=== PATIENT | female | born 1960 | race Caucasian/White ===

== ENCOUNTER 2018-02-18 23:31 | Emergency (ER) | payer MEDICAID, SELFPAY ==
--- NOTE | 2018-02-18 22:52 | RAD_ITS ---
STUDY: X-RAY - RIGHT FOOT CLINICAL: Female, 57 years old. Foot pain after injury. TECHNIQUE: 3 view(s) of the foot. COMPARISON: None. FINDINGS: Dorsal enthesophyte and plantar spur of the calcaneus. Possible avulsion injury from the anterior calcaneus, lateral surface versus an unusual os peroneum. Normal talus. Normal tarsal bones. Normal visualized subtalar, talonavicular, calcaneocuboid, tarsal and tarsometatarsal articulations. Chronic cyst formation in the head of the fifth metatarsal. There is degenerative arthrosis of the metatarsophalangeal joint of the hallux . Normal tibial and fibular sesamoid bones. Normal interphalangeal joint of the great toe. Normal phalanges of the great toe. Normal second through fifth metatarsophalangeal joints. Normal interphalangeal joints and phalanges of the lesser toes. The soft tissue structures are unremarkable. RAD/Foot min 3 Views IMPRESSION: Possible avulsion injury (calcaneocuboid ligament) from the lateral surface of the anterior calcaneus versus an unusual os peroneum. Otherwise, negative for fracture or dislocation. Degenerative changes at the first metatarsophalangeal joint. Degenerative cysts of the head of the fifth metatarsal. Electronically Signed: Rocío Thornton MD at 23:31 EDT , Service support ,
--- NOTE | 2018-02-18 22:52 | RAD_ITS ---
STUDY: X-RAY - RIGHT ANKLE REASON FOR EXAM: Female, 57 years old. Right ankle pain after injury. TECHNIQUE: 3 view(s) of the ankle. COMPARISON: None. FINDINGS: Normal visualized distal tibia and fibula. Mild chronic hypertrophic changes without acute fracture of the medial malleolus or lateral malleolus. Normal tibiotalar articulation and ankle mortise. Plantar spur and dorsal enthesophyte of the calcaneus. The visualized subtalar, talonavicular, calcaneocuboid and tarsal articulations are normal. Soft tissue swelling. RAD/Ankle min 3 Views IMPRESSION: Soft tissue swelling without underlying fracture deformity. Electronically Signed: Rocío Thornton MD at 23:32 EDT , Service support ,
--- NOTE | 2018-02-19 01:16 | ED.VISSUMM ---
- ER Visit Summary Date of Service: 02/19/18 Chief Complaint: Right ankle and foot injury History of Present Illness: The patient is a 57 F inversion injury left ankle and foot at 1630 today. Missed the last step. No falls or head injuries. No paresthesias. No history of fractures. No medicines taken prior to arrival. States does have a history of gastric ulcers in the past. No paresthesias. Pain with ambulation. Physical Examination: General: Alert and oriented ?3, no acute distress HEENT: Normocephalic, atraumatic. Moist mucosa membranes Neck: supple, nontender. Cardiovascular: Regular rate and rhythm, no murmurs Respiratory: Normal breath sounds, symmetric, no distress Abdomen: Soft, nontender, nondistended Extremities: right lower extremity: No knee pain. There is mild lateral malleolus tenderness with swelling. Tender to the midfoot and proximal fifth base. Skin intact. Neuro: no focal neurological deficits. Test Results: X-ray right ankle and foot: No fracture dislocation Emergency Department Course and Treatment: Ice was placed, Tylenol given. X-rays negative. Aircast and crutches. Continue Tylenol. Patient will follow-up as an outpatient. All questions were answered. Treatment Plan: [] Disposition: Discharge Impression: Right foot and ankle sprain This note was generated with [employer] dictation software. It may contain incorrect words, spelling, and punctuation that were not noted in review of the chart prior to signing ED Disposition - Plan for ED Patient: Disposition: Home or Assisted Living Diagnosis: Strain of right ankle and foot Referrals: Sarah Fraser MD [Primary Care Provider] -
--- NOTE | 2018-02-19 01:20 | ED.DCSUM_ITS ---
- ER Visit Summary Date of Service: 02/19/18 Chief Complaint: Right ankle and foot injury History of Present Illness: The patient is a 57 F inversion injury left ankle and foot at 1630 today. Missed the last step. No falls or head injuries. No paresthesias. No history of fractures. No medicines taken prior to arrival. States does have a history of gastric ulcers in the past. No paresthesias. Pain with ambulation. Physical Examination: General: Alert and oriented ?3, no acute distress HEENT: Normocephalic, atraumatic. Moist mucosa membranes Neck: supple, nontender. Cardiovascular: Regular rate and rhythm, no murmurs Respiratory: Normal breath sounds, symmetric, no distress Abdomen: Soft, nontender, nondistended Extremities: right lower extremity: No knee pain. There is mild lateral malleolus tenderness with swelling. Tender to the midfoot and proximal fifth base. Skin intact. Neuro: no focal neurological deficits. Test Results: X-ray right ankle and foot: No fracture dislocation Emergency Department Course and Treatment: Ice was placed, Tylenol given. X- rays negative. Aircast and crutches. Continue Tylenol. Patient will follow- up as an outpatient. All questions were answered. Treatment Plan: [] Disposition: Discharge Impression: Right foot and ankle sprain This note was generated with [employer] dictation software. It may contain incorrect words, spelling, and punctuation that were not noted in review of the chart prior to signing ED Disposition - Plan for ED Patient: Disposition: Home or Assisted Living Diagnosis: Strain of right ankle and foot Referrals: Sarah Fraser MD [Primary Care Provider] -
== END 2018-02-18 23:45 | disposition home or self-care (01) ==
PROVIDERS: Emergency Provider Emergency Medicine; Family Provider Internal Medicine; PCP Internal Medicine
DX: S93.401A Sprain of unspecified ligament of right ankle, initial encounter (principal); X50.1XXA Overexertion from prolonged static or awkward postures, initial encounter; S93.601A Unspecified sprain of right foot, initial encounter; Z87.19 Personal history of other diseases of the digestive system; Z79.899 Other long term (current) drug therapy; I10 Essential (primary) hypertension; E78.00 Pure hypercholesterolemia, unspecified
CPT/HCPCS: 73610; 73630; 99283

== ENCOUNTER 2019-03-04 21:38 | Emergency (ER) | payer MEDICAID, SELFPAY ==
[2019-03-04 21:38] VITALS: BP 140/97; PULSE 91; RESP 15; TEMP 36.4; BMI 33.3
--- NOTE | 2019-03-04 22:27 | ED.RN ---
pt was asked to provide a urine sample. pt was unable to going. pt was encouraged to drink. water bottle in patient hand. irasema medina rn [id number]
--- NOTE | 2019-03-04 22:29 | ED.DCSUM_ITS ---
- ER Visit Summary Date of Service: 03/04/19 Chief Complaint: Urinary frequency History of Present Illness: The patient is a 58 F presenting with urinary frequency. She states the symptoms started 1 day ago. She has had similar symptoms in the past with UTIs. She has bilateral flank pain left greater than right. She denies hematuria. She denies dysuria. Denies fever. Denies nausea or vomiting. Denies abdominal pain. Denies other complaints. Physical Examination: Vitals are stable. Patient is afebrile. Alert no acute distress. HEENT exam is unremarkable. Neck is supple. Lungs are clear and equal bilaterally. Heart is regular rate and rhythm. Abdomen is soft nontender nondistended. No guarding or rebound Back: Left mild left CVA tenderness Extremities are unremarkable. Skin is warm and dry. Remainder of exam is unremarkable. Emergency Department Course and Treatment: Urinalysis shows 10-25 white blood cells, 0 red cells, 0 epithelial cells. Patient was given Cipro and a prescription for Cipro. She is advised to follow up with her primary care physician. Advised to return to ED if worsening complaints. Disposition: Discharge home Impression: UTI This note was generated with [employer] dictation software. It may contain incorrect words, spelling, and punctuation that were not noted in review of the chart prior to signing ED Disposition - Plan for ED Patient: Instructions: ED UTI Cystitis Female Prescriptions: Ciprofloxacin [Cipro] 500 mg PO BID #14 tablet Referrals: Sarah Fraser MD [Primary Care Provider] -
[2019-03-04 23:10] LABS: Bacteria 0 SEEN /hpf (None Seen); Mucous, Urine 0 SEEN /hpf (<or=2+); Red Blood Cells-Urine 0 SEEN /hpf (0-5); Squamous Epithelial Cells - UA 0 SEEN /hpf (5-10)
[2019-03-04 23:12] LABS: Color, Urine Yellow (Yellow); Glucose, Dipstick Normal (Normal); Ketone-Dipstick Negative (Negative); Leukocyte Esterase-Dipstick 500 /ul (Negative); Nitrite-Dipstick Negative (Negative); Occult Blood-Urine 50 /ul (Negative); Protein-Dipstick 30 mg/dl (Negative); Urine Bilirubin Dipstick Negative (Negative); Urine Clarity Sl. Cloudy (Clear); Urine Urobilinogen Normal (Normal)
[2019-03-04 23:19] LABS: White Blood Cells 10-25 SEEN /hpf (0-5)
--- NOTE | 2019-03-04 23:27 | ED.DEP ---
ED Disposition - Plan for ED Patient: Instructions: ED UTI Cystitis Female Prescriptions: Ciprofloxacin [Cipro] 500 mg PO BID #14 tablet Referrals: Sarah Fraser MD [Primary Care Provider] -
[2019-03-04] MEDS: Ciprofloxacin 500 MG Tablet PO (23:34)
== END 2019-03-04 23:34 | disposition home or self-care (01) ==
LOC: ED 22:21
PROVIDERS: Emergency Provider Emergency Medicine; Family Provider Internal Medicine; PCP Internal Medicine
DX: N39.0 Urinary tract infection, site not specified (principal); Z87.440 Personal history of urinary (tract) infections; I10 Essential (primary) hypertension; G40.909 Epilepsy, unspecified, not intractable, without status epilepticus; Z79.899 Other long term (current) drug therapy
CPT/HCPCS: 81001; 99282

== ENCOUNTER 2019-05-14 03:22 | Emergency (ER) | payer MEDICAID, SELFPAY ==
[2019-05-14 03:23] VITALS: BP 139/87; PULSE 78; RESP 16; TEMP 36.6; O2SAT 92; BMI 35.2
[2019-05-14 05:13] LABS: Color, Urine Yellow (Yellow); Glucose, Dipstick Normal (Normal); Ketone-Dipstick Negative (Negative); Leukocyte Esterase-Dipstick 500 /ul (Negative); Nitrite-Dipstick Negative (Negative); Occult Blood-Urine 10 /ul (Negative); Protein-Dipstick 30 mg/dl (Negative); Specific Gravity, Urine 1.025 (1.002-1.030); Urine Bilirubin Dipstick Negative (Negative); Urine Clarity Sl. Cloudy (Clear); Urine Urobilinogen 1 mg/dl (Normal)
--- NOTE | 2019-05-14 05:16 | ED.DCSUM_ITS ---
- ER Visit Summary Date of Service: 05/14/19 Chief Complaint: Possible bladder infection History of Present Illness: The patient is a 58 F who presents with a possible bladder infection that began today. Patient states she has been having some urinary frequency today. Patient denies any dysuria or hematuria. Patient does admit to some low back pain. Patient admits to some nausea but denies any vomiting. Patient denies any fevers or chills. Patient denies any chest pain or shortness of breath. Physical Examination: Vital signs are stable. Patient is afebrile. Patient is in no acute distress. Oral mucosa is pink and moist. Neck is supple. Trachea is midline. There is no JVD noted. Heart was regular rate and rhythm. Lungs are clear and equal bilaterally. Abdomen is soft. Bowel sounds are normal. There is some mild tenderness in the lower abdomen. There is no rebound or guarding noted. Cranial nerves II through XII are intact. There are no focal motor or sensory deficits noted. Test Results: Urinalysis was obtained. Leukocyte esterase was 500 with 25-50 white blood cells and 1+ bacteria. Emergency Department Course and Treatment: Patient was given a prescription for Cipro since she is allergic to Bactrim and penicillins. Patient was given her first dose here. Patient was instructed to follow-up with her primary care physician in 3 to 5 days for further evaluation. Patient understood and was agreeable with the plan. All questions were answered. Disposition: Discharge home Impression: 1. Urinary tract infection This note was generated with [employer] dictation software. It may contain incorrect words, spelling, and punctuation that were not noted in review of the chart prior to signing ED Disposition - Plan for ED Patient: Disposition: Home or Assisted Living Diagnosis: Urinary tract infection Instructions: Bladder Infection, Female (Adult) Prescriptions: Ciprofloxacin [Cipro] 500 mg PO BID #6 tab Prescription Printed Referrals: Sarah Fraser MD [Primary Care Provider] - 3-5 Days
[2019-05-14 05:24] LABS: Bacteria 1+ /hpf (None Seen); Mucous, Urine RARE /hpf (<or=2+); Red Blood Cells-Urine 0-5 SEEN /hpf (0-5); Squamous Epithelial Cells - UA 0-5 SEEN /hpf (5-10); White Blood Cells 25-50 SEEN /hpf (0-5)
[2019-05-14] MEDS: Ciprofloxacin 250 MG Tablet 500 MG PO (06:13)
[2019-05-14 06:15] VITALS: RESP 16
== END 2019-05-14 06:16 | disposition home or self-care (01) ==
PROVIDERS: Emergency Provider Emergency Medicine; Family Provider Internal Medicine; PCP Internal Medicine
DX: N39.0 Urinary tract infection, site not specified (principal); I10 Essential (primary) hypertension; E78.00 Pure hypercholesterolemia, unspecified; G40.909 Epilepsy, unspecified, not intractable, without status epilepticus; Z79.899 Other long term (current) drug therapy
CPT/HCPCS: 81001; 99283

== ENCOUNTER 2019-10-15 16:22 | Emergency (ER) | payer MEDICAID, SELFPAY ==
[2019-10-15 16:23] VITALS: BP 147/87; PULSE 73; RESP 15; TEMP 36.4; O2SAT 100; BMI 26.4
--- NOTE | 2019-10-15 16:32 | RAD_ITS ---
HISTORY: HISTORY: FALL TODAY, PAIN 5TH [facility] XR Hand Min 3 Views COMPARISON: None FINDINGS: # of images incl. paperwork: 3 3 views of the right hand. On the volar surface of the proximal and of the third distal phalanx there is a 1 x 1 mm calcification which could represent an avulsion fracture from the insertion of the flexor tendon. Interphalangeal joint arthritis is mild. First carpometacarpal joint arthritis is mild with lateral subluxation of the first metacarpal on the trapezium. No foreign bodies are perceived. RAD/Hand Min 3 Views IMPRESSION: No evidence of acute fracture or dislocation. No evidence of injury to the fifth digit. On the plantar surface of the proximal end of the third distal phalanx there is a 1 x 1 mm ossicle which could represent an avulsion fracture. at 2227 Reported and signed by: Chris Levine MD Electronically Signed: Chris Levine MD at 22:26 EST Tel , Service support ,
--- NOTE | 2019-10-15 16:33 | ED.DCSUM_ITS ---
History of Present Illness Chief Complaint: Upper Extremity Injury Detail of Chief Complaint: Left hand and right hip injury Informant: Patient Onset: Today Current Severity: Moderate Maximum Severity: Moderate Narrative: Patient presents after fall on icy sidewalk earlier this morning. She states she injured her left hand and her right hip. She has been able to ambulate think she just bruised her hip. She is left-hand dominant. She has not taken anything for pain. She denies striking her head or any neck or back pain. - Past Medical History (1) Hypertension Status: Chronic (2) High cholesterol Status: Chronic (3) GERD (gastroesophageal reflux disease) Status: Chronic (4) Seizure Status: Chronic Past Medical History - Allergies and Home Meds Allergies/Adverse Reactions: Allergies ibuprofen Allergy (Verified 05/14/19 03:28) Swelling Penicillins Allergy (Verified 05/14/19 03:28) Angioedema sulfamethoxazole [From ] Allergy (Verified 05/14/19 03:28) Hives trimethoprim [From ] Allergy (Verified 05/14/19 03:28) Hives Primary Care Physician: Sarah Fraser MD [Primary Care Provider] - Prior records reviewed: Yes Smoking Status: Never smoker Review of Systems General: Denies: Chills, Fever Eyes: Denies: Visual changes - bilaterally ENT: Denies: Bilateral ear pain Cardiovascular: Denies: Chest pain Respiratory: Denies: Dyspnea, Cough Gastrointestinal: Denies: Abdominal pain, Nausea, Vomiting Genitourinary: Denies: Hematuria Musculoskeletal: Reports: Extremity Pain. Denies: Neck pain, Back pain Skin: Denies: Rash, Wounds Neurological: Denies: Weakness, Parasthesia Hematologic: Denies: Easy bruising Allergy: Denies: Uticaria Physical Exam Vital Signs/Narrative: Vital Signs Temp Pulse Resp BP Pulse Ox 10/15/19 16:23 97.5 F L 73 15 147/87 H 100 Inital Vital Signs reviewed: Yes General: Well nourished, Well developed Head: Normocephalic ENT: Moist mucous membranes Neck: Supple Cardiovascular: Regular rate, Regular rhythm Respiratory: No distress, CTA bilaterally Abdomen: Soft, Nontender Extremities: - - Patient has mild tenderness in the left hand along the base of the fifth finger and over the fifth metacarpal. No deformity noted. She has good cap refill distally with good sensation. She can wiggle all fingers. Patient has tenderness of the greater trochanter of the right hip. She has no pain with logroll and normal range of motion at the hip. Skin: Normal color Neurological: Alert, Oriented x3 Psychological: Normal affect Diagnostic/Tx/Re-eval Left hand x-rays per my review reveal no evidence of fracture. - Medical Decision Making Patient is given Tylenol for pain as she does have an allergy to anti- inflammatories. Left hand is placed in an [place] wrap. Should be referred to orthopedics if not improving. ED Disposition - Plan for ED Patient: Disposition: Home or Assisted Living Diagnosis: Hand contusion, Contusion, hip, Fall Instructions: CONTUSION, Upper Extremity Referrals: Sarah Fraser MD [Primary Care Provider] - Lynn Pedraza DO [STAFF PHYSICIAN] - 1 Week if not improving
[2019-10-15] MEDS: Acetaminophen 500 MG Tablet 1000 MG PO (16:38)
== END 2019-10-15 17:25 | disposition home or self-care (01) ==
PROVIDERS: Emergency Provider Emergency Medicine; Family Provider Internal Medicine; PCP Internal Medicine
DX: S60.222A Contusion of left hand, initial encounter (principal); S70.01XA Contusion of right hip, initial encounter; W00.0XXA Fall on same level due to ice and snow, initial encounter; Y93.9 Activity, unspecified; Y92.480 Sidewalk as the place of occurrence of the external cause; Y99.9 Unspecified external cause status; I10 Essential (primary) hypertension; E78.00 Pure hypercholesterolemia, unspecified; K21.9 Gastro-esophageal reflux disease without esophagitis; Z79.899 Other long term (current) drug therapy; Z88.0 Allergy status to penicillin; Z88.1 Allergy status to other antibiotic agents; Z88.2 Allergy status to sulfonamides
CPT/HCPCS: 73130; 99283

== ENCOUNTER → 2020-10-21 17:29 | Outpatient (CLI) | payer MEDICAID, SELFPAY | PROVIDERS: PCP Internal Medicine; Referring Provider Nurse Practitioner; Visit Provider Nurse Practitioner | DX: Z20.828 Contact with and (suspected) exposure to other viral communicable diseases (principal) | CPT/HCPCS: 87635; C9803; U0003 ==

== ENCOUNTER 2021-05-09 05:41 | Emergency (ER) | payer MEDICAID, SELFPAY ==
[2021-05-09 05:42] VITALS: BP 122/79; PULSE 75; RESP 16; TEMP 36.8; O2SAT 96; BMI 26.4
--- NOTE | 2021-05-09 05:44 | ED.VIS.FEGU ---
HPI HPI - Female History of Present Illness Chief Complaint: Complaint Informant: patient Pain Pain: Positive for Pelvic Pain Onset: Days (3) Context: Gradual Onset Timing: Continuous Quality: Positive for Aching Location: Suprapubic Current Severity: Mild Maximum Severity: Mild Worsened by: - (urinating) Relieved by: - (nothing) Associated Symptoms Associated Symptoms: Positive for Frequency and Urgency; Negative for Dysuria and Hematuria Narrative Narrative: Patient presents by EMS saying that she is concerned she has a bladder infection. She states she has had these before and this feels similar except the pain is a little worse. She denies any nausea, vomiting, fevers, back pain although she has chronic low back pain that has not changed. No hematuria or urinary retention. No vaginal complaints. [facility] Medical History (Updated 05/09/21 @ 06:[address] Vidal Holland MD) GERD (gastroesophageal reflux disease) High cholesterol Hypertension Seizure Home Medications Omeprazole [Prilosec] 40 mg PO DAILY 03/26/14 [History Last Taken 03/04/19] hydrochlorothiazide 25 mg PO DAILY 03/26/14 [History Last Taken 03/04/19] phenobarbital 97.2 mg PO BID 03/26/14 [History Last Taken 03/04/19] phenytoin sodium extended 200 mg PO BID 03/26/14 [History Last Taken 03/04/19] amlodipine 5 mg PO DAILY 07/22/16 [History Last Taken 03/04/19] Allergy/AdvReac Type Severity Reaction Status Date / Time ibuprofen Allergy Swelling Verified 05/14/19 03:28 Penicillins Allergy Angioedema Verified 05/14/19 03:28 sulfamethoxazole Allergy Hives Verified 05/14/19 03:28 [From ] trimethoprim [From ] Allergy Hives Verified 05/14/19 03:28 Social History Smoking Status: Never smoker ROS ROS ED Constitutional Constitutional ED: Denies chills or fever(s) Eyes Eyes: Denies change in vision or diplopia ENT ENT ED: Denies rhinorrhea or sore throat Cardiovascular Cardiovascular: Denies chest pain or palpitations Respiratory/Chest Respiratory/Chest: Denies cough or dyspnea Gastrointestinal Gastrointestinal: Reports abdominal pain; Denies diarrhea, nausea or vomiting Genitourinary Genitourinary ED: Reports as per HPI, urinary frequency and urinary urgency; Denies dysuria or hematuria Musculoskeletal Musculoskeletal: Reports back pain; Denies neck pain Integumentary Denies abscess or rash Neurologic Neurologic: Denies headache(s), paresthesias or weakness Psychiatric Psychiatric: Denies anxiety or suicidal thoughts EXAM Physical Exam Const Vital Signs: 05/09/21 05:42 Temperature 98.3 F Temperature Source Oral Pulse Rate 75 Respiratory Rate 16 Blood Pressure 122/79 H Blood Pressure Mean 93 Pulse Ox 96 Oxygen Delivery Method Room Air Positive well nourished and well developed General Appearance ED: well developed and NAD HEENT Reports moist mucous membranes normocephalic and atraumatic Eyes PERRL and EOMs intact bilaterally Neck full ROM and supple GI non-distended Auscultation: normoactive bowel sounds Palpation: soft and tender suprapubic; Negative for guarding or rebound tenderness present Back/Spine no CVA tenderness General Back: other FROM Extremity normal to inspection General Extremety ED: Negative for edema or tenderness General Extremity: Negative for edema Neuro oriented x3, CN's II-XII intact bilaterally and no sensory deficits noted Sensorium / Orientation: awake and alert Motor Exam: strength 5/5 throughout Skin no rashes or lesions noted and no wounds MDM MDM MDM Narrative Medical decision making narrative: Urinalysis consistent with infection/cystitis. Given patient's reaction to antibiotics including hives from Bactrim and angioedema to penicillins, I think at this time the most appropriate first-line treatment is a dose of fosfomycin which is ordered for prior to discharge. Lab Data Attestation: I reviewed the patient's lab results. Labs: Laboratory Results - last 24 hr 05/09/21 06:05 Urine Color Yellow Urine Clarity Clear Urine pH 7.0 Ur Specific [place] 1.010 Urine Protein 30 H Urine Glucose (UA) Normal Urine Ketones 5 H Urine Occult Blood 25 H Urine Nitrite Negative Urine Bilirubin Negative Urine Urobilinogen 1 H Ur Leukocyte Esterase 500 H Urine RBC 0-5 SEEN Urine WBC >100 SEEN Ur Squamous Epith Cells 0-5 SEEN Urine Bacteria 2+ Urine Mucus 0 SEEN Discharge Plan Triage Chief Complaint: Complaint ED Provider: Vidal Holland Dx/Rx/DC Orders Clinical Impression: Acute cystitis Instructions: Understanding Urinary Tract ... Prescriptions: No Action phenobarbital 97.2 MG tablet 97.2 mg PO BID RF: 0 phenytoin sodium extended 100 MG capsule 200 mg PO BID RF: 0 hydrochlorothiazide 25 MG tablet 25 mg PO DAILY RF: 0 Omeprazole [Prilosec] 40 MG capsule 40 mg PO DAILY RF: 0 amlodipine 5 MG tablet 5 mg PO DAILY RF: 0 Primary Care Provider: Sarah Fraser Referrals: Sarah Fraser MD [Primary Care Provider] - 3-5 Days if not improving Disposition Disposition: Home, Self Care
[2021-05-09 06:09] LABS: Mucous, Urine 0 SEEN /hpf (<or=2+)
[2021-05-09 06:10] LABS: Color, Urine Yellow (Yellow); Glucose, Dipstick Normal (Normal); Ketone-Dipstick 5 mg/dl (Negative); Leukocyte Esterase-Dipstick 500 /ul (Negative); Nitrite-Dipstick Negative (Negative); Occult Blood-Urine 25 /ul (Negative); Protein-Dipstick 30 mg/dl (Negative); Urine Bilirubin Dipstick Negative (Negative); Urine Clarity Clear (Clear); Urine Urobilinogen 1 mg/dl (Normal)
[2021-05-09 06:18] LABS: Bacteria 2+ /hpf (None Seen); Red Blood Cells-Urine 0-5 SEEN /hpf (0-5); Squamous Epithelial Cells - UA 0-5 SEEN /hpf (5-10); White Blood Cells >100 SEEN /hpf (0-5)
[2021-05-09] MEDS: FOSFOMYCIN TROMETHAMINE 3 GM PACKET PO (07:26)
[2021-05-09 07:29] VITALS: BP 119/85; PULSE 65; RESP 15; O2SAT 96
== END 2021-05-09 07:30 | disposition home or self-care (01) ==
PROVIDERS: Emergency Provider Emergency Medicine; PCP Internal Medicine
DX: N30.00 Acute cystitis without hematuria (principal); I10 Essential (primary) hypertension; K21.9 Gastro-esophageal reflux disease without esophagitis; Z79.899 Other long term (current) drug therapy
CPT/HCPCS: 81001; 99284

== ENCOUNTER → 2021-09-29 22:53 | Outpatient (CLI) | payer BC, MEDICAID, SELFPAY | PROVIDERS: PCP Internal Medicine; Visit Provider Physician Assistant | DX: Z11.52 Encounter for screening for COVID-19 (principal) | CPT/HCPCS: 87635; U0005; U0003 ==

== ENCOUNTER 2021-10-12 20:46 | Emergency (ER) | payer BC, MEDICAID, SELFPAY ==
[2021-10-12 20:47] VITALS: BP 137/77; PULSE 73; RESP 18; TEMP 35.7; O2SAT 100; BMI 33.2
--- NOTE | 2021-10-12 21:10 | RAD_ITS ---
EXAM: XR LEFT SHOULDER COMPLETE, 2 OR MORE VIEWS CLINICAL INDICATION: Injury/Pain TECHNIQUE: Two or more views of the left shoulder. This report was created using [employer] report generation technology. COMPARISON: None. FINDINGS: BONES/JOINTS: Mild degenerative changes of the acromiohumeral joint. Type II acromion with curved undersurface. No subacromial enthesophyte. No acute or healing fracture or malalignment. No sclerotic or destructive changes observed. SOFT TISSUES: No focal soft tissue abnormalities. No soft tissue swelling or gas. No radiopaque foreign body. RAD/Shoulder min 2 Views IMPRESSION: No acute or healing fracture or malalignment. Electronically Signed: Kb Singh MD at 22:02 EST Tel , Service support ,
--- NOTE | 2021-10-12 21:47 | EX.ED.DYSGE1 ---
HPI History of Present Illness Chief Complaint: Complaint Informant: patient Onset/Context/Timing Onset: Yesterday (Urinary symptoms started yesterday with frequency) and Month(s) (Atraumatic left shoulder pain for 1 to 2 months) Timing: Continuous (Shoulder pain is continuous), Intermittent and Waxes and wanes Quality: and musculoskeletal, pain Location: Left shoulder Current Severity: Mild Maximum Severity: Moderate Worsened by: Use Relieved by: Rest Associated Symptoms Associated Symptoms: No other symptoms Narrative Narrative: Patient is an elderly woman who presents with atraumatic left shoulder pain. She states she took ibuprofen with no improvement. She denies paresthesia, anesthesia medics. She denies prior fracture, dislocation or subluxation. She does report frequency without dysuria or hematuria. She states she has not had urinary tract infection in some time. She denies any fever, chills or night sweats. She denies nausea, vomiting or diarrhea. She denies flank pain. Prior similar symptoms: Yes Recent Illness/Hospitalization: No PFSH PFSH Medical History Encounter for screening for COVID-19 GERD (gastroesophageal reflux disease) High cholesterol Hypertension Seizure Home Medications Omeprazole [Prilosec] 40 mg PO DAILY 03/26/14 [History Last Taken 03/04/19] hydrochlorothiazide 25 mg PO DAILY 03/26/14 [History Last Taken 03/04/19] phenobarbital 97.2 mg PO BID 03/26/14 [History Last Taken 03/04/19] phenytoin sodium extended 200 mg PO BID 03/26/14 [History Last Taken 03/04/19] amlodipine 5 mg PO DAILY 07/22/16 [History Last Taken 03/04/19] ciprofloxacin HCl 500 mg PO BID #6 tablet 10/12/21 [Rx Last Taken Unknown] hydrocodone-acetaminophen 1 tab PO Q6H PRN PRN 3 Days #10 tablet 10/12/21 [Rx Last Taken Unknown] Allergy/AdvReac Type Severity Reaction Status Date / Time ibuprofen Allergy Swelling Verified 05/14/19 03:28 Penicillins Allergy Angioedema Verified 05/14/19 03:28 sulfamethoxazole Allergy Hives Verified 05/14/19 03:28 [From ] trimethoprim [From ] Allergy Hives Verified 07/14/19 03:28 Social History (Updated 10/12/21 @ 21:[address] Madi Clifford MD) household members: none Smoking Status: Never smoker substance use type: does not use ROS ROS ED Constitutional Constitutional ED: Denies chills, fever(s), subjective, sweats or weight loss Eyes Eyes: Denies blurry vision, change in vision or diplopia ENT ENT ED: Denies ear pain, rhinorrhea or sore throat Cardiovascular Cardiovascular: Denies chest pain, palpitations or racing heartbeat Respiratory/Chest Respiratory/Chest: Denies cough, dyspnea, dyspnea on exertion or sputum Gastrointestinal Gastrointestinal: Denies abdominal pain, diarrhea, nausea or vomiting Genitourinary Genitourinary ED: Reports urinary frequency; Denies dysuria or hematuria Musculoskeletal Musculoskeletal: Reports other Details: Left shoulder pain ; Denies arthralgias, back pain, myalgias or neck pain Integumentary Denies rash Neurologic Neurologic: Denies headache(s), paresthesias or weakness EXAM Physical Exam Const Vital Signs: 10/12/21 20:47 10/12/21 22:47 Temperature 96.2 F L Temperature Source Temporal Pulse Rate 73 74 Respiratory Rate 18 16 Blood Pressure 137/77 H 130/81 H Blood Pressure Mean 97 97 Pulse Ox 100 99 Oxygen Delivery Method Room Air Room Air Positive well nourished and well developed General Appearance ED: well developed and NAD; Negative for cyanotic, diaphoretic or pallor HEENT Reports TM's clear and moist mucous membranes Negative for trauma or tenderness Tympanic Membrane ED: Yes TM's clear Eyes PERRL and EOMs intact bilaterally General Eye ED: Negative for pale conjunctiva or scleral icterus Neck no lymphadenopathy, supple and no JVD Resp normal respiratory effort and clear to auscultation bilaterally Cardio regular rate, regular rhythm, S1 normal heart sound, S2 normal heart sound and no murmurs GI normal to inspection, nondistended, normoactive bowel sounds, non-tender and non-distended Auscultation: normoactive bowel sounds Palpation: soft Back/Spine no CVA tenderness Thoracic Spine / Upper Back: Negative for thoracic spinal tenderness or paraspinal muscle tenderness Extremity normal to inspection Extremity Narrative: Axillary, median, radial and ulnar function intact. Patient has pain with abduction past 90 degrees. Negative drop test. Neuro oriented x3, CN's II-XII intact bilaterally and no sensory deficits noted Sensorium / Orientation: alert Motor Exam: strength 5/5 throughout Psych mental status grossly normal Skin no rashes or lesions noted and no wounds General Skin Exam: Negative for jaundice or pallor MDM MDM MDM Narrative Medical decision making narrative: With her complaining of frequency will obtain UA to rule out urinary tract infection. Suspect she has impingement syndrome. Will obtain x-ray to see if there is any evidence of calcification of the supraspinatus tendon versus degenerative changes versus occult fracture. Lab Data Attestation: I reviewed the patient's lab results. Labs: Laboratory Results - last 24 hr 10/12/21 22:33 Urine Color Yellow Urine Clarity Sl. Cloudy Urine pH 6.5 Ur Specific [place] 1.015 Urine Protein 30 H Urine Glucose (UA) Normal Urine Ketones Negative Urine Occult Blood 10 H Urine Nitrite Positive H Urine Bilirubin Negative Urine Urobilinogen Normal Ur Leukocyte Esterase 500 H Urine RBC 0 SEEN Urine WBC 25-50 SEEN Ur Squamous Epith Cells 0-5 SEEN Urine Bacteria 3+ Urine Mucus 0 SEEN Radiography Chest X-Ray - ED: Read by ED Physician (4 view x-ray of the shoulder was obtained and interpreted by me as negative is no fracture, subluxation, dislocation. There is no evidence of calcification of the supraspinatus tendon. There is no evidence of prior fracture. The x-ray was interpreted by me at 2152.) Diagnostic Testing: Clinical Impression(s) from Imaging Studies Shoulder X-Ray 10/12/21 21:10 IMPRESSION: No acute or healing fracture or malalignment. Electronically Signed: Kb Singh MD at 22:02 EST Tel , Service support , Discharge Plan Triage Chief Complaint: Complaint ED Provider: Madi Clifford Dx/Rx/DC Orders Clinical Impression: Acute cystitis, Impingement syndrome of left shoulder Prescriptions: New hydrocodone-acetaminophen [hydrocodone-acetaminophen] 1 TABLET tablet 1 tab PO Q6H PRN PRN (Reason: Pain) 3 Days Qty: 10 RF: 0 ciprofloxacin HCl [ciprofloxacin HCl] 500 MG tablet 500 mg PO BID Qty: 6 RF: 0 No Action phenobarbital 97.2 MG tablet 97.2 mg PO BID RF: 0 phenytoin sodium extended 100 MG capsule 200 mg PO BID RF: 0 hydrochlorothiazide 25 MG tablet 25 mg PO DAILY RF: 0 Omeprazole [Prilosec] 40 MG capsule 40 mg PO DAILY RF: 0 amlodipine 5 MG tablet 5 mg PO DAILY RF: 0 Primary Care Provider: Sarah Fraser Referrals: Sarah Fraser MD [Primary Care Provider] - Disposition Disposition: Home, Self Care
[2021-10-12 22:40] LABS: Mucous, Urine 0 SEEN /hpf (<or=2+); Red Blood Cells-Urine 0 SEEN /hpf (0-5)
[2021-10-12 22:47] VITALS: BP 130/81; PULSE 74; RESP 16; O2SAT 99
[2021-10-12 23:05] LABS: Color, Urine Yellow (Yellow); Glucose, Dipstick Normal (Normal); Ketone-Dipstick Negative (Negative); Leukocyte Esterase-Dipstick 500 /ul (Negative); Nitrite-Dipstick Positive (Negative); Occult Blood-Urine 10 /ul (Negative); Protein-Dipstick 30 mg/dl (Negative); Specific Gravity, Urine 1.015 (1.002-1.030); Urine Bilirubin Dipstick Negative (Negative); Urine Clarity Sl. Cloudy (Clear); Urine Urobilinogen Normal (Normal); Urine pH 6.5 (5.0 - 8.0)
[2021-10-12 23:11] LABS: Squamous Epithelial Cells - UA 0-5 SEEN /hpf (5-10); White Blood Cells 25-50 SEEN /hpf (0-5)
[2021-10-12 23:12] LABS: Bacteria 3+ /hpf (None Seen)
[2021-10-12] MEDS: Ciprofloxacin 500 MG Tablet PO (23:25)
== END 2021-10-12 23:27 | disposition home or self-care (01) ==
PROVIDERS: Emergency Provider Emergency Medicine; PCP Internal Medicine
DX: N30.00 Acute cystitis without hematuria (principal); M75.42 Impingement syndrome of left shoulder; I10 Essential (primary) hypertension; K21.9 Gastro-esophageal reflux disease without esophagitis; R56.9 Unspecified convulsions; Z79.899 Other long term (current) drug therapy
CPT/HCPCS: 73030; 81001; 99283

== ENCOUNTER 2021-10-27 06:55 | Emergency (ER) | payer BC, MEDICAID, SELFPAY ==
[2021-10-27 06:56] VITALS: BP 175/96; PULSE 76; RESP 16; TEMP 35.9; O2SAT 92; BMI 30.4
--- NOTE | 2021-10-27 07:03 | RAD_ITS ---
STUDY: X-RAY - RIGHT ANKLE REASON FOR EXAM: Female, 61 years old. Lateral foot and ankle swelling/pain following injury TECHNIQUE: 3 view(s) of the ankle. COMPARISON: 02/18/2018 FINDINGS: Normal visualized distal tibia and fibula. Normal medial and lateral malleoli. Normal tibiotalar articulation and ankle mortise. There are small osseous densities lateral to the calcaneus with associated soft tissue swelling. The visualized subtalar, talonavicular, calcaneocuboid and tarsal articulations are normal. The soft tissue structures are otherwise unremarkable. RAD/Ankle min 3 Views IMPRESSION: 1. Lateral ankle avulsion fractures adjacent to calcaneus. Electronically Signed: Luis Fernando Baker MD ([place]) at 8:20 EST , Service support ,
--- NOTE | 2021-10-27 07:03 | RAD_ITS ---
STUDY: X-RAY - RIGHT FOOT CLINICAL: Female, 61 years old. Lateral foot and ankle pain after injury TECHNIQUE: 3 view(s) of the foot. COMPARISON: None. FINDINGS: There is a plantar calcaneal spur. Osseous densities adjacent to the calcaneus seen only on the frontal view but there is associated soft tissue swelling. Localized soft tissue swelling adjacent to the fifth MTP joint with subtle cortical irregularity involving the fifth metatarsal head and neck although a discrete fracture line is not seen. There is degenerative arthrosis of the metatarsophalangeal joint of the hallux . Normal tibial and fibular sesamoid bones. Normal interphalangeal joint of the great toe. Normal phalanges of the great toe. Normal second through fifth metatarsophalangeal joints. Normal interphalangeal joints and phalanges of the lesser toes. The soft tissue structures are otherwise unremarkable. RAD/Foot min 3 Views IMPRESSION: 1. Possible nondisplaced fracture of the fifth metatarsal head/neck. 2. Avulsion fragments lateral to the calcaneus with associated soft tissue swelling. Electronically Signed: Luis Fernando Baker MD ([place]) at 8:20 EST , Service support ,
--- NOTE | 2021-10-27 07:03 | ED.VIS.LOWEX ---
HPI History of Present Illness Chief Complaint: Lower Extremity Injury Informant: patient Narrative Narrative: 61-year-old female presented to the emergency department with right ankle injury. Patient states that yesterday she missed a step and sustained a inversion injury. She notes swelling and ecchymosis. She states she has not been able to bear weight on it. Located notes that she hit her shoulder but the shoulder seems fine. She denies any head injury. [facility] Medical History Encounter for screening for COVID-19 GERD (gastroesophageal reflux disease) High cholesterol Hypertension Seizure Home Medications Omeprazole [Prilosec] 40 mg PO DAILY 03/26/14 [History Last Taken 03/04/19] hydrochlorothiazide 25 mg PO DAILY 03/26/14 [History Last Taken 03/04/19] phenobarbital 97.2 mg PO BID 03/26/14 [History Last Taken 03/04/19] phenytoin sodium extended 200 mg PO BID 03/26/14 [History Last Taken 03/04/19] amlodipine 5 mg PO DAILY 07/22/16 [History Last Taken 03/04/19] ciprofloxacin HCl 500 mg PO BID #6 tablet 10/12/21 [Rx Last Taken Unknown] hydrocodone-acetaminophen 1 tab PO Q6H PRN PRN 3 Days #10 tablet 10/12/21 [Rx Last Taken Unknown] hydrocodone-acetaminophen 1 tab PO Q6H PRN PRN 3 Days #10 tablet 10/27/21 [Rx Last Taken Unknown] Allergy/AdvReac Type Severity Reaction Status Date / Time ibuprofen Allergy Swelling Verified 10/27/21 06:58 Penicillins Allergy Angioedema Verified 10/27/21 06:58 sulfamethoxazole Allergy Hives Verified 10/27/21 06:58 [From ] trimethoprim [From ] Allergy Hives Verified 10/27/21 06:58 Social History household members: none Smoking Status: Never smoker substance use type: does not use ROS ROS ED Constitutional Constitutional ED: Denies chills or weight loss Eyes Eyes: Denies change in vision or diplopia ENT ENT ED: Denies ear pain, rhinorrhea or sore throat Cardiovascular Cardiovascular: Denies chest pain, orthopnea, palpitations or racing heartbeat Respiratory/Chest Respiratory/Chest: Denies cough, dyspnea or orthopnea Gastrointestinal Gastrointestinal: Denies abdominal pain, diarrhea, nausea or vomiting Genitourinary Genitourinary ED: Denies dysuria, hematuria or urinary frequency Musculoskeletal Musculoskeletal: Reports other Details: See history of present illness ; Denies arthralgias or myalgias Integumentary Denies abscess or rash Neurologic Neurologic: Denies headache(s) or weakness Psychiatric Psychiatric: Denies anxiety, depression, suicidal ideation or suicidal thoughts Endocrine Endocrinology: Denies polydipsia, polyphagia or polyuria Allergic/Immunologic Allergic/Immunologic ED: Denies mouth swelling, tongue swelling or urticaria EXAM Physical Exam Const Vital Signs: 10/27/21 06:56 Temperature 96.6 F L Temperature Source Temporal Pulse Rate 76 Respiratory Rate 16 Blood Pressure 175/96 H Blood Pressure Mean 122 Pulse Ox 92 Oxygen Delivery Method Room Air Positive well nourished and well developed General Appearance ED: well developed HEENT Reports normocephalic, head/scalp atraumatic and moist mucous membranes normocephalic and atraumatic Eyes PERRL and EOMs intact bilaterally Neck no lymphadenopathy, supple and no JVD Resp normal respiratory effort and clear to auscultation bilaterally Cardio regular rate, regular rhythm and no murmurs GI normal to inspection, nondistended, normoactive bowel sounds and non-tender Palpation: soft Back/Spine no CVA tenderness and normal ROM Extremity Extremity Narrative: There is swelling and ecchymosis inferior to the lateral malleolus. She has tenderness of the fifth metatarsal head. No fibular head tenderness. Neurovascular intact. General Extremety ED: Negative for edema General Extremity: Negative for edema Neuro oriented x3 and CN's II-XII intact bilaterally Sensorium / Orientation: alert Motor Exam: strength 5/5 throughout Psych mental status grossly normal Mood & Affect: Negative for depressed or tearful Skin no rashes or lesions noted and no wounds MDM MDM MDM Narrative Medical decision making narrative: My interpretation of the plain films of the left ankle and foot are avulsion fragments adjacent to the calcaneus. Radiology concurs and also notes a possible nondisplaced fracture of the fifth metatarsal head/neck. Patient will receive pain medication boot orthosis and crutches. She is to follow-up with orthopedics. She has seen Dr. Martin in the past Radiography Diagnostic Testing: Clinical Impression(s) from Imaging Studies Ankle X-Ray 10/27/21 07:03 IMPRESSION: 1. Lateral ankle avulsion fractures adjacent to calcaneus. Electronically Signed: Luis Fernando Baker MD ([place]) at 8:20 EST , Service support , Foot X-Ray 10/27/21 07:03 IMPRESSION: 1. Possible nondisplaced fracture of the fifth metatarsal head/neck. 2. Avulsion fragments lateral to the calcaneus with associated soft tissue swelling. Electronically Signed: Luis Fernando Baker MD ([place]) at 8:20 EST , Service support , Discharge Plan Triage Chief Complaint: Lower Extremity Injury ED Provider: Jeffery Shelby Dx/Rx/DC Orders Clinical Impression: Calcaneus fracture, right Instructions: ED Fracture, Foot Prescriptions: New hydrocodone-acetaminophen [hydrocodone-acetaminophen] 1 TABLET tablet 1 tab PO Q6H PRN PRN (Reason: Pain) 3 Days Qty: 10 RF: 0 No Action phenobarbital 97.2 MG tablet 97.2 mg PO BID RF: 0 phenytoin sodium extended 100 MG capsule 200 mg PO BID RF: 0 hydrochlorothiazide 25 MG tablet 25 mg PO DAILY RF: 0 Omeprazole [Prilosec] 40 MG capsule 40 mg PO DAILY RF: 0 amlodipine 5 MG tablet 5 mg PO DAILY RF: 0 hydrocodone-acetaminophen [hydrocodone-acetaminophen] 1 TABLET tablet 1 tab PO Q6H PRN PRN (Reason: Pain) 3 Days Qty: 10 RF: 0 ciprofloxacin HCl [ciprofloxacin HCl] 500 MG tablet 500 mg PO BID Qty: 6 RF: 0 Primary Care Provider: Sarah Fraser Referrals: Vidal Martin MD [NON-STAFF] - As soon as possible Sarah Fraser MD [Primary Care Provider] - Disposition Disposition: Home, Self Care
[2021-10-27 09:04] VITALS: RESP 16
== END 2021-10-27 09:05 | disposition home or self-care (01) ==
PROVIDERS: Emergency Provider Emergency Medicine; PCP Internal Medicine
DX: S92.001A Unspecified fracture of right calcaneus, initial encounter for closed fracture (principal); X58.XXXA Exposure to other specified factors, initial encounter
CPT/HCPCS: 73610; 73630; 99283

== ENCOUNTER 2022-01-12 00:58 | Emergency (ER) | payer BC, MEDICAID, SELFPAY ==
[2022-01-12 00:59] VITALS: BP 138/85; PULSE 84; RESP 16; TEMP 36.6; O2SAT 99; BMI 30.6
[2022-01-12 01:08] LABS: Squamous Epithelial Cells - UA 0 SEEN /hpf (5-10)
[2022-01-12 01:47] LABS: Color, Urine Yellow (Yellow); Glucose, Dipstick Normal (Normal); Ketone-Dipstick 5 mg/dl (Negative); Leukocyte Esterase-Dipstick 100 /ul (Negative); Nitrite-Dipstick Negative (Negative); Occult Blood-Urine 10 /ul (Negative); Protein-Dipstick 30 mg/dl (Negative); Specific Gravity, Urine 1.025 (1.002-1.030); Urine Bilirubin Dipstick Negative (Negative); Urine Clarity Clear (Clear); Urine Urobilinogen 1 mg/dl (Normal)
[2022-01-12 01:57] LABS: Bacteria 1+ /hpf (None Seen); Mucous, Urine RARE /hpf (<or=2+); Red Blood Cells-Urine 0-5 SEEN /hpf (0-5); White Blood Cells 25-50 SEEN /hpf (0-5)
--- NOTE | 2022-01-12 02:20 | EX.ED.DYSGE1 ---
HPI History of Present Illness Chief Complaint: Complaint Narrative Narrative: Patient is a 61-year-old female who states for the past 3 days she has had increasing urinary urgency and frequency with mild dysuria. She states that this evening she could not lay on go to sleep because she was up every 5 to 10 minutes feeling like she had to use the restroom. Patient states she has had UTIs in the past and this feels similar nature and secondary to this presents for evaluation [facility] Medical History Encounter for screening for COVID-19 GERD (gastroesophageal reflux disease) High cholesterol Hypertension Seizure Home Medications Omeprazole [Prilosec] 40 mg PO DAILY 03/26/14 [History Last Taken 03/04/19] hydrochlorothiazide 25 mg PO DAILY 03/26/14 [History Last Taken 03/04/19] phenobarbital 97.2 mg PO BID 03/26/14 [History Last Taken 03/04/19] phenytoin sodium extended 200 mg PO BID 03/26/14 [History Last Taken 03/04/19] amlodipine 5 mg PO DAILY 07/22/16 [History Last Taken 03/04/19] ciprofloxacin HCl [Cipro] 500 mg PO BID 7 Days #14 tab 01/12/22 [Rx Last Taken Unknown] phenazopyridine [Pyridium] 200 mg PO TID 2 Days #6 tab 01/12/22 [Rx Last Taken Unknown] Allergy/AdvReac Type Severity Reaction Status Date / Time ibuprofen Allergy Swelling Verified 10/27/21 06:58 Penicillins Allergy Angioedema Verified 10/27/21 06:58 sulfamethoxazole Allergy Hives Verified 10/27/21 06:58 [From ] trimethoprim [From ] Allergy Hives Verified 10/27/21 06:58 Social History household members: none Smoking Status: Never smoker substance use type: does not use ROS ROS ED Constitutional Constitutional ED: Denies chills or fever(s) ENT ENT ED: Denies sore throat Cardiovascular Cardiovascular: Denies chest pain Respiratory/Chest Respiratory/Chest: Denies cough or dyspnea Gastrointestinal Gastrointestinal: Denies abdominal pain, diarrhea, nausea or vomiting Genitourinary Genitourinary ED: Reports dysuria and urinary frequency; Denies hematuria Musculoskeletal Musculoskeletal: Denies back pain or myalgias Integumentary Denies rash Neurologic Neurologic: Denies headache(s) Hematologic/Lymphatic Hematologic/Lymphatic: Denies easy bleeding or easy bruising EXAM Physical Exam Const Vital Signs: 01/12/22 00:59 01/12/22 02:41 Temperature 97.8 F Temperature Source Oral Pulse Rate 84 Respiratory Rate 16 16 Blood Pressure 138/85 H Blood Pressure Mean 102 Pulse Ox 99 Oxygen Delivery Method Room Air Positive well nourished and well developed General Appearance ED: well developed Eyes PERRL and EOMs intact bilaterally Neck supple Resp normal respiratory effort and clear to auscultation bilaterally Cardio regular rate and regular rhythm GI non-distended GI Narrative: There is mild pain with palpation in the suprapubic region without organomegaly voluntary guarding or rigidity noted Auscultation: normoactive bowel sounds Palpation: soft Back/Spine no CVA tenderness Extremity normal to inspection Neuro oriented x3 and CN's II-XII intact bilaterally Sensorium / Orientation: alert Motor Exam: strength 5/5 throughout Psych mental status grossly normal Skin no rashes or lesions noted MDM MDM MDM Narrative Medical decision making narrative: Patient presented to the ER slightly hypertensive but otherwise with stable vitals. Her history is consistent with a UTI and she does not have any flank pain or a surgical abdomen and therefore I do not feel need for testing other than the UA. The UA showed changes consistent with infection which fits her exam and history. Therefore the urine will be sent for culture to be placed on antibiotics but is otherwise safe for home as she does not have changes to suggest systemic infection Lab Data Attestation: I reviewed the patient's lab results. Labs: Laboratory Results - last 24 hr 01/12/22 01:04 Urine Color Yellow Urine Clarity Clear Urine pH 5.0 Ur Specific [place] 1.025 Urine Protein 30 H Urine Glucose (UA) Normal Urine Ketones 5 H Urine Occult Blood 10 H Urine Nitrite Negative Urine Bilirubin Negative Urine Urobilinogen 1 H Ur Leukocyte Esterase 100 H Urine RBC 0-5 SEEN Urine WBC 25-50 SEEN Ur Squamous Epith Cells 0 SEEN Urine Bacteria 1+ Urine Mucus RARE Discharge Plan Triage Chief Complaint: Complaint ED Provider: Kb Fine Dx/Rx/DC Orders Clinical Impression: Acute cystitis Instructions: UITs Women Prescriptions: New ciprofloxacin HCl [Cipro] 500 mg tablet 500 mg PO BID 7 Days Qty: 14 RF: 0 phenazopyridine [Pyridium] 200 mg tablet 200 mg PO TID 2 Days Qty: 6 RF: 0 No Action phenobarbital 97.2 MG tablet 97.2 mg PO BID RF: 0 phenytoin sodium extended 100 MG capsule 200 mg PO BID RF: 0 hydrochlorothiazide 25 MG tablet 25 mg PO DAILY RF: 0 Omeprazole [Prilosec] 40 MG capsule 40 mg PO DAILY RF: 0 amlodipine 5 MG tablet 5 mg PO DAILY RF: 0 Primary Care Provider: Sarah Fraser Referrals: Sarah Fraser MD [Primary Care Provider] - Disposition Disposition: Home, Self Care Discharge Date/Time: 01/12/22 02:42
[2022-01-12] MEDS: Ciprofloxacin 500 MG Tablet PO (02:40)
[2022-01-12] MEDS: Phenazopyridine 95 MG Tablet 190 MG PO (02:40)
[2022-01-12 02:41] VITALS: RESP 16
== END 2022-01-12 02:42 | disposition home or self-care (01) ==
PROVIDERS: Emergency Provider Emergency Medicine; PCP Internal Medicine; Visit Provider Emergency Medicine
DX: N30.00 Acute cystitis without hematuria (principal); I10 Essential (primary) hypertension; K21.9 Gastro-esophageal reflux disease without esophagitis; Z79.899 Other long term (current) drug therapy
CPT/HCPCS: 81001; 87086; 87088; 99283

== ENCOUNTER 2022-05-20 06:13 | Emergency (ER) | payer BC, MEDICAID, SELFPAY ==
[2022-05-20 06:14] VITALS: BP 145/87; PULSE 85; RESP 16; TEMP 36.1; O2SAT 95; BMI 30.5
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
--- NOTE | 2022-05-20 06:27 | EDS_ITS ---
HPI <Dr. Sonny Russo MD - Last Filed: 05/21/22 01:03> History of Present Illness Chief Complaint: Seizure Informant: patient Narrative Narrative: Patient states that she did not take a dose of her Dilantin and phenobarb last night and was about to take it this morning. She normally does not miss her dosages. She had a seizure this morning. She hit her head. She has slight soreness in the back of her head but nothing else hurts. She is alert and oriented x3 now. She does have a long history of seizure disorder and normally takes her medicines. She has been feeling well recently. No recent illness. No change in medications or dosages. [facility] <Dr. Sonny Russo MD - Last Filed: 05/21/22 01:03> [facility] Medical History Encounter for screening for COVID-19 GERD (gastroesophageal reflux disease) High cholesterol Hypertension Seizure Home Medications Omeprazole [Prilosec] 40 mg PO DAILY 03/26/14 [History Last Taken 03/04/19] hydrochlorothiazide 25 mg tablet 25 mg PO DAILY 03/26/14 [History Last Taken 03/04/19] phenobarbital 97.2 mg tablet 97.2 mg PO BID 03/26/14 [History Last Taken 03/04/19] phenytoin sodium extended 100 mg capsule 200 mg PO BID 03/26/14 [History Last Taken 03/04/19] amlodipine 5 mg tablet 5 mg PO DAILY 07/22/16 [History Last Taken 03/04/19] ciprofloxacin HCl 500 mg tablet (Cipro) 500 mg PO BID 7 days #14 tabs 01/12/22 [Rx Last Taken Unknown] phenazopyridine 200 mg tablet (Pyridium) 200 mg PO TID 2 days #6 tabs 01/12/22 [Rx Last Taken Unknown] Allergy/AdvReac Type Severity Reaction Status Date / Time ibuprofen Allergy Swelling Verified 05/20/22 06:15 Penicillins Allergy Angioedema Verified 05/20/22 06:15 sulfamethoxazole Allergy Hives Verified 05/20/22 06:15 [From ] trimethoprim [From ] Allergy Hives Verified 05/20/22 06:15 Social History household members: none Smoking Status: Never smoker substance use type: does not use ROS <Dr. Sonny Russo MD - Last Filed: 05/21/22 01:03> ROS ED Constitutional Constitutional ED: Denies chills or fever(s) Eyes Eyes: Denies change in vision or diplopia ENT ENT ED: Denies rhinorrhea Cardiovascular Cardiovascular: Denies chest pain or palpitations Respiratory/Chest Respiratory/Chest: Denies cough, dyspnea or dyspnea on exertion Gastrointestinal Gastrointestinal: Denies diarrhea, nausea or vomiting Genitourinary Genitourinary ED: Denies dysuria or hematuria Musculoskeletal Musculoskeletal: Denies neck pain Integumentary Reports other Details: Laceration or abrasion to posterior scalp. Pending final cleaning Neurologic Neurologic: Reports headache(s) Endocrine Endocrinology: Denies polydipsia or polyuria Hematologic/Lymphatic Hematologic/Lymphatic: Reports other Details: No anticoagulation per patient ; Denies easy bleeding or easy bruising Allergic/Immunologic Allergic/Immunologic ED: Denies urticaria EXAM <Dr. Sonny Russo MD - Last Filed: 05/21/22 01:03> Physical Exam Const Vital Signs: 05/20/22 06:14 05/20/22 07:09 05/20/22 07:19 Temperature 97 F L Temperature Source Temporal Pulse Rate 85 98 Respiratory Rate 16 18 74 H Blood Pressure 145/87 H 136/88 H Blood Pressure Mean 106 104 Pulse Ox 95 98 Oxygen Delivery Method Room Air Room Air 05/20/22 08:44 05/20/22 08:46 05/20/22 09:27 Temperature Temperature Source Pulse Rate 84 62 Respiratory Rate 22 H 15 Blood Pressure 147/85 H 124/77 H Blood Pressure Mean 105 Pulse Ox 99 98 Oxygen Delivery Method Room Air Positive well nourished and well developed General Appearance ED: well developed HEENT HEENT Narrative: Patient has dried blood on the posterior occipital scalp area. We need to clean this off to see if there is an area of laceration or just abraded tissue. There is no active bleeding at this time. Eyes EOMs intact bilaterally Chest Wall inspection of chest normal Resp normal respiratory effort and clear to auscultation bilaterally Cardio regular rate, regular rhythm and no murmurs Rate: Negative for bradycardia or tachycardic GI normal to inspection, nondistended, normoactive bowel sounds, non-tender and non-distended Back/Spine Cervical Spine: Negative for cervical spine tenderness Thoracic Spine / Upper Back: Negative for thoracic spinal tenderness Lumbar Spine / Lower Back: Negative for lumbar spinal tenderness Neuro oriented x3 Neuro Narrative: Patient is alert to person place time and year. She did not know the president [place] but states that she does not really pay attention to that. Sensorium / Orientation: alert Psych mental status grossly normal Skin Skin Narrative: Posterior scalp wound as above. <Dr. Angélica Parra DO - Last Filed: 05/20/22 09:08> Physical Exam Const Vital Signs: 05/20/22 06:14 05/20/22 07:09 05/20/22 07:19 Temperature 97 F L Temperature Source Temporal Pulse Rate 85 98 Respiratory Rate 16 18 74 H Blood Pressure 145/87 H 136/88 H Blood Pressure Mean 106 104 Pulse Ox 95 98 Oxygen Delivery Method Room Air Room Air 05/20/22 08:44 05/20/22 08:46 05/20/22 09:27 Temperature Temperature Source Pulse Rate 84 62 Respiratory Rate 22 H 15 Blood Pressure 147/85 H 124/77 H Blood Pressure Mean 105 Pulse Ox 99 98 Oxygen Delivery Method Room Air MDM <Dr. Sonny Russo MD - Last Filed: 05/21/22 01:03> [facility] Narrative Medical decision making narrative: Procedure: Closure of laceration: I cleansed and scrubbed her scalp. There was a stellate type laceration. This was scrubbed and irrigated. I anesthetized it with 6 cc of 1% lidocaine with epinephrine locally with good anesthesia. I then copiously irrigated and scrubbed the whole area. There was some fatty tissue that was already out of the wound. No modification of the wound had to be done. No step-off is felt. No active bleeding. Total length of 6-1/2 cm. This laceration had 3 branches. The center had to be closed with a single 3-0 Ethilon stitch. 1 portion of the laceration was closed with 1 staple, one portion with 2 seb, one portion with 4 seb. Patient tolerated this well. We are pending results of labs and CT at this time. Patient is back to normal. I will get her dose of phenobarb and Dilantin as she has missed. Lab Data Attestation: I reviewed the patient's lab results. Labs: Laboratory Results - last 24 hr 05/20/22 05/20/22 05/20/22 07:05 07:05 07:05 WBC 6.4 RBC 4.27 Hgb 13.3 Hct 40.1 MCV 93.9 MCH 31.1 MCHC 33.2 RDW Std Deviation 45.2 H RDW Coeff of Ketan 13.1 Plt Count 215 MPV 10.0 Immature Gran % (Auto) 0.300 Neut % (Auto) 63.2 Lymph % (Auto) 24.4 Stanly % (Auto) 10.2 H Eos % (Auto) 1.9 Baso % (Auto) 0.0 Absolute Neuts (auto) 4.1 Absolute Lymphs (auto) 1.57 Nucleated RBC % 0 Sodium 140 Potassium 4.0 Chloride 102 Carbon Dioxide 32.0 Anion Gap 6 BUN 18 Creatinine 0.65 Estim Creat Clear Calc 99.53 Est GFR (MDRD) Af Amer 119 Est GFR (MDRD) Non-Af 99 BUN/Creatinine Ratio 27.7 H Glucose 188 H Calcium 9.1 Phenytoin 6.1 L Phenobarbital 29.9 Radiography Diagnostic Testing: Clinical Impression(s) from Imaging Studies Brain CT 05/20/22 06:26 IMPRESSION: Scalp hematoma overlying the left posterior parietal occipital bone with evidence of metallic sutures. Mild cerebral atrophy. Electronically Signed: Markie Okeefe MD at 8:36 EDT , Cervical Spine CT 05/20/22 08:03 IMPRESSION: Mild degenerative changes, as described above. Electronically Signed: Markie Okeefe MD at 8:37 EDT , <Dr. Angélica Parra, DO - Last Filed: 05/20/22 09:08> [facility] Narrative Medical decision making narrative: Procedure: Closure of laceration: I cleansed and scrubbed her scalp. There was a stellate type laceration. This was scrubbed and irrigated. I anesthetized it with 6 cc of 1% lidocaine with epinephrine locally with good anesthesia. I then copiously irrigated and scrubbed the whole area. There was some fatty tissue that was already out of the wound. No modification of the wound had to be done. No step-off is felt. No active bleeding. Total length of 6-1/2 cm. This laceration had 3 branches. The center had to be closed with a single 3-0 Ethilon stitch. 1 portion of the laceration was closed with 1 staple, one portion with 2 seb, one portion with 4 seb. Patient tolerated this well. We are pending results of labs and CT at this time. Patient is back to normal. I will get her dose of phenobarb and Dilantin as she has missed. Patient signed out to me pending CT results. CT of the head and C-spine do not show any acute intracranial process or fracture. Patient will take an extra dose of her medication when she goes home. She is discharged home. She is agreeable with this plan of care. Lab Data Labs: Laboratory Results - last 24 hr 05/20/22 05/20/22 05/20/22 07:05 07:05 07:05 WBC 6.4 RBC 4.27 Hgb 13.3 Hct 40.1 MCV 93.9 MCH 31.1 MCHC 33.2 RDW Std Deviation 45.2 H RDW Coeff of Ketan 13.1 Plt Count 215 MPV 10.0 Immature Gran % (Auto) 0.300 Neut % (Auto) 63.2 Lymph % (Auto) 24.4 Stanly % (Auto) 10.2 H Eos % (Auto) 1.9 Baso % (Auto) 0.0 Absolute Neuts (auto) 4.1 Absolute Lymphs (auto) 1.57 Nucleated RBC % 0 Sodium 140 Potassium 4.0 Chloride 102 Carbon Dioxide 32.0 Anion Gap 6 BUN 18 Creatinine 0.65 Estim Creat Clear Calc 99.53 Est GFR (MDRD) Af Amer 119 Est GFR (MDRD) Non-Af 99 BUN/Creatinine Ratio 27.7 H Glucose 188 H Calcium 9.1 Phenytoin 6.1 L Phenobarbital 29.9 Radiography Diagnostic Testing: Clinical Impression(s) from Imaging Studies Brain CT 05/20/22 06:26 IMPRESSION: Scalp hematoma overlying the left posterior parietal occipital bone with evidence of metallic sutures. Mild cerebral atrophy. Electronically Signed: Markie Okeefe MD at 8:36 EDT , Cervical Spine CT 05/20/22 08:03 IMPRESSION: Mild degenerative changes, as described above. Electronically Signed: Markie Okeefe MD at 8:37 EDT , Discharge Plan Triage Chief Complaint: Seizure ED Provider: Sonny Russo Dx/Rx/DC Orders Clinical Impression: Seizure, Scalp laceration, Noncompliance with medication regimen Instructions: ED Laceration: All Closures, ED Seizure, Recurrent (Adult) Prescriptions: No Action phenobarbital 97.2 MG tablet 97.2 mg PO BID phenytoin sodium extended 100 MG capsule 200 mg PO BID hydrochlorothiazide 25 MG tablet 25 mg PO DAILY Omeprazole [Prilosec] 40 MG capsule 40 mg PO DAILY amlodipine 5 MG tablet 5 mg PO DAILY ciprofloxacin HCl [Cipro] 500 mg tablet 500 mg PO BID 7 Days Qty: 14 0RF phenazopyridine [Pyridium] 200 mg tablet 200 mg PO TID 2 Days Qty: 6 0RF Primary Care Provider: Sarah Fraser Referrals: Sarah Fraser MD [Primary Care Provider] - 3-5 Days Activity Restrictions/Additional Instructions: Take your normal morning seizure medications when you get home and then go back to your normal seizure medication regiment. Seb should be removed in 10 days. Disposition Disposition: Home, Self Care Discharge Date/Time: 05/20/22 09:28
[2022-05-20 07:09] VITALS: BP 136/88; PULSE 98; RESP 18; O2SAT 98
[2022-05-20 07:16] LABS: Absolute Lymphocyte Count 1.57 X10^3/uL (0.83-4.51); Absolute Neutrophil Count 4.1 X10^3/uL (2.0-7.7); Eosinophil# 0.12 X10^3/uL; Eosinophils% 1.9 % (0-5); Hematocrit 40.1 % (37-47); Hemoglobin 13.3 g/dL (12.0-15.0); Lymphocyte # 1.57 X10^3/ul (0.83-4.51); Lymphocyte % 24.4 % (19-41); Mean Corp Hgb Conc 33.2 g/dL (32-36); Mean Corpuscular Hgb 31.1 pg (27.0-32.0); Mean Corpuscular Volume 93.9 fL (81-99); Monocyte# 0.66 X10^3/uL; Monocyte% 10.2 % (0-10); NRBC Flagged by Analyzer 0 % (0-5); Neutrophil # 4.07 X10^3/uL (2.7-7.7); Neutrophil % 63.2 % (47-70); Platelet Count 215 K/mm3 (150-450); RBC Distribution Width CV 13.1 % (11.6-14.6); RBC Distribution Width SD 45.2 fl (35.1-43.9); Red Blood Count 4.27 M/mm3 (4.2-5.4); White Blood Count 6.4 K/mm3 (4.4-11.0)
[2022-05-20 07:19] VITALS: RESP 74
[2022-05-20 07:32] LABS: Anion Gap 6 (5-15); BUN 18 mg/dL (7-18); BUN/Creat Ratio 27.7 RATIO (10-20); Calcium,Total 9.1 mg/dL (8.5-10.1); Chloride 102 mmol/L (98-107); Creatinine, Serum 0.65 mg/dL (0.55-1.02); EST Glomerular Filtration Rate 99 mL/min (>60); Est Glom Filt Rate - Afr Amer 119 mL/min (>60); Estimated Creatinine Clearance 99.53 ml/min; Glucose 188 mg/dL (74-106); Sodium Level 140 mmol/L (136-145)
[2022-05-20] MEDS: Lidocaine 1% /Epi 1:100 (20ml) 20 ML Vial 10 ML INFILT (07:40)
[2022-05-20 07:56] LABS: Phenytoin (Dilantin) Level 6.1 mL (10.0-20.0)
--- NOTE | 2022-05-20 08:03 | CT_ITS ---
STUDY: CT CERVICAL SPINE WITHOUT CONTRAST REASON FOR EXAM: Female, 61 years old. Trauma-SEIZURE HIT HEAD RADIATION DOSAGE (If Supplied By Facility): CTDIvol = ( 19.87 ) mGy, DLP = ( 432.99 ) mGycm TECHNIQUE: High resolution transaxial imaging was performed without contrast material. Sagittal and coronal images were reconstructed. Individualized dose optimization techniques were used for this CT. COMPARISON: None FINDINGS: Normal craniovertebral junction. Normal anterior atlantoaxial articulation. Normal odontoid process. There is straightening of the normal cervical lordosis. Normal vertebral bodies and posterior osseous elements. C2-3: Normal endplates. Normal disc height and morphology. Normal central canal and intervertebral neuroforamina. C3-4: Normal endplates. Normal disc height and morphology. Normal central canal and intervertebral neuroforamina. C4-5: Normal endplates. Normal disc height and morphology. Normal central canal and intervertebral neuroforamina. C5-6: Moderate degree of disc space narrowing. Spondylosis. No significant stenosis seen. C6-7: Normal endplates. Normal disc height and morphology. Normal central canal and intervertebral neuroforamina. C7-T1: Normal endplates. Normal disc height and morphology. Normal central canal and intervertebral neuroforamina. Normal visualized soft tissue structures. CT/Spine Cervical without Contras IMPRESSION: Mild degenerative changes, as described above. Electronically Signed: Markie Okeefe MD at 8:37 EDT ,
[2022-05-20] MEDS: Phenytoin Na 100 MG Capsule 200 MG PO (08:42)
[2022-05-20] MEDS: Phenobarbital 32.4 MG Tablet 97.2 MG PO (08:43)
[2022-05-20 08:44] VITALS: PULSE 84; RESP 22; O2SAT 99
[2022-05-20 08:46] VITALS: BP 147/85
[2022-05-20 09:27] VITALS: BP 124/77; PULSE 62; RESP 15; O2SAT 98
== END 2022-05-20 09:28 | disposition home or self-care (01) ==
PROVIDERS: Emergency Provider Emergency Medicine; PCP Internal Medicine; Visit Provider Emergency Medicine
DX: R56.9 Unspecified convulsions (principal); S01.01XA Laceration without foreign body of scalp, initial encounter; Z91.14 Patient's other noncompliance with medication regimen; X58.XXXA Exposure to other specified factors, initial encounter
CPT/HCPCS: 70450; 72125; 80048; 80184; 80185; 85025; 96360; 99285; A4216

== ENCOUNTER 2023-01-24 22:23 | Emergency (ER) | payer OTHER, SELFPAY ==
[2023-01-24 22:23] VITALS: BP 123/89; PULSE 73; RESP 15; TEMP 36.9; O2SAT 100; BMI 31.7
--- NOTE | 2023-01-24 22:35 | RAD_ITS ---
EXAM: XR RIGHT WRIST COMPLETE, 3 OR MORE VIEWS CLINICAL INDICATION: INJURY TECHNIQUE: Frontal, lateral and oblique views of the right wrist. This report was created using [employer] report generation technology. COMPARISON: None. FINDINGS: BONES/JOINTS: Unremarkable. No acute fracture. No subluxation. Normal alignment. Preservation of the joint space. No sclerotic or destructive changes observed. SOFT TISSUES: Unremarkable. No soft tissue swelling or gas. No radiopaque foreign body. RAD/Wrist min 3 Views IMPRESSION: Negative right wrist x-rays. Electronically Signed: Billie Grewal MD at 23:19 EDT ,
--- NOTE | 2023-01-25 01:19 | EDS_ITS ---
HPI History of Present Illness Chief Complaint: Upper Extremity Injury Narrative Narrative: Patient is a [id number] 62-year-old female. She states she was at work this evening when she tripped and fell landing on her right arm. She denies striking her head or any loss of consciousness. She states she developed swelling to the right wrist following injury and has had difficulty moving it and therefore has concern for fracture and was sent in for evaluation. [facility] Medical History Encounter for screening for COVID-19 GERD (gastroesophageal reflux disease) High cholesterol Hypertension Seizure Home Medications hydrochlorothiazide 25 mg tablet 25 mg PO DAILY 03/26/14 [History Last Taken 03/04/19] phenobarbital 97.2 mg tablet 97.2 mg PO BID 03/26/14 [History Last Taken 03/04/19] phenytoin sodium extended 100 mg capsule 200 mg PO BID 03/26/14 [History Last Taken 03/04/19] amlodipine 5 mg tablet 5 mg PO DAILY 07/22/16 [History Last Taken 03/04/19] Allergy/AdvReac Type Severity Reaction Status Date / Time ibuprofen Allergy Swelling Verified 01/24/23 22:27 Penicillins Allergy Angioedema Verified 01/24/23 22:27 sulfamethoxazole Allergy Hives Verified 01/24/23 22:27 [From Septra] trimethoprim [From Julra] Allergy Hives Verified 01/24/23 22:27 Social History household members: none Smoking Status: Never smoker substance use type: does not use ROS ROS ED Constitutional Constitutional ED: Denies chills or fever(s) Eyes Eyes: Denies change in vision ENT ENT ED: Denies sore throat Cardiovascular Cardiovascular: Denies chest pain Respiratory/Chest Respiratory/Chest: Denies cough or dyspnea Gastrointestinal Gastrointestinal: Denies abdominal pain, diarrhea, nausea or vomiting Genitourinary Genitourinary ED: Denies dysuria Musculoskeletal Musculoskeletal: Reports other Details: Positive right wrist pain ; Denies back pain or neck pain Integumentary Denies Abrasions or rash Neurologic Neurologic: Denies headache(s) or paresthesias Hematologic/Lymphatic Hematologic/Lymphatic: Denies easy bleeding or easy bruising EXAM Physical Exam Const Vital Signs: 01/24/23 22:23 Temperature 98.5 F Temperature Source Temporal Pulse Rate 73 Respiratory Rate 15 Blood Pressure 123/89 H Blood Pressure Mean 100 Pulse Ox 100 Oxygen Delivery Method Room Air Positive well nourished and well developed General Appearance ED: well developed HEENT HEENT Narrative: Normocephalic atraumatic Eyes PERRL and EOMs intact bilaterally Neck full ROM and supple Resp normal respiratory effort and clear to auscultation bilaterally Cardio regular rate and regular rhythm Extremity Extremity Narrative: Right upper extremity is neurovascular intact; AIN/PIN are intact and normal. Active range of motion is decreased secondary to pain. There is mild soft tissue swelling along the dorsal aspect of the distal right radial. No obvious bony deformity or joint effusion. There is mild pain with palpation in the anatomical snuffbox. No ligamentous or tendon laxity noted. Remainder the exam is normal Neuro oriented x3, CN's II-XII intact bilaterally and no sensory deficits noted Sensorium / Orientation: alert Psych mental status grossly normal Skin no rashes or lesions noted MDM MDM MDM Narrative Medical decision making narrative: Patient presented to the ER with report of right wrist pain that happened after mechanical fall. Therefore there is no need for cardiac or syncope work-up and she denied any history of bleeding disorder or blood thinner use so there is no need for head CT. Differential includes fracture versus is ligamentous injury or tendon injury and secondary to this an x-ray was obtained. X-ray revealed no acute fracture or dislocation and by exam there is no signs of ligamentous or tendon laxity/injury. With pain in the anatomical snuffbox there is concern for scaphoid injury and therefore to be placed in a thumb spica splint for stabilization. However at this time she is closed and neurovascularly intact and does not have any obvious fracture on x-ray so after stabilization she is otherwise safe for discharge with outpatient follow-up. History & Record Review Discussion w/independent historian: Patient Radiography Diagnostic Testing: Clinical Impression(s) from Imaging Studies Wrist X-Ray 01/24/23 22:35 IMPRESSION: Negative right wrist x-rays. Electronically Signed: Billie Grewal MD at 23:19 EDT , X-ray of the right wrist as interpreted by the emergency medicine physician reveals no acute fracture dislocation or foreign body Discharge Plan Triage Chief Complaint: Upper Extremity Injury ED Provider: Kb Fine Dx/Rx/DC Orders Clinical Impression: Contusion of right wrist, initial encounter, Right wrist sprain Instructions: Bone Contusion, ED Wrist Sprain Prescriptions: No Action phenobarbital 97.2 MG tablet 97.2 mg PO BID phenytoin sodium extended 100 MG capsule 200 mg PO BID hydrochlorothiazide 25 MG tablet 25 mg PO DAILY amlodipine 5 MG tablet 5 mg PO DAILY Primary Care Provider: Sarah Fraser Referrals: Sarah Fraser MD [Primary Care Provider] - Activity Restrictions/Additional Instructions: Your x-ray did not show any fracture or dislocation indicating you have a bone bruise and wrist sprain. Wear the brace to help stabilize the area and reduce pain. Continue to ice the area as well to help reduce pain and speed healing. If you are not having improvement to your symptoms after 5 to 7 days return to the ER follow-up with Workmen's Comp. to discuss need for repeat imaging studies Disposition Disposition: Home, Self Care Discharge Date/Time: 01/25/23 02:15
== END 2023-01-25 02:15 | disposition home or self-care (01) ==
PROVIDERS: Emergency Provider Emergency Medicine; PCP Internal Medicine; Visit Provider Emergency Medicine
DX: S63.591A Other specified sprain of right wrist, initial encounter (principal); S60.211A Contusion of right wrist, initial encounter; W01.0XXA Fall on same level from slipping, tripping and stumbling without subsequent striking against object, initial encounter; Y99.0 Civilian activity done for income or pay; I10 Essential (primary) hypertension; Z79.899 Other long term (current) drug therapy
CPT/HCPCS: 73110; 99283; A4216

== ENCOUNTER 2023-04-29 13:15 | Emergency (ER) | payer SELFPAY ==
[2023-04-29 13:16] VITALS: BP 130/98; PULSE 77; RESP 15; TEMP 35.9; O2SAT 96; BMI 31.9
--- NOTE | 2023-04-29 13:32 | EX.ED.DYSGE1 ---
HPI History of Present Illness Chief Complaint: Seizure Informant: patient and EMS Narrative Narrative: Brought in by EMS from home daughter called for seizure. History of grand mal seizures for years. Patient states did not feel it, however she is laying in bed. States she was confused. She is feeling back to her normal self. No cough or urinary symptoms. Blood glucose 198 she reports history of diabetes. Denies urinary symptoms denies alcohol or illicit drug use. She is on phenobarbital and Dilantin, however she states she ran out of her Dilantin 2 weeks ago. Cannot recall her last breakthrough seizure. Denies any sore tongue any incontinence of urine or stools. Prior similar symptoms: Yes [facility] Medical History Encounter for screening for COVID-19 GERD (gastroesophageal reflux disease) High cholesterol Hypertension Seizure Home Medications hydrochlorothiazide 25 mg tablet 25 mg PO DAILY 03/26/14 [History Last Taken 03/04/19] phenobarbital 97.2 mg tablet 97.2 mg PO BID 03/26/14 [History Last Taken 03/04/19] phenytoin sodium extended 100 mg capsule 200 mg PO BID 03/26/14 [History Last Taken 03/04/19] amlodipine 5 mg tablet 5 mg PO DAILY 07/22/16 [History Last Taken 03/04/19] phenytoin sodium extended 200 mg capsule 200 mg PO BID #60 caps 04/29/23 [Rx Last Taken Unknown] Allergy/AdvReac Type Severity Reaction Status Date / Time ibuprofen Allergy Swelling Verified 04/29/23 13:15 Penicillins Allergy Angioedema Verified 04/29/23 13:15 sulfamethoxazole Allergy Hives Verified 04/29/23 13:15 [From ] trimethoprim [From ] Allergy Hives Verified 04/29/23 13:15 Social History household members: none Smoking Status: Never smoker substance use type: does not use ROS ROS ED Constitutional Constitutional ED: Denies chills, fever(s) or sweats Eyes Eyes: Denies change in vision ENT ENT ED: Denies dysphagia or sore throat Cardiovascular Cardiovascular: Denies chest pain, leg edema, palpitations or racing heartbeat Respiratory/Chest Respiratory/Chest: Denies cough, dyspnea or dyspnea on exertion Gastrointestinal Gastrointestinal: Denies abdominal pain, diarrhea, nausea or vomiting Genitourinary Genitourinary ED: Denies dysuria, hematuria or urinary frequency Musculoskeletal Musculoskeletal: Denies back pain, extremity pain or neck pain Integumentary Denies rash or wounds Neurologic Neurologic: Reports other Details: Seizure ; Denies headache(s), paresthesias or weakness EXAM Physical Exam Const Vital Signs: 04/29/23 13:16 04/29/23 14:47 Temperature 96.6 F L Temperature Source Temporal Pulse Rate 77 69 Respiratory Rate 15 16 Blood Pressure 130/98 H 146/70 H Blood Pressure Mean 108 95 Pulse Ox 96 97 Oxygen Delivery Method Room Air Room Air Positive well nourished and well developed General Appearance ED: well developed and NAD HEENT Reports moist mucous membranes HEENT Narrative: No tongue abrasion or lacerations normocephalic and atraumatic Eyes PERRL, EOMs intact bilaterally and conjunctivae normal General Eye ED: Yes normal appearance of both eyes Neck no lymphadenopathy and supple General: Negative for tenderness Chest Wall Chest: Negative for tenderness Resp normal respiratory effort and normal air movement Effort and Inspection: symmetric chest movement; Negative for respiratory distress Cardio regular rate, regular rhythm and no murmurs Peripheral Pulses: pulses 2+ throughout GI normal to inspection, nondistended, normoactive bowel sounds and non-tender Palpation: Negative for guarding or rebound tenderness present Back/Spine no CVA tenderness and no thoracic nor lumbar tenderness Extremity normal to inspection General Extremety ED: Negative for edema or tenderness General Extremity: Negative for edema Neuro oriented x3, CN's II-XII intact bilaterally and no sensory deficits noted Sensorium / Orientation: awake and alert Skin no rashes or lesions noted and no wounds MDM MDM MDM Narrative Medical decision making narrative: Interventions / MDM: Differential diagnosis: Breakthrough seizure, medication noncompliance Diagnosis considered but do not suspect: N/A My EKG interpretation: N/A Imaging independently reviewed and interpreted by myself: N/A External documents reviewed: N/A Test considered but not ordered:N/A ED course: Patient back to baseline I did check labs stable electrolytes, phenytoin was subtherapeutic consistent with her history of running on her medications. Patient was loaded with Dilantin in the ED. Prescription for 1 month supply sent to her pharmacy she states she has phenobarbital at home. Her PCP writes her medications. She will follow-up for continued refills. All questions were answered. Re-evaluation: stable Disposition discussed with patient/family/significant other: Patient Case discussed with consulting clinician: N/A This note was generated with [employer] dictation software. It may contain incorrect words, spelling, and punctuation that were not noted in checking the note before signing. Lab Data Attestation: I reviewed the patient's lab results. Labs: Laboratory Results - last 24 hr 04/29/23 13:20 WBC 4.8 RBC 4.42 Hgb 13.6 Hct 40.4 MCV 91.4 MCH 30.8 MCHC 33.7 RDW Std Deviation 42.5 RDW Coeff of Ketan 12.9 Plt Count 203 MPV 10.4 Immature Gran % (Auto) 0.200 Neut % (Auto) 55.0 Lymph % (Auto) 31.9 [place] % (Auto) 10.6 H Eos % (Auto) 2.3 Baso % (Auto) 0.0 Absolute Neuts (auto) 2.6 Absolute Lymphs (auto) 1.53 Nucleated RBC % 0 Sodium 139 Potassium 3.4 L Chloride 106 Carbon Dioxide 27.0 Anion Gap 6 BUN 20 H Creatinine 0.70 Estim Creat Clear Calc 88.20 Est GFR (MDRD) Af Amer 108 Est GFR (MDRD) Non-Af 90 BUN/Creatinine Ratio 28.4 H Glucose 185 H Calcium 8.8 Phenytoin 0.8 L Phenobarbital 33.7 Discharge Plan Triage Chief Complaint: Seizure ED Provider: Clement Alvarez Dx/Rx/DC Orders Clinical Impression: Breakthrough seizure, Has run out of medications, History of epilepsy Instructions: ED Seizure, Recurrent (Adult) Prescriptions: New phenytoin sodium extended 200 mg capsule 200 mg PO BID Qty: 60 0RF No Action phenobarbital 97.2 MG tablet 97.2 mg PO BID phenytoin sodium extended 100 MG capsule 200 mg PO BID hydrochlorothiazide 25 MG tablet 25 mg PO DAILY amlodipine 5 MG tablet 5 mg PO DAILY Primary Care Provider: Sarah Fraser Referrals: Sarah Farser MD [Primary Care Provider] - 1 Week Activity Restrictions/Additional Instructions: Month supply of your Dilantin was sent to your pharmacy. Continue phenobarbital. Follow-up with your doctor for continued refills. Disposition Disposition: Home, Self Care
[2023-04-29 13:50] LABS: Absolute Lymphocyte Count 1.53 X10^3/uL (0.83-4.51); Absolute Neutrophil Count 2.6 X10^3/uL (2.0-7.7); Eosinophil# 0.11 X10^3/uL; Eosinophils% 2.3 % (0-5); Hematocrit 40.4 % (37-47); Hemoglobin 13.6 g/dL (12.0-15.0); Lymphocyte # 1.53 X10^3/ul (0.83-4.51); Lymphocyte % 31.9 % (19-41); Mean Corp Hgb Conc 33.7 g/dL (32-36); Mean Corpuscular Hgb 30.8 pg (27.0-32.0); Mean Corpuscular Volume 91.4 fL (81-99); Mean Platelet Vol. 10.4 fl (6.2-12.0); Monocyte# 0.51 X10^3/uL; Monocyte% 10.6 % (0-10); NRBC Flagged by Analyzer 0 % (0-5); Neutrophil # 2.63 X10^3/uL (2.7-7.7); Platelet Count 203 K/mm3 (150-450); RBC Distribution Width CV 12.9 % (11.6-14.6); RBC Distribution Width SD 42.5 fl (35.1-43.9); Red Blood Count 4.42 M/mm3 (4.2-5.4); White Blood Count 4.8 K/mm3 (4.4-11.0)
[2023-04-29 14:07] LABS: Anion Gap 6 (5-15); BUN 20 mg/dL (7-18); BUN/Creat Ratio 28.4 RATIO (10-20); Calcium,Total 8.8 mg/dL (8.5-10.1); Chloride 106 mmol/L (98-107); EST Glomerular Filtration Rate 90 mL/min (>60); Est Glom Filt Rate - Afr Amer 108 mL/min (>60); Glucose 185 mg/dL (74-106); Potassium 3.4 mmol/L (3.5-5.1); Sodium Level 139 mmol/L (136-145)
[2023-04-29 14:12] LABS: Phenytoin (Dilantin) Level 0.8 mL (10.0-20.0)
[2023-04-29 14:47] VITALS: BP 146/70; PULSE 69; RESP 16; O2SAT 97
--- NOTE | 2023-04-29 15:58 | ED.RN ---
THIS RN WENT TO DISCONTINUE IV MEDS. PT IS TEARFUL AND STATES SHE DOESN'T FEEL RIGHT. VITALS OBTAINED. WNL. THIS RN TO NOTIFY
[2023-04-29 16:00] VITALS: BP 139/90; PULSE 72; RESP 18; O2SAT 96
[2023-04-29] MEDS: Acetaminophen 500 MG Tablet 1000 MG PO (16:45)
[2023-04-29] MEDS: 0.9% Normal Saline 1,000 ML 999 ML IV (16:45)
[2023-04-29 18:02] VITALS: BP 135/87; PULSE 76; RESP 16; O2SAT 99
== END 2023-04-29 18:14 | disposition home or self-care (01) ==
PROVIDERS: Emergency Provider Emergency Medicine; PCP Internal Medicine; Visit Provider Emergency Medicine
DX: R56.9 Unspecified convulsions (principal)
CPT/HCPCS: 80048; 80184; 80185; 85025; 96365; 99285; J7030; A4216

== ENCOUNTER 2023-12-05 12:52 | Inpatient (IN) | payer MEDICAID, SELFPAY ==
[2023-12-05 12:53] VITALS: BP 131/87; PULSE 88; RESP 16; TEMP 36.6; O2SAT 98; BMI 30.2
--- NOTE | 2023-12-05 13:06 | EDS_ITS ---
HPI History of Present Illness Chief Complaint: General Illness Detail of Chief Complaint: Not feeling well Informant: patient Narrative Narrative: Patient presents emergency department complaint not feeling well for last 2 days. Patient states that she has foul taste in her mouth and is wondering if her blood sugar is elevated. Patient also developed a rash on her vagina and has been using an antifungal to the area. No history of herpes or other sexually transmitted diseases. She does get yeast infections occasionally. Patient has not had any adjustments in her medications recently. She has been compliant with her phenytoin and phenobarbital. She denies cough or shortness of breath. She denies chest pain or abdominal pain. [facility] Medical History Encounter for screening for COVID-19 GERD (gastroesophageal reflux disease) High cholesterol Hypertension Seizure Home Medications hydrochlorothiazide 25 mg tablet 25 mg PO DAILY 03/26/14 [History Last Taken 03/04/19] phenobarbital 97.2 mg tablet 97.2 mg PO BID 03/26/14 [History Last Taken 02/17] phenytoin sodium extended 100 mg capsule 200 mg PO BID 03/26/14 [History Last Taken 03/04/19] amlodipine 5 mg tablet 5 mg PO DAILY 07/22/16 [History Last Taken 03/04/19] phenytoin sodium extended 200 mg capsule 200 mg PO BID #60 caps 04/29/23 [Rx Last Taken Unknown] Allergy/AdvReac Type Severity Reaction Status Date / Time ibuprofen Allergy Swelling Verified 12/05/23 12:55 Penicillins Allergy Angioedema Verified 12/05/23 12:55 sulfamethoxazole Allergy Hives Verified 12/05/23 12:55 [From ] trimethoprim [From ] Allergy Hives Verified 12/05/23 12:55 Social History household members: none Smoking Status: Never smoker substance use type: does not use ROS ROS ED Review of Systems ROS Unobtainable: other Constitutional Constitutional ED: Reports lethargy; Denies chills, fever(s), sweats or weight loss Eyes Eyes: Denies blurry vision, change in vision or diplopia ENT ENT ED: Denies rhinorrhea or sore throat Cardiovascular Cardiovascular: Denies chest pain, orthopnea or racing heartbeat Respiratory/Chest Respiratory/Chest: Denies cough, dyspnea, dyspnea on exertion, orthopnea or sputum Gastrointestinal Gastrointestinal: Denies abdominal pain, diarrhea, nausea or vomiting Genitourinary Genitourinary ED: Reports other Details: Vaginal rash ; Denies dysuria, hematuria or urinary frequency Musculoskeletal Musculoskeletal: Denies arthralgias, back pain, myalgias or neck pain Integumentary Denies abscess, Abrasions or rash Neurologic Neurologic: Denies headache(s) or weakness Psychiatric Psychiatric: Denies anxiety, depression or suicidal thoughts Endocrine Endocrinology: Denies polydipsia, polyphagia or polyuria Hematologic/Lymphatic Hematologic/Lymphatic: Denies easy bleeding, easy bruising or lymphadenopathy Allergic/Immunologic Allergic/Immunologic ED: Denies mouth swelling, tongue swelling or urticaria EXAM Physical Exam Const Vital Signs: 12/05/23 12:53 Temperature 98 F Temperature Source Temporal Pulse Rate 88 Respiratory Rate 16 Blood Pressure 131/87 H Blood Pressure Mean 101 Pulse Ox 98 Oxygen Delivery Method Room Air Positive well nourished and well developed General Appearance ED: well developed and NAD HEENT Reports TM's clear and dry mucous membranes HEENT Narrative: No lesions noted to the oral or buccal mucosa. normocephalic and atraumatic; Negative for trauma or tenderness Tympanic Membrane ED: Yes TM's clear Mouth ED: Yes dry mucous membranes Mouth: dry mucous membranes Eyes PERRL and EOMs intact bilaterally General Eye ED: Negative for pale conjunctiva or scleral icterus Neck no lymphadenopathy, supple and no JVD General: Negative for tenderness Chest Wall inspection of chest normal and palpation of chest normal Chest: Negative for tenderness Resp normal respiratory effort and clear to auscultation bilaterally Effort and Inspection: Negative for respiratory distress or pain with movement Auscultation: Negative for rhonchi, wheezes or diminished lung sounds Cardio regular rate, regular rhythm, S1 normal heart sound, S2 normal heart sound and no murmurs Peripheral Pulses: pulses 2+ throughout GI normal to inspection, nondistended, normoactive bowel sounds, soft to palpation, non-tender, non-distended and no masses Back/Spine no CVA tenderness and no thoracic nor lumbar tenderness Extremity normal to inspection General Extremety ED: Negative for edema General Extremity: Negative for edema Neuro oriented x3, CN's II-XII intact bilaterally, no sensory deficits noted and gait normal Sensorium / Orientation: awake, alert, oriented to person, oriented to place and oriented to time Motor Exam: strength 5/5 throughout and strength abnormal Psych mental status grossly normal Skin Skin Narrative: Ulcerated rash involving the labia majora and labia minora. No significant vaginal discharge noted. Discharge Plan Triage Chief Complaint: General Illness ED Provider: Wing John Dx/Rx/DC Orders Prescriptions: No Action phenobarbital 97.2 MG tablet 97.2 mg PO BID phenytoin sodium extended 100 MG capsule 200 mg PO BID hydrochlorothiazide 25 MG tablet 25 mg PO DAILY amlodipine 5 MG tablet 5 mg PO DAILY phenytoin sodium extended 200 mg capsule 200 mg PO BID Qty: 60 0RF Primary Care Provider: Sarah Fraser Referrals: Sarah Fraser MD [Primary Care Provider] -
[2023-12-05] MEDS: 0.9% Normal Saline (1000mL) 1,000 ML 150 ML IV ×2 (13:30→21:25)
[2023-12-05 13:31] LABS: Absolute Lymphocyte Count 1.42 X10^3/uL (0.83-4.51); Basophil# 0.01 X10^3/uL; Basophil% 0.1 % (0-1); Eosinophil# 0.08 X10^3/uL; Hematocrit 41.9 % (37-47); Hemoglobin 14.5 g/dL (12.0-15.0); Lymphocyte # 1.42 X10^3/ul (0.83-4.51); Lymphocyte % 17.3 % (19-41); Mean Corp Hgb Conc 34.6 g/dL (32-36); Mean Corpuscular Hgb 30.3 pg (27.0-32.0); Mean Corpuscular Volume 87.7 fL (81-99); Mean Platelet Vol. 10.5 fl (6.2-12.0); Monocyte# 0.67 X10^3/uL; Monocyte% 8.2 % (0-10); NRBC Flagged by Analyzer 0 % (0-5); Neutrophil # 6.01 X10^3/uL (2.7-7.7); Platelet Count 257 K/mm3 (150-450); RBC Distribution Width CV 12.5 % (11.6-14.6); RBC Distribution Width SD 39.8 fl (35.1-43.9); Red Blood Count 4.78 M/mm3 (4.2-5.4); White Blood Count 8.2 K/mm3 (4.4-11.0)
--- OUTSIDE RECORDS SUMMARY | 2023-12-05 13:33 | XMS RPT_ITS | CCD ---
Author Name Unknown Address [address] [place] [address] Organization [facility] Care Team Providers Care Diving Judge Name Role Phone PROVIDER, UNKNOWN Unavailable Unavailable PROVIDER, UNKNOWN Unavailable Unavailable NASIM BREWER Unavailable Unavailable Sarah Rogers MD Primary Care Provider Sarah Rogers MD Primary Care Provider Sarah Rogers MD Primary Care Provider Tila Sandoval DO Primary Care Provider KHARI MARTIN Attending Unavailable SARAH ROGERS Primary Care Unavailable Allergies Allergy Classification Reported Allergen(s) Allergy Type Date of Onset Reaction(s) Facility (20 sources) Ibuprofen Drug Allergy 07-17-20 13 Swelling, Hives [facility] Work Phone: [phone] (4 sources) Penicillins Drug Allergy 04-16-20 14 Swelling [facility] Work Phone: [phone] (20 sources) Sulfamethoxazole / Trimethoprim Drug Allergy 07-17-20 13 Rash, Hives [facility] Work Phone: [phone] (14 sources) Penicillins Drug Allergy 04-16-20 14 Swelling [facility] Work Phone: [phone] (2 sources) Penicillins Drug Allergy 07-17-20 13 Hives, Swelling [facility] (2 sources) Sulfamethoxazole Allergy to substance 05-14-20 19 [employer] [facility] (2 sources) Trimethoprim Drug Allergy 05-14-20 19 [facility] Medications Current Medications Medication Drug Class(es) Dates Sig (Normalized) Sig (Original) amLODIPine 5 mg oral tablet (20 sources) Dihydropyridine Calcium Channel Rui Start: 09-21-2023 End: 11-04-2023 take 1 tablet by mouth once daily amLODIPine (Norvasc) 5 MG tablet Indications: Primary hypertension Take 1 tablet (5 mg) by mouth daily. 90 tablet 1 11/04/2023 Active Completed/Discontinued Medications Medication Drug Class(es) Dates Sig (Normalized) Sig (Original) azelastine hydrochloride 0.5 mg/ml ophthalmic solution (18 sources) Histamine-1 Receptor Antagonist Start: 07-08-2017 take 1 drop(s) into the eye(s) twice daily Azelastine HCl (OPTIVAR) 0.05 % ophthalmic solution Use 1 Drop in both eyes twice daily. 6 mL 2 07/08/2017 Active Problems Active Problems Problem Classification Problem Date Documented Da te Episodic/Chronic Diabetes mellitus without complication (8 sources) Hyperglycemia; Translations: [Hyperglycemia, unspecified] Onset: 11-04-2023 Episodic Disorders of lipid metabolism (20 sources) Hyperlipidemia, unspecified; Translations: [Hyperlipidemia] Onset: 11-09-2013 10-27-2021 Chronic Epilepsy; convulsions (9 sources) Epilepsy, unspecified, not intractable, without status epilepticus; Translations: [Epilepsy] Onset: 11-09-2013 08-15-2022 Chronic Esophageal disorders (4 sources) Gastro-esophageal reflux disease without esophagitis; Translations: [Gastro-esophageal reflux disease with esophagitis] Onset: 10-21-2017 Chronic Essential hypertension (20 sources) Essential (primary) hypertension; Translations: [Hypertensive disorder] Onset: 11-09-2013 10-27-2021 Chronic Gastrointestinal hemorrhage (18 sources) Hemorrhage of digestive system; Translations: [Chronic or unspecified gastrojejunal ulcer with hemorrhage] Onset: 04-16-2014 10-27-2021 Chronic Other aftercare (1 source) Removal of sutures done; Translations: [Encounter for removal of sutures] Episodic Other aftercare (1 source) Wound finding; Translations: [Encounter for other specified aftercare] Episodic Other aftercare (3 sources) Patient encounter status; Translations: [Other intermediate designer (current) drug therapy] Episodic Other screening for suspected conditions (not mental disorders or infectious disease) (2 sources) Encounter for screening for diseases of the blood and blood-forming organs and certain disorders involving the immune mechanism; Translations: [Encounter for screening for diseases of the blood and blood-forming organs and certain disorders involving the immune mechanism] Onset: 11-04-2023 Episodic Past or Other Problems Problem Classification Problem Date Documented Da te Episodic/Chronic Allergic reactions (6 sources) Allergy status to penicillin; Translations: [Allergy status to other drugs, medicaments and biological substances status] Onset: 10-21-2017 Episodic Disorders of teeth and jaw (3 sources) 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; Translations: [Periodontal disease, unspecified] Onset: 07-17-2013 08-15-2022 Episodic Epilepsy; convulsions (20 sources) Seizure; Translations: [Unspecified convulsions] Onset: 04-16-2014 11-11-2021 Episodic Other non-traumatic joint disorders (18 sources) Pain in left knee; Translations: [Pain in joint, lower leg] Onset: 04-23-2014 02-21-2015 Episodic Other non-traumatic joint disorders (18 sources) Shoulder pain; Translations: [Pain in unspecified shoulder] Onset: 02-19-2016 02-19-2016 Episodic Unclassified (10 sources) Family history of malignant neoplasm of digestive organs; Translations: [Family history of stroke] Onset: 10-21-2017 Episodic Urinary tract infections (4 sources) Acute cystitis with hematuria; Translations: [Urinary tract infection, site not specified] Onset: 10-21-2017 Episodic Results Test Name Value Interpretation Reference Range Facil ity Vital Signs Date Time Vital Sign Value Performing Clinician Zbigniew lity 11-04-2023 09:03-0500 Body height 175.3 cm Khari Martin PA-C Work Phone: [facility] 11-04-2023 09:03-0500 Body mass index (BMI) [Ratio] 32.49 kg/m2 Khari Martin PA-C Work Phone: [facility] 11-04-2023 09:03-0500 Body temperature 97 [degF] Khari Martin PA-C Work Phone: [facility] 11-04-2023 09:03-0500 Body weight 99.79 kg Khari Martin PA-C Work Phone: [facility] 11-04-2023 09:03-0500 Diastolic blood pressure 85 mm[Hg] Khari Martin PA-C Work Phone: [facility] 11-04-2023 09:03-0500 Heart rate 77 /min Khari Martin PA-C Work Phone: [facility] 11-04-2023 09:03-0500 SaO2% (BldA) [Mass fraction] 97 % Khari Martin PA-C Work Phone: [facility] 11-04-2023 09:03-0500 Systolic blood pressure 120 mm[Hg] Khari Martin PA-C Work Phone: [facility] 09-25-2022 15:17-0500 Body height 172.7 cm Sarah Rogers MD Work Phone: [facility] 09-25-2022 15:17-0500 Body temperature 98.4 [degF] Sarah Rogers MD Work Phone: [facility] 09-25-2022 15:17-0500 Body weight 95.71 kg Sarah Rogers MD Work Phone: [facility] 09-25-2022 15:17-0500 Diastolic blood pressure 60 mm[Hg] Sarah Rogers MD Work Phone: [facility] 09-25-2022 15:17-0500 Heart rate 83 /min Sarah Rogers MD Work Phone: [facility] 09-25-2022 15:17-0500 Respiratory rate 12 /min Sarah Rogers MD Work Phone: [facility] 09-25-2022 15:17-0500 SaO2% (BldA) [Mass fraction] 99 % Sarah Rogers MD Work Phone: [facility] 09-25-2022 15:17-0500 Systolic blood pressure 118 mm[Hg] Sarah Rogers MD Work Phone: [facility] 05-29-2022 15:27-0400 Body temperature 97.39 [degF] Truyd Yeboah ESCALATOR MECHANIC.CRYPTOGRAPHIC MACHINE OPERATOR Work Phone: [facility] 05-29-2022 15:27-0400 Body weight 95.8 kg Trudy Yeboah ESCALATOR MECHANIC.CRYPTOGRAPHIC MACHINE OPERATOR Work Phone: [facility] 05-29-2022 15:27-0400 Diastolic blood pressure 74 mm[Hg] Trudy Yeboah ESCALATOR MECHANIC.CRYPTOGRAPHIC MACHINE OPERATOR Work Phone: [facility] 05-29-2022 15:27-0400 Heart rate 78 /min Trudy Yeboah ESCALATOR MECHANIC.CRYPTOGRAPHIC MACHINE OPERATOR Work Phone: [facility] 05-29-2022 15:27-0400 Respiratory rate 18 /min Trudy Yeboah ESCALATOR MECHANIC.CRYPTOGRAPHIC MACHINE OPERATOR Work Phone: [facility] 05-29-2022 15:27-0400 SaO2% (BldA) [Mass fraction] 97 % Trudy Yeboah ESCALATOR MECHANIC.CRYPTOGRAPHIC MACHINE OPERATOR Work Phone: [facility] 05-29-2022 15:27-0400 Systolic blood pressure 122 mm[Hg] Trudy Yeboah ESCALATOR MECHANIC.CRYPTOGRAPHIC MACHINE OPERATOR Work Phone: [facility] 04-28-2022 15:52-0400 Body height 172.7 cm Sarah Rogers MD Work Phone: [facility] 04-28-2022 15:52-0400 Body temperature 98.29 [degF] Sarah Rogers MD Work Phone: [facility] 04-28-2022 15:52-0400 Body weight 96.16 kg Sarah Rogers MD Work Phone: [facility] 04-28-2022 15:52-0400 Diastolic blood pressure 72 mm[Hg] Sarah Rogers MD Work Phone: [facility] 04-28-2022 15:52-0400 Heart rate 72 /min Sarah Rogers MD Work Phone: [facility] 04-28-2022 15:52-0400 Respiratory rate 12 /min Sarah Rogers MD Work Phone: [facility] 04-28-2022 15:52-0400 SaO2% (BldA) [Mass fraction] 97 % Sarah Rogers MD Work Phone: [facility] 04-28-2022 15:52-0400 Systolic blood pressure 130 mm[Hg] Sarah Rogers MD Work Phone: [facility] Encounters Encounter Date Encounter Type Care Provider Facility Start: 11-25-2023 Refill Khari Latif Work Phone: [facility] Procedures Date Procedure Procedure Detail Performing Clinician Start: 11-04-2023 Adult depression scr eening assessment Khari Martin PA-C Work Phone: Start: 08-07-2021 Lipid 1996 panel - S thuy or Plasma Prema Aguilar PA-C Work Phone: Start: 02-03-2021 Adult depression scr eening assessment Sarah Rogers MD Work Phone: Start: 07-13-2019 Mammography Sarah bee MD Work Phone: Start: 12-12-2012 Colonoscopy Sarah bee MD Work Phone: Plan of Treatment Date Care Activity Detail Author Start: 08-07-2026 Lipid 1996 panel - Serum or Plasma Lipid Screening [facility] Start: 08-07-2026 Lipid panel Lipid Screening [facility] Start: 08-07-2026 LIPID SCREEN LIPID SCREEN [facility] Start: 09-25-2025 DIABETES SCREEN DIABETES SCREEN [facility] Start: 09-25-2025 Diabetes Screening Diabetes Screening [facility] Start: 04-28-2025 DIABETES SCREEN DIABETES SCREEN [facility] Start: 11-04-2024 Depression Screening Depression Screening [facility] Start: 11-04-2024 Diabetes mellitus screening Diabetes Screening [facility] Start: 08-07-2024 DIABETES SCREEN DIABETES SCREEN [facility] Start: 04-16-2024 DTaP/Tdap/Td Vaccines (2 - Td or Tdap) DTaP/Tdap/Td Vaccines (2 - Td or Tdap) [facility] Start: 04-16-2024 Urine microalbumin profile [facility] Start: 01-26-2024 End: 01-26-2024 Patient encounter procedure 01/26/2024 10:20 AM EDT Office Visit [facility] [address] [place] [address] Tila Sandoval DO [address] [place] [address] [facility] Start: 11-04-2023 End: 11-02-2024 CBC W Auto Differential panel - Blood CBC auto differential Lab Routine Screening for deficiency anemia Expected: 11/04/2023 (Approximate), Expires: 11/02/2024 [facility] Immunizations Immunization Date Immunization Notes Care Provider Fa cility 12-29-2018 influenza virus vaccine, unspecified formulation Prema Aguilar PA-C Work Phone: [facility] 04-16-2014 tetanus toxoid, redu maria r diphtheria toxoid, and acellular pertussis vaccine, adsorbed Sarah Rogers MD Work Phone: [facility] Work Phone: Payers Date Payer Category Payer Unknown 2021 Unknown [id number] 2003 Medicaid [place] [employer] [place] [employer] [id number] 2003-Present [phone] [place] [id number] Medicaid [id number] 2003 Medicaid [id number] Social History Date Type Detail Facility Start: 01-27-2018 End: 09-25-2022 Tobacco smoking status NMIS Never smoked tobacco [facility] Work Phone: Start: 10-28-2021 End: 11-04-2023 Alcohol intake Current non-drinker of alcohol (finding) [facility] Start: 1960 Sex Assigned At Not on file [facility] Start: 01-03-2022 End: 09-25-2022 Exposure to SARS-CoV-2 (event) Not sure [facility] Work Phone: Start: 01-27-2018 End: 09-25-2022 Tobacco use and exposure Smokeless tobacco non-user [facility] Work Phone: Start: 09-25-2022 End: 11-04-2023 History of Social function [facility] Start: 09-25-2022 End: 11-04-2023 Tobacco use panel [facility] Adult Depression Screening Assessment 0 [facility] Has the [employer], Infectious, [employer], or water company threatened to shut off services in your home in past 12Mo No [facility] Do you belong to any clubs or organizations such as yazidi groups, unions, fraternal or athletic groups, or school groups? Yes [facility] Are you now , , , , never or living with a partner? [facility] How often to you hav e a drink containing alcohol? Monthly or less [facility] How many standard dr inks containing alcohol do you have on a typical day? 1 or 2 [facility] How often do you hav e 6 or more drinks on 1 occasion? Never [facility] Do you feel stress - tense, restless, nervous, or anxious, or unable to sleep at night because your mind is troubled all the time - these days [OSQ] Only a little [facility] (I/We) worried wheth er (my/our) food would run out before (I/we) got money to buy more. Never true [facility] Start: 11-04-2023 Alcohol Comment social rare [facility] Start: 1960 Sex Assigned At Female [facility] Start: 11-04-2023 Gender identity Identifies as female gender (finding) [facility] Start: 11-04-2023 Sexual orientation Heterosexual (finding) [facility] Clinical Notes 01-24-2022 to 11-25-2023 Telephone Encounter - Tila Sandoval DO - 11/25/2023 1:10 PM ESTTelephone Encounter - Tila Sandoval DO - 11/25/2023 1:10 PM ESTTelephone Encounter - Mary Collado - 11/25/2023 11:29 AM EST Note Date & Type Note Facility 11-25-2023 Telephone encounter Note I have never seen this patient before. [facility] Work Phone: 11-25-2023 Miscellaneous Notes I have never seen this patient before. Medication name: PHENobarbital (Luminal) 97.2 MG tablet Medication dosage: 97.2 mg (Miligrams Monthly quantity needed:60 How many day supply requestin days Medication route: oral (PO) Medication administration time(s): 2 times a day (BID) If taking medication PRN, reason for taking medication: N/A If this is a controlled substance do you receive this or any other controlled medication from any other doctor or facility: No Ordering provider: Khari Martin Date of last office visit: 11/04/2023 Date of next office visit: 01/26/2024 Date of last refill: (see medication tab): 10/26/2023 Updated/Validated preferred pharmacy: Yes Patient instructed to contact the pharmacy prior to picking up the medication: No documented in this encounter [facility] 11-25-2023 Telephone encounter Note Medication name: PHENobarbital (Luminal) 97.2 MG tablet Medication dosage: 97.2 mg (Miligrams Monthly quantity needed:60 How many day supply requestin days Medication route: oral (PO) Medication administration time(s): 2 times a day (BID) If taking medication PRN, reason for taking medication: N/A If this is a controlled substance do you receive this or any other controlled medication from any other doctor or facility: No Ordering provider: Khari Martin Date of last office visit: 11/04/2023 Date of next office visit: 01/26/2024 Date of last refill: (see medication tab): 10/26/2023 Updated/Validated preferred pharmacy: Yes Patient instructed to contact the pharmacy prior to picking up the medication: No [facility] 11-04-2023 Evaluation + Plan note Associated Problem(s): Epilepsy (HCC) - Chronic stable has been previously seen by neurology and full previous workup and continues on phenobarb and Dilantin. There is been no changes to her dosing regimen or medications we will recheck those levels today and authorize medication refills of Dilantin and phenobarbital [facility] 11-04-2023 Miscellaneous Notes Associated Problem(s): Epilepsy (HCC) - Chronic stable has been previously seen by neurology and full previous workup and continues on phenobarb and Dilantin. There is been no changes to her dosing regimen or medications we will recheck those levels today and authorize medication refills of Dilantin and phenobarbital Associated Problem(s): HTN (hypertension) - Chronic and stable patient is to continue on hydrochlorothiazide 12.5 mg daily although reportedly ran out of that and has been off it can consider discontinuing hydrochlorothiazide. - Patient is to continue amlodipine 5 mg daily. Associated Problem(s): Hyperlipidemia - Chronic and previously unstable with an LDL checked 2 years ago was 111 for now we will continue on Zocor 40 mg daily and reassess LDL level. Associated Problem(s): Hyperglycemia - Chronic and stable previous elevated sugar with family history of diabetes and patient has a personal history of elevated blood sugar and prediabetes. documented in this encounter [facility] 11-04-2023 Evaluation + Plan note Associated Problem(s): HTN (hypertension) - Chronic and stable patient is to continue on hydrochlorothiazide 12.5 mg daily although reportedly ran out of that and has been off it can consider discontinuing hydrochlorothiazide. - Patient is to continue amlodipine 5 mg daily. [facility] 11-04-2023 Evaluation + Plan note Associated Problem(s): Hyperlipidemia - Chronic and previously unstable with an LDL checked 2 years ago was 111 for now we will continue on Zocor 40 mg daily and reassess LDL level. [facility] 11-04-2023 Evaluation + Plan note Associated Problem(s): Hyperglycemia - Chronic and stable previous elevated sugar with family history of diabetes and patient has a personal history of elevated blood sugar and prediabetes. [facility] 11-04-2023 History of Present illness Narrative Images from the original note were not included. [facility] [address] [place] [address] [address] [facility] [address] Dept: [phone] Dept Loc: [phone] Visit type: New Patient Reason for Visit: New Patient (Hx seizures /High bp ) Assessment and Plan 1. Hyperglycemia Assessment & Plan: - Chronic and stable previous elevated sugar with family history of diabetes and patient has a personal history of elevated blood sugar and prediabetes. Orders: - Comprehensive metabolic panel - Hemoglobin A1c 2. Intractable epilepsy without status epilepticus, unspecified epilepsy type (HCC) Assessment & Plan: - Chronic stable has been previously seen by neurology and full previous workup and continues on phenobarb and Dilantin. There is been no changes to her dosing regimen or medications we will recheck those levels today and authorize medication refills of Dilantin and phenobarbital Orders: - Phenytoin level, total - Phenobarbital level 3. Screening for deficiency anemia - CBC auto differential 4. Primary hypertension Assessment & Plan: - Chronic and stable patient is to continue on hydrochlorothiazide 12.5 mg daily although reportedly ran out of that and has been off it can consider discontinuing hydrochlorothiazide. - Patient is to continue amlodipine 5 mg daily. Orders: - Comprehensive metabolic panel - amLODIPine (Norvasc) 5 MG tablet; Take 1 tablet (5 mg) by mouth daily., Starting [facility] 11/04/2023, Normal - hydroCHLOROthiazide (Microzide) 12.5 MG capsule; Take 1 capsule (12.5 mg) by mouth daily., Starting [facility] 11/04/2023, Normal 5. Mixed hyperlipidemia Assessment & Plan: - Chronic and previously unstable with an LDL checked 2 years ago was 111 for now we will continue on Zocor 40 mg daily and reassess LDL level. Orders: - simvastatin (Zocor) 40 MG tablet; Take 1 tablet (40 mg) by mouth Nightly., Starting [facility] 11/04/2023, Normal Follow up if symptoms worsen or fail to improve, for Next scheduled follow-up. Subjective HPI this is a 63-year-old female with underlying history of hypertension, epilepsy, 40 years, and hyperlipidemia who contacted the [facility] on 10/23 for concerns of regarding seizures and needing her medications for seizures. Patient reported that she does not have a primary care physician and needs her medications. Patient was ultimately instructed by the [facility] to seek evaluation in the emergency room. As the patient was reporting having breakthrough seizures at least 2 times that day. Review of the records does show that the patient was followed up with [facility] and she had Dilantin and phenobarb prescriptions called in on 10/25. 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 Mild arthitic complaints in shouldder s and knees but other illness issues. Otherwise patient presents the office states that she changed insurances and needs refills of her medications and continued medical care she has no acute concerns other than the arthritic pain but it is nothing new or different no breakthrough seizures no history of fever chills rigors nausea vomiting no recent illnesses cough cold or flulike symptoms. Review of Systems Constitutional: Negative for chills and fever. HENT: Negative for congestion and sore throat. Respiratory: Negative for cough and shortness of breath. Cardiovascular: Negative for chest pain. Gastrointestinal: Negative for abdominal pain, diarrhea, nausea and vomiting. Genitourinary: Negative for difficulty urinating, dysuria, frequency and urgency. Musculoskeletal: Negative for back pain. Neurological: Negative for dizziness and light-headedness. All other systems reviewed and are negative. Allergies Allergen Reactions Ibuprofen Hives and Swelling swelling Penicillins Hives and Swelling Other reaction(s): Angioedema Sulfamethoxazole Other reaction(s): Hives Trimethoprim Other reaction(s): Hives Sulfamethoxazole-Trimethoprim Hives and Rash Outpatient Medications Prior to Visit Medication Sig Dispense Refill PHENobarbital (Luminal) 97.2 MG tablet Take 1 tablet by mouth two times a day for 30 days. phenytoin ER (Dilantin) 100 MG capsule Take 2 capsules by mouth two times a day. amLODIPine (Norvasc) 5 MG tablet Take 5 mg by mouth daily. hydroCHLOROthiazide (Microzide) 12.5 MG capsule Take 12.5 mg by mouth daily. simvastatin (Zocor) 40 MG tablet Take 40 mg by mouth Nightly. omeprazole (PriLOSEC) [address] capsule Take 40 mg by mouth daily. No facility-administered medications prior to visit. Past Medical History: Diagnosis Date Epilepsy (HCC) GERD (gastroesophageal reflux disease) Hyperlipidemia Hypertension UTI (urinary tract infection) Social History Tobacco Use Smoking status: Never Smokeless tobacco: Never Substance Use Topics Alcohol use: No Comment: social rare Past Surgical History: Procedure Laterality Date DUPUYTRENS CONTRACTURE SURGERY (HISTORICAL) 09/2013 : Right KNEE ARTHROSCOPY OSTEOCHONDRAL GRAFTING (HISTORICAL) PLANTAR FASCIA SURGERY 10/2013 : Bilateral TUBAL LIGATION Family History Problem Relation Name Age of Onset Seizures Granddaughter Breast cancer Sister Stroke Father's Brother Seizures Grandson Colon cancer Father Stroke Brother Diabetes Sister Diabetes Father Migraines Daughter Thyroid disease Brother also niece (sister's daughter) Seizures Sister Outgrew seizures as child Coronary artery disease Father Also paternal uncle Arrhythmia Mother Stroke Maternal Grandmother Objective BP 120/85 (BP Location: Right arm, Patient Position: Sitting, BP Cuff Size: Large adult) Pulse 77 Temp 36.1 C (97 F) (Temporal) Ht 5' 9 (1.753 m) Wt 220 lb (99.8 kg) SpO2 97% BMI 32.49 kg/m Physical Exam Vitals reviewed. Constitutional: General: She is not in acute distress. Appearance: Normal appearance. She is not ill-appearing or toxic-appearing. HENT: Right Ear: Tympanic membrane and ear canal normal. Left Ear: Tympanic membrane and ear canal normal. Mouth/Throat: Mouth: Mucous membranes are moist. Pharynx: No oropharyngeal exudate or posterior oropharyngeal erythema. Eyes: General: No scleral icterus. Conjunctiva/sclera: Conjunctivae normal. Pupils: Pupils are equal, round, and reactive to light. Neck: Vascular: No carotid bruit. Cardiovascular: Rate and Rhythm: Normal rate and regular rhythm. Heart sounds: Normal heart sounds. No murmur heard. Pulmonary: Effort: Pulmonary effort is normal. No respiratory distress. Breath sounds: Normal breath sounds. No wheezing. Abdominal: General: Bowel sounds are normal. There is no distension. Palpations: Abdomen is soft. Tenderness: There is no abdominal tenderness. There is no guarding. Musculoskeletal: Cervical back: Normal range of motion and neck supple. No rigidity or tenderness. Right lower leg: No edema. Left lower leg: No edema. Comments: Deputren contracture left hand Lymphadenopathy: Cervical: No cervical adenopathy. Skin: General: Skin is warm and dry. Neurological: Mental Status: She is alert. Psychiatric: Mood and Affect: Mood normal. Data Reviewed and Summarized Labs: Imaging/Testing: Khari Martin PA-C 11/04/2023 Please note that portions of this note may have been completed with voice recognition software. Documentation reviewed prior to signing but minor errors in front desk associate may have occurred. documented in this encounter [facility] 10-25-[address] Fitzgerald called and stated he will send Dilantin 100 mg ER capsule and Phenobarbital 9.72 mg scripts for patient's seizures to patient's preferred pharmacy. Patient called and notified. Patient called stating she need refill of phenobarbital medication for her seizures. Patient stated she took the last dose this morning. Dr. Fitzgerald paged. documented in this encounter [facility] 10-23-2023 Telephone encounter Note S: Patient spoke with [facility] nurse regarding seizures B: Onset of symptoms/concern ongoing since 2021 A: Patient is a new patient at [facility] and has been experiencing seizures. She hasn't had a primary care doctor in while due to insurance issue. She is needing medication for her seizures. Confirmed appt 11/04/23 at 9:20am with CR Cardenas. Pt reports having breakthrough seizures time two today. R: Recommended pt go to ED for stabilization. Patient understands care advice. No further needs at this time. Patient instructed to call back with new or worsening symptoms. Reason for Disposition Second seizure occurs on the same day Protocols used: [id number] [facility] 10-23-2023 Miscellaneous Notes S: Patient spoke with [facility] nurse regarding seizures B: Onset of symptoms/concern ongoing since 2021 A: Patient is a new patient at [facility] and has been experiencing seizures. She hasn't had a primary care doctor in while due to insurance issue. She is needing medication for her seizures. Confirmed appt 11/04/23 at 9:20am with CR Cardenas. Pt reports having breakthrough seizures time two today. R: Recommended pt go to ED for stabilization. Patient understands care advice. No further needs at this time. Patient instructed to call back with new or worsening symptoms. Reason for Disposition Second seizure occurs on the same day Protocols used: [id number] documented in this encounter [facility] 09-26-2023 Miscellaneous Notes Note out of network and short term refills sent Pt's previous two referrals for financial clearance have been denied. Pt's insurance is out of network and pt will need to either find another provider who takes [facility] or change to another insurance that [facility] accepts. Pt has been told this before. Needs to be reinforced as pt is not going to be able to get medications from us because we are not able to see her in the office. It does not appear that pt has called and spoke with financial advisors even when she knows she needs to. (see previous MyChart msgs from [facility]) LM for pt to return call on her cell phone and LM on daughter's cell phone to have her mom return a call to us. OON referral was placed however last referral in Jun 2023 was denied as insurance is not in network with [facility] Called and LM for pt to return the call. Pt has 2 MyChart msgs-one from June and one from Jul where the [facility] have been trying to get ahold of her. Pt read the first msg in June but did not read the second one in July. The information is in there for pt to call them back to get FA so she can get approved and come in for an appt. Please let pt know that Prema only gave her a 30 day supply of her meds only since she needs to come in and be seen. Waiting on referral # [id number] to be authorized to schedule appt. Pt needs appt scheduled. Prema Aguilar PA-C documented in this encounter [facility] 06-18-2023 Miscellaneous Notes Spoke with the patient and her current ins is out of network and is working with [facility] to get cleared. OK, needs appt scheduled. Patient has been identified by name and date of : Yes Requested Prescriptions Pending Prescriptions Disp Refills simvastatin (ZOCOR) 40 mg tablet 90 tablet 1 Sig: Take 1 tablet by mouth daily at bedtime. amLODIPine (NORVASC) 5 mg tablet 90 tablet 1 Sig: Take 1 tablet by mouth once daily. hydroCHLOROthiazide 12.5 mg capsule 90 capsule 1 Sig: Take 1 capsule by mouth once daily. PHENobarbital 97.2 mg tablet 180 tablet 0 Sig: Take 1 tablet by mouth twice daily for 180 days. RX INSTRUCTIONS: Please send today, patient is crying on the phone. Patient aware RX will be sent to pharmacy. No need to notify patient. Althea Lynn documented in this encounter [facility] 04-25-2023 Miscellaneous Notes Patient over due for follow up. Thank you Roseanna Connor APRN.CRYPTOGRAPHIC MACHINE OPERATOR Patient has been identified by name and date of : No Patient phones for refill(s): Requested Prescriptions Pending Prescriptions Disp Refills phenytoin ER (DILANTIN) 100 mg ER capsule 360 capsule 0 Sig: Take 2 capsules by mouth twice daily. Date of last office visit in primary care: 09/25/22 Last 2 Encounter Wt Readings: Date: Wt: 09/25/2022 95.7 kg (211 lb) 05/29/2022 95.8 kg (211 lb 3.2 oz) Previous labs/tests for medication: Not applicable Please advise. Thank you. Carie Toribio LPN Patient has been identified by name and date of : Yes Last office visit in this department: 09/25/2022 RX INSTRUCTIONS: Patient aware RX will be sent to pharmacy. No need to notify patient. Patient phones requesting refills as follows: Requested Prescriptions Pending Prescriptions Disp Refills phenytoin ER (DILANTIN) 100 mg ER capsule 360 capsule 0 Sig: Take 2 capsules by mouth twice daily. Please review and advise. Jodee Lynn documented in this encounter [facility] 04-14-2023 Note Patient Outreach (IN TMMN) REENA TORRES ([id number]) 1960 F Date Time Provider Department 04/14/23 SARAH ROGERS During your visit today, we recorded the following information about you: Allergies As of Date: 04/14/2023 Noted Allergy Reaction IBUPROFEN 04/16/2014 7 - Swelling PENICILLINS 04/16/2014 7 - Swelling SEPTRA (SULFAMETHOXAZOLE-TRIMETHO* 014 2 - Rash Date Reviewed: 09/25/2022 Reviewed by: Carie Toribio LPN - Fully Assessed Visit Diagnosis:Encounter for screening mammogram for breast cancer [Z12.31] Order(s):[facility] SCREEN[facility] [[id number]] Order #: [id number] FUTURE Prescriptions as of 04/19/2023 - PHENobarbital 97.2 mg tablet Take 1 tablet by mouth twice daily for 180 days. - amLODIPine (NORVASC) 5 mg tablet Take 1 tablet by mouth once daily. - hydroCHLOROthiazide 12.5 mg capsule Take 1 capsule by mouth once daily. - omeprazole (PRILOSEC) 20 mg capsule Take 2 capsules by mouth once daily. - phenytoin ER (DILANTIN) 100 mg ER capsule Take 2 capsules by mouth twice daily. - simvastatin (ZOCOR) 40 mg tablet Take 1 tablet by mouth daily at bedtime. - naproxen (NAPROSYN) 500 mg tablet Take 1 tablet by mouth twice daily as needed (for pain/inflammation). Take with food. - Azelastine HCl (OPTIVAR) 0.05 % ophthalmic solution Use 1 Drop in both eyes twice daily. - CRANBERRY EXTRACT (CRANBERRY CONCENTRATE ORAL) Take by mouth once daily. Problem List As Of Date 04/14/2023 Noted Resolved Bleeding ulcer [K28.4] 04/16/2014 Hypertension [I10] 04/16/2014 Hyperlipidemia with target low density lipoprot*04/16/2014 Seizures (HCC) [R56.9] 04/16/2014 Knee pain, left [M25.562] 04/23/2014 Acute shoulder pain due to trauma [M25.519, G89*02/19/2016 Encounter Status:Closed by EPIC, PRODUSER on 04/19/23 [facility] 04-14-2023 Miscellaneous Notes Letter mailed to pt with information listed below. Saida Luna LPN My chart message to pt. Left a message for pt to call the office and ask to speak to a nurse. Saida Luna LPN TC to patient with no answer. Left VM to return call to office to receive update. LEEANNE Murray Patient needs to reschedule missed appointment and get fasting blood work drawn as ordered for further refills. Thank you Roseanna Connor APRN.MALLORY Patient has been identified by name and date of : No Patient phones for refill(s): Requested Prescriptions Pending Prescriptions Disp Refills amLODIPine (NORVASC) 5 mg tablet 90 tablet 3 Sig: Take 1 tablet by mouth once daily. hydroCHLOROthiazide 12.5 mg capsule 90 capsule 3 Sig: Take 1 capsule by mouth once daily. omeprazole (PRILOSEC) 20 mg capsule 90 capsule 3 Sig: Take 2 capsules by mouth once daily. phenytoin ER (DILANTIN) 100 mg ER capsule 360 capsule 3 Sig: Take 2 capsules by mouth twice daily. simvastatin (ZOCOR) 40 mg tablet 90 tablet 3 Sig: Take 1 tablet by mouth daily at bedtime. Date of last office visit in primary care: 09/25/22 Last 2 Encounter Wt Readings: Date: Wt: 09/25/2022 95.7 kg (211 lb) 05/29/2022 95.8 kg (211 lb 3.2 oz) Previous labs/tests for medication: Blood Pressure: BUN (mg/dL) Date Value 08/07/2021 13 Sodium (mmol/L) Date Value 08/07/2021 142 Last 1 Encounter BP Readings: Date: BP: 09/25/2022 118/60 Please advise. Thank you. Carie Toribio LPN Patient requesting also PHENobarbital 97.2 mg tablet 180 tablet 3 Patient has been identified by name and date of : Yes Requested Prescriptions Pending Prescriptions Disp Refills amLODIPine (NORVASC) 5 mg tablet 90 tablet 3 Sig: Take 1 tablet by mouth once daily. hydroCHLOROthiazide 12.5 mg capsule 90 capsule 3 Sig: Take 1 capsule by mouth once daily. omeprazole (PRILOSEC) 20 mg capsule 90 capsule 3 Sig: Take 2 capsules by mouth once daily. phenytoin ER (DILANTIN) 100 mg ER capsule 360 capsule 3 Sig: Take 2 capsules by mouth twice daily. simvastatin (ZOCOR) 40 mg tablet 90 tablet 3 Sig: Take 1 tablet by mouth daily at bedtime. RX INSTRUCTIONS: Patient aware RX will be sent to pharmacy. No need to notify patient. Patient aware RX will be sent to pharmacy. No need to nofity patient. Controlled medication - must be call in. Prema Kelly Pss documented in this encounter [facility] 03-31-2023 Miscellaneous Notes Pt notified. Saida Luna LPN Patient calls upset and crying she is out of phenobarbital medication. Follow up appointment scheduled for April 02 with Roseanna. Patient will have fasting labs done prior to appointment. Patient asking if medication could please be sent in today. Edna Hernandez RN Patient has been identified by name and date of : Patient phones for refill(s): Requested Prescriptions Pending Prescriptions Disp Refills PHENobarbital 97.2 mg tablet 180 tablet 0 Sig: Take 1 tablet by mouth twice daily for 180 days. Date of last office visit in primary care: 09/25/2023, no future appt scheduled Last 2 Encounter Wt Readings: Date: Wt: 09/25/2022 95.7 kg (211 lb) 05/29/2022 95.8 kg (211 lb 3.2 oz) Previous labs/tests for medication: Not applicable Please advise. Thank you. Halima Gay LPN Patient said she will run out of medication tonight, aware needs to schedule appt and get fasting lab work done. documented in this encounter [facility] 12-15-2022 Note Patient Outreach (IN TMMN) REENA TORRES ([id number]) 1960 F Date Time Provider Department 12/15/22 SARAH ROGERS During your visit today, we recorded the following information about you: Allergies As of Date: 12/15/2022 Noted Allergy Reaction IBUPROFEN 04/16/2014 7 - Swelling PENICILLINS 04/16/2014 7 - Swelling SEPTRA (SULFAMETHOXAZOLE-TRIMETHO* 014 2 - Rash Date Reviewed: 09/25/2022 Reviewed by: Carie Toribio LPN - Fully Assessed Visit Diagnoses:Hypertension [I10] Hyperlipidemia with target low density lipoprotein (LDL) cholesterol less than 130 mg/dL [E78.5] Order(s):SCHEDULE LAB TESTING [[id number]] Order #: [id number] FUTURE BASIC METABOLIC PNL [SQBMP] Order #: [id number] FUTURE LIPID PANEL BASIC [SQLIPB] Order #: [id number] FUTURE Prescriptions as of 12/18/2022 - PHENobarbital 97.2 mg tablet Take 1 tablet by mouth twice daily for 180 days. - phenytoin ER (DILANTIN) 100 mg ER capsule Take 2 capsules by mouth twice daily. - omeprazole (PRILOSEC) 20 mg capsule Take 2 capsules by mouth once daily. - amLODIPine (NORVASC) 5 mg tablet Take 1 tablet by mouth once daily. - simvastatin (ZOCOR) 40 mg tablet Take 1 tablet by mouth daily at bedtime. - hydroCHLOROthiazide (HYDRODIURIL, ESIDRIX) 12.5 mg capsule Take 1 capsule by mouth once daily. - naproxen (NAPROSYN) 500 mg tablet Take 1 tablet by mouth twice daily as needed (for pain/inflammation). Take with food. - Azelastine HCl (OPTIVAR) 0.05 % ophthalmic solution Use 1 Drop in both eyes twice daily. - CRANBERRY EXTRACT (CRANBERRY CONCENTRATE ORAL) Take by mouth once daily. Problem List As Of Date 12/15/2022 Noted Resolved Bleeding ulcer [K28.4] 04/16/2014 Hypertension [I10] 04/16/2014 Hyperlipidemia with target low density lipoprot*04/16/2014 Seizures (HCC) [R56.9] 04/16/2014 Knee pain, left [M25.562] 04/23/2014 Acute shoulder pain due to trauma [M25.519, G89*02/19/2016 Encounter Status:Closed by EPIC, PRODUSER on 12/18/22 [facility] 09-30-2022 Miscellaneous Notes Left message for return call. ----- Message from Sarah Rogers MD sent at 09/30/2022 4:51 PM EST ----- Tiarra Your hba1c shows that you have just become early prediabetic- you do not need medications at this time In order to reverse the trend of diabetes, you would need to reduce 7 percent of body weight and exercise 30 mins moderate intensity to reverse/ delay progression to diabetes. I see that you recently lost some weight, that will def help you out. Keep up at your current weight. Regards, Sarah Rogers MD documented in this encounter [facility] 09-25-2022 History of Present illness Narrative Reason for Visit Patient presents with: Follow Up Reena Torres is a 61 year old female who presents here today for Above Complaints.. Health Maintenance HIV SCREENING SHINGRIX VACCINE(1 of 2) PAP TESTING HPV TESTING MAMMOGRAM COVID-19 VACCINE(3 - Booster for Pfizer series) DEPRESSION ASSESSMENT INFLUENZA(1) HPI HTN: Compliant with medications. Denies any chest pain, palpitations, or edema. No SOB. Doesn't check BP at home generally. Careful with diet to avoid salt, trying to eat more fruits and vegetables, exercises regularly. HPL: Reviewed test results with patient , takes medications regularly , does not report side effects. Conscious to avoid red meats, full fat dairy and its by products. Exercising 3 to 5 times a week. No siezures since she last saw me No problem-specific Assessment & Plan notes found for this encounter. PAST MEDICAL HISTORY Diagnosis Date Bleeding ulcer Contracture of palmar fascia Epilepsy (HCC) HTN (hypertension) Hyperlipidemia Trigger finger 10/27/12 right UTI (urinary tract infection) PAST SURGICAL HISTORY Procedure Laterality Date COLONOSCOPY EGD 12/08/12 Dr.Essam Woodall [place] ENDOSCOPY PROC HAND/FINGER SURGERY UNLISTED trigger finger, right hand KNEE ARTHROSCOPY/SURGERY right knee LIG/TRNSXJ FLP TUBE ABDL/VAG APPR UNI/BI 1982 PAST SURGICAL HISTORY OF 2014 left and right foot surgery FAMILY HISTORY Problem Relation Age of Onset other (chf [Other]) Mother Diabetes Sister Diabetes Father Diabetes Paternal Uncle Diabetes Maternal Grandmother Diabetes Paternal Grandmother Stroke Brother at the age of 47 Breast Cancer Sister Colon Cancer Father other (Kideney Cancer [Other]) Father Social History Tobacco Use Smoking status: Never Smokeless tobacco: Never Vaping Use Vaping Use: Never used Substance Use Topics Alcohol use: No Drug use: No Past medical history, appointments, medications, allergies reviewed. Pertinent Lab/Diagnostic Studies are reviewed and discussed today Current Outpatient Medications: PHENobarbital 97.2 mg tablet phenytoin ER (DILANTIN) 100 mg ER capsule omeprazole (PRILOSEC) 20 mg capsule amLODIPine (NORVASC) 5 mg tablet simvastatin (ZOCOR) 40 mg tablet hydroCHLOROthiazide (HYDRODIURIL, ESIDRIX) 12.5 mg capsule naproxen (NAPROSYN) 500 mg tablet Azelastine HCl (OPTIVAR) 0.05 % ophthalmic solution CRANBERRY EXTRACT (CRANBERRY CONCENTRATE ORAL) Review of Systems CONSTITUTIONAL: No fevers, chills night sweats, unintended weight loss CARDIOVASCULAR: No chest pain, dyspnea, palpitations, orthopnea, PND, ankle edema. PULM: No dyspnea, unexplained cough. GI: No dysphagia/odynophagia, problematic reflux, constipation, diarrhea, changes in stool habits, hematochezia, melena. : No new urinary complaints, including dysuria, gross hematuria or pyuria. NEURO: No new balance problems, peripheral weakness/paresthesias or numbness of concern. Physical Exam BP 118/60 (BP Site: Left Arm, BP Position: Sitting, BP Cuff Size: Large Adult) Pulse 83 Temp 36.9 C (98.4 F) Resp 12 Ht 172.7 cm (5' 8 ) Wt 95.7 kg (211 lb) SpO2 99% BMI 32.08 kg/m General appearance: Well appearing, alert, in no acute distress, well nourished. Skin: Skin color, texture, turgor normal, no suspicious rashes or lesions Head: Normocephalic, no masses, lesions, tenderness or abnormalities Eyes: Anicteric sclera. Pupils are equally round and reactive to light. Extraocular movements are intact. Lungs: Lungs clear to auscultation. No wheezing, rhonchi, rales Heart: RRR without murmur, gallop, or rubs. Extremities: No deformities, edema, skin discoloration, clubbing or cyanosis. Good capillary refill. ASSESSMENT/PLAN: 1. Seizures (HCC) - ICD9: 780.39, ICD10: R56.9 (primary diagnosis) - PHENOBARBITAL BLD 2. Primary hypertension - ICD9: 401.9, ICD10: I10 - good control - Recommended regular aerobic exercise. - Recommend home blood pressure monitoring, to bring results in on next visit - Goal of BP <130/80 3. Hyperlipidemia with target low density lipoprotein (LDL) cholesterol less than 130 mg/dL - ICD9: 272.4, ICD10: E78.5 - good control - Continue current medication. Sarah Rogers MD documented in this encounter [facility] 09-18-2022 Miscellaneous Notes Patient has been identified by name and date of : Yes Patient phones for refill(s): Requested Prescriptions Pending Prescriptions Disp Refills PHENobarbital 97.2 mg tablet 180 tablet 1 Sig: Take 1 tablet by mouth twice daily for 180 days. Date of last office visit in primary care: 04/28/2022 Last 2 Encounter Wt Readings: Date: Wt: 05/29/2022 95.8 kg (211 lb 3.2 oz) 04/28/2022 96.2 kg (212 lb) Previous labs/tests for medication: Not applicable Please advise. Thank you. Carie Toribio LPN documented in this encounter [facility] 05-29-2022 History of Present illness Narrative Images from the original note were not included. This note was created using [employer]. Sukhdeep Torres is a 61 year old female. 61 year old female with PMH HTN, hyperlipidemia, seizures presents with complaints of seizures, HTN, UTI, hyperlipidemia presents with complaints of wound check/staple removal. Acute onset of symptoms was last Wednesday She states that she ultimately forgot to take her seizure medicines. She had a seizure and struck her head Was seen at [facility], she states 7 fredo and one suture Endorses that she has removed 3 of the fredo on her own Denies drainage or increased pain at site of wound. Denies fever or chills. States uncomfortable to sleep at night. Denies concerns related to the wound itself. The history is provided by the patient. No language tutor was used. Wound Check This is a new problem. The current episode started in the past 7 days. The problem occurs constantly. The problem has been unchanged. Pertinent negatives include no abdominal pain, anorexia, arthralgias, change in bowel habit, chest pain, chills, congestion, coughing, diaphoresis, fatigue, fever, headaches, joint swelling, myalgias, nausea, neck pain, numbness, rash, sore throat, swollen glands, urinary symptoms, vertigo, visual change, vomiting or weakness. Nothing aggravates the symptoms. She has tried nothing for the symptoms. The treatment provided no relief. PAST MEDICAL HISTORY Diagnosis Date Bleeding ulcer Contracture of palmar fascia Epilepsy (HCC) HTN (hypertension) Hyperlipidemia Trigger finger 10/27/12 right UTI (urinary tract infection) PAST SURGICAL HISTORY Procedure Laterality Date COLONOSCOPY EGD 12/08/12 Dr.Essam Woodall [place], [place] ENDOSCOPY PROC HAND/FINGER SURGERY UNLISTED trigger finger, right hand KNEE ARTHROSCOPY/SURGERY right knee LIG/TRNSXJ FLP TUBE ABDL/VAG APPR UNI/BI 1982 PAST SURGICAL HISTORY OF 2013 left and right foot surgery ALLERGIES Ibuprofen, Penicillins, and Septra [Sulfamethoxazole-Trimethoprim] MEDICATIONS phenytoin ER (DILANTIN) 100 mg ER capsule Take 2 capsules by mouth twice daily. omeprazole (PRILOSEC) 20 mg capsule Take 2 capsules by mouth once daily. amLODIPine (NORVASC) 5 mg tablet Take 1 tablet by mouth once daily. simvastatin (ZOCOR) 40 mg tablet Take 1 tablet by mouth daily at bedtime. hydroCHLOROthiazide (HYDRODIURIL, ESIDRIX) 12.5 mg capsule Take 1 capsule by mouth once daily. PHENobarbital 97.2 mg tablet Take 1 tablet by mouth twice daily for 180 days. naproxen (NAPROSYN) 500 mg tablet Take 1 tablet by mouth twice daily as needed (for pain/inflammation). Take with food. Azelastine HCl (OPTIVAR) 0.05 % ophthalmic solution Use 1 Drop in both eyes twice daily. CRANBERRY EXTRACT (CRANBERRY CONCENTRATE ORAL) Take by mouth once daily. FAMILY HISTORY Problem Relation Age of Onset other (chf [Other]) Mother Diabetes Sister Diabetes Father Diabetes Paternal Uncle Diabetes Maternal Grandmother Diabetes Paternal Grandmother Stroke Brother at the age of 47 Breast Cancer Sister Colon Cancer Father other (Kideney Cancer [Other]) Father Social History Tobacco Use Smoking status: Never Smoker Smokeless tobacco: Never Used Vaping Use Vaping Use: Never used Substance Use Topics Alcohol use: No Drug use: No Review of Systems Constitutional: Negative for chills, diaphoresis, fatigue and fever. HENT: Negative for congestion and sore throat. Respiratory: Negative for apnea, cough, choking and chest tightness. Cardiovascular: Negative for chest pain, palpitations and leg swelling. Gastrointestinal: Negative for abdominal pain, anorexia, change in bowel habit, nausea and vomiting. Musculoskeletal: Negative for arthralgias, joint swelling, myalgias and neck pain. Skin: Positive for wound. Negative for rash. Allergic/Immunologic: Negative for environmental allergies, food allergies and immunocompromised state. Neurological: Negative for vertigo, weakness, numbness and headaches. Hematological: Negative for adenopathy. Does not bruise/bleed easily. Psychiatric/Behavioral: Negative for agitation and behavioral problems. Objective BP 122/74 Pulse 78 Temp 36.3 C (97.4 F) Resp 18 Wt 95.8 kg (211 lb 3.2 oz) SpO2 97% BMI 32.11 kg/m Physical Exam Vitals and nursing note reviewed. Constitutional: General: She is not in acute distress. Appearance: Normal appearance. She is normal weight. She is not ill-appearing, toxic-appearing or diaphoretic. HENT: Head: Normocephalic and atraumatic. Right Ear: Ear canal and external ear normal. Left Ear: Ear canal and external ear normal. Nose: Nose normal. No congestion or rhinorrhea. Mouth/Throat: Mouth: Mucous membranes are moist. Pharynx: No oropharyngeal exudate or posterior oropharyngeal erythema. Eyes: General: Right eye: No discharge. Left eye: No discharge. Extraocular Movements: Extraocular movements intact. Conjunctiva/sclera: Conjunctivae normal. Pupils: Pupils are equal, round, and reactive to light. Cardiovascular: Rate and Rhythm: Normal rate and regular rhythm. Pulses: Normal pulses. Heart sounds: Normal heart sounds. No murmur heard. No friction rub. Pulmonary: Effort: Pulmonary effort is normal. No respiratory distress. Breath sounds: Normal breath sounds. No stridor. No wheezing, rhonchi or rales. Chest: Chest wall: No tenderness. Abdominal: General: Abdomen is flat. There is no distension. Palpations: Abdomen is soft. There is no mass. Tenderness: There is no abdominal tenderness. There is no right CVA tenderness, left CVA tenderness, guarding or rebound. Hernia: No hernia is present. Musculoskeletal: General: No swelling, tenderness, deformity or signs of injury. Normal range of motion. Cervical back: Normal range of motion and neck supple. No rigidity. Right lower leg: No edema. Left lower leg: No edema. Lymphadenopathy: Cervical: No cervical adenopathy. Skin: General: Skin is warm and dry. Capillary Refill: Capillary refill takes less than 2 seconds. Coloration: Skin is not jaundiced or pale. Findings: No bruising, erythema, lesion or rash. Neurological: General: No focal deficit present. Mental Status: She is alert and oriented to person, place, and time. Cranial Nerves: No cranial nerve deficit. Sensory: No sensory deficit. Motor: No weakness. Coordination: Coordination normal. Gait: Gait normal. Psychiatric: Mood and Affect: Mood normal. Behavior: Behavior normal. Thought Content: Thought content normal. Judgment: Judgment normal. Assessment and Plan ASSESSMENT/PLAN: 1. Visit for suture removal - ICD9: V58.32, ICD10: Z48.02 (primary diagnosis) The wound/laceration was assessed and x 1 suture and x 4 fredo were removed as ordered. No dressing required. Patient instructed on wound care and verbalized understanding. 2. Visit for wound check - ICD9: V58.89, ICD10: Z51.89 Wound looks good No crepitus No drainage. No streaking Trudy Yeboah APRN.MALLORY documented in this encounter [facility] 04-28-2022 History of Present illness Narrative Reason for Visit Patient presents with: Established Patient: 6 month follow up-labs Reena Torres is a 61 year old female who presents here today for Above Complaints. Health Maintenance HIV SCREENING SHINGRIX VACCINE(1 of 2) PAP TESTING HPV TESTING MAMMOGRAM COVID-19 VACCINE(3 - Booster for Pfizer series) DEPRESSION SCREENING HPI She has lost around 50 pounds in the past 7 Years. Just walking up and down the stairs and being more active, also has a job that is keeping her on her toes. Today hba1c is normal. Since patient last saw me she lost her who is also my patient and it has been really really hard for her Shoulder pain: much better after changing jobs...... She did not injure her left shoulder. She went to the hospital. They did an xr and no bony abnormality was found. Patient is able to lift the arm to around 65 degrees and not more than that. Need her phenytoin refilled for her she has not had seizures since she last saw me. HTN: Compliant with medications. Denies any chest pain, palpitations, or edema. No SOB. Doesn't check BP at home generally. Careful with diet to avoid salt, trying to eat more fruits and vegetables, exercises regularly. HPL: Reviewed test results with patient , takes medications regularly , does not report side effects. Conscious to avoid red meats, full fat dairy and its by products. Exercising 3 to 5 times a week. No problem-specific Assessment & Plan notes found for this encounter. PAST MEDICAL HISTORY Diagnosis Date Bleeding ulcer Contracture of palmar fascia Epilepsy (HCC) HTN (hypertension) Hyperlipidemia Trigger finger 10/27/12 right UTI (urinary tract infection) PAST SURGICAL HISTORY Procedure Laterality Date COLONOSCOPY [place] PROC HAND/FINGER SURGERY UNLISTED trigger finger, right hand KNEE ARTHROSCOPY/SURGERY right knee LIG/TRNSXJ FLP TUBE ABDL/VAG APPR UNI/BI 1982 PAST SURGICAL HISTORY OF 2013 left and right foot surgery FAMILY HISTORY Problem Relation Age of Onset other (chf [Other]) Mother Diabetes Sister Diabetes Father Diabetes Paternal Uncle Diabetes Maternal Grandmother Diabetes Paternal Grandmother Stroke Brother at the age of 47 Breast Cancer Sister Colon Cancer Father other (Kideney Cancer [Other]) Father Social History Tobacco Use Smoking status: Never Smoker Smokeless tobacco: Never Used Vaping Use Vaping Use: Never used Substance Use Topics Alcohol use: No Drug use: No Past medical history, appointments, medications, allergies reviewed. Pertinent Lab/Diagnostic Studies are reviewed and discussed today Current Outpatient Medications: phenytoin ER (DILANTIN) 100 mg ER capsule omeprazole (PRILOSEC) 20 mg capsule amLODIPine (NORVASC) 5 mg tablet simvastatin (ZOCOR) 40 mg tablet hydroCHLOROthiazide (HYDRODIURIL, ESIDRIX) 12.5 mg capsule PHENobarbital 97.2 mg tablet naproxen (NAPROSYN) 500 mg tablet Azelastine HCl (OPTIVAR) 0.05 % ophthalmic solution CRANBERRY EXTRACT (CRANBERRY CONCENTRATE ORAL) Review of Systems CONSTITUTIONAL: No fevers, chills night sweats, unintended weight loss CARDIOVASCULAR: No chest pain, dyspnea, palpitations, orthopnea, PND, ankle edema. PULM: No dyspnea, unexplained cough. GI: No dysphagia/odynophagia, problematic reflux, constipation, diarrhea, changes in stool habits, hematochezia, melena. : No new urinary complaints, including dysuria, gross hematuria or pyuria. NEURO: No new balance problems, peripheral weakness/paresthesias or numbness of concern. Physical Exam BP 130/72 (BP Site: Left Arm, BP Position: Sitting, BP Cuff Size: Large Adult) Pulse 72 Temp 36.8 C (98.3 F) Resp 12 Ht 172.7 cm (5' 8 ) Wt 96.2 kg (212 lb) SpO2 97% BMI 32.23 kg/m General appearance: Well appearing, alert, in no acute distress, well nourished. Skin: Skin color, texture, turgor normal, no suspicious rashes or lesions Head: Normocephalic, no masses, lesions, tenderness or abnormalities Eyes: Anicteric sclera. Pupils are equally round and reactive to light. Extraocular movements are intact. Lungs: Lungs clear to auscultation. No wheezing, rhonchi, rales Heart: RRR without murmur, gallop, or rubs. Extremities: No deformities, edema, skin discoloration, clubbing or cyanosis. Good capillary refill. ASSESSMENT/PLAN: 1. Prediabetes - ICD9: 790.29, ICD10: R73.03 (primary diagnosis) Hba1c today is 6.0. careful to avoid carbs etc, she notes she does not eat much carbs any way Has a grandson with Diabetes Mellitus and has to maintain his sugars 2. Elevated blood sugar - ICD9: 790.29, ICD10: R73.9 - HEMOGLOBIN A1C (POC) 3. Primary hypertension - ICD9: 401.9, ICD10: I10 - good control - Recommended regular aerobic exercise. - Recommend home blood pressure monitoring, to bring results in on next visit - Goal of BP <130/80 4. Hyperlipidemia with target low density lipoprotein (LDL) cholesterol less than 130 mg/dL - ICD9: 272.4, ICD10: E78.5 - good control - Continue current medication. Sarah Rogers MD documented in this encounter [facility] 03-26-2022 Miscellaneous Notes Last seen pcp 10/28/21 Next appt with pcp 04/28/22. Patient calling in refills, I was able to fill all medications from her medication list however she has asked for mediation I did not find. Refill to go to [facility] Phenobarbital 97.2 mg tablet takes twice daily Please call patient when refill is sent to the pharmacy at [phone] documented in this encounter [facility] 03-26-2022 Miscellaneous Notes Last see pcp 10/28/21. next appt 04/28/22 with pcp. Any labs due? Patient has been identified by name and date of : Yes Pending Prescriptions Disp Refills PHENYTOIN SODIUM EXTENDED 100 MG CAPSULE 360 capsule 2 Sig: Take 2 capsules by mouth twice daily. BROOKS: No OMEPRAZOLE 20 MG CAPSULE,DELAYED RELEASE 90 capsule 3 Sig: Take 2 capsules by mouth once daily. BROOKS: No AMLODIPINE 5 MG TABLET 90 tablet 3 Sig: Take 1 tablet by mouth once daily. BROOKS: No SIMVASTATIN 40 MG TABLET 90 tablet 1 Sig: Take 1 tablet by mouth daily at bedtime. BROOKS: No HYDROCHLOROTHIAZIDE 12.5 MG CAPSULE 90 capsule 3 Sig: Take 1 capsule by mouth once daily. BROOKS: No RX INSTRUCTIONS: Patient aware RX will be sent to pharmacy. No need to notify patient. Virgenjohn Ponce [employer] documented in this encounter [facility] 01-24-2022 Miscellaneous Notes Pt is requesting a copy, she would like to know what she can and can't do at work, if you could please follow up with patient. CHENG Dumont Left message for return call. Form faxed to number on form. Would patient like a copy? Paperwork filled out. If employer needs additional information, patient will need to come in to be evaluated. Thank you Roseanna Connor APRN.MALLORY phoned patient and mail box is full and unable to leave message. We will try back again. We need to know the dates for leave? Carie Toribio LPN Forms received and placed on PCP desk for review. Please get forms and [facility] and place on [facility] or Dr. Rogers's desk to review. Thank you Roseanna Connor APRN.CNP Patient calling from our parking lot, she has leave of absence forms that need completed and faxed back before 6 pm . She works at [employer] and had UTI, could not work due to urinating to frequently, left work from 01/09 is to return to work on 01/15 had lower abdominal pain, was at [facility] ER. Patient is dropping forms off in main lobby right now. Please advise documented in this encounter [facility] Diagnosis Seizures (HCC) Other convulsions [facility] Diagnosis Prediabetes- Primary Other abnormal glucose Elevated blood sugar Other abnormal glucose Primary hypertension Unspecified essential hypertension Hyperlipidemia with target low density lipoprotein (LDL) cholesterol less than 130 mg/dL [facility] Diagnosis Visit for suture removal- Primary Encounter for removal of sutures Visit for wound check Encounter for other specified aftercare [facility] Diagnosis Seizures (HCC) Other convulsions [facility] Seizures (HCC)- Primary Other convulsions Primary hypertension Unspecified essential hypertension Hyperlipidemia with target low density lipoprotein (LDL) cholesterol less than 130 mg/dL [facility] Diagnosis Hypertension Unspecified essential hypertension Hyperlipidemia with target low density lipoprotein (LDL) cholesterol less than 130 mg/dL [facility] Diagnosis Annual physical exam- Primary Routine general medical examination at a health care facility GERD with esophagitis Seizures (HCC) Other convulsions Hypertension, unspecified type Hyperlipidemia with target low density lipoprotein (LDL) cholesterol less than 130 mg/dL Prediabetes Other abnormal glucose Medication management Encounter for long-term (current) use of other medications [facility] Diagnosis Encounter for screening mammogram for breast cancer [facility] Diagnosis Seizures (HCC) Other convulsions [facility] Diagnosis Seizures (HCC) Other convulsions [facility] Diagnosis Hyperglycemia- Primary Other abnormal glucose Intractable epilepsy without status epilepticus, unspecified epilepsy type (HCC) Screening for deficiency anemia Screening for other and unspecified deficiency anemia Primary hypertension Unspecified essential hypertension Mixed hyperlipidemia [facility]* Diagnosis Nonintractable epilepsy without status epilepticus, unspecified epilepsy type (HCC)- Primary [facility] Diagnostic Procedure Only (Routine) - Pending Review Specialty Diagnoses / Procedures Referred By Contgisela t Referred To Contact [facility] Diagnoses Encounter for screening mammogram for breast cancer Procedures OSWALD SCREENING SCREENING MAMMOGRAPHY BI 2-VIEW BREAST INC CAD Sarah Rogers MD [address] [place] [address] [facility] [address] [place] [address] Referral ID Status Reason Start Date Expiration Date Visits Requested Visits Authorized [id number] Pending Review Auto-Generat ed Referral 04/14/2023 05/13/2024 1 1 [facility] Summary Purpose Family History No Family History Records FoundNo Family History Records FoundNo Family History Records Found Advance Directives No Advanced Directives Records FoundNo Advanced Directives Records FoundNo Advanced Directives Records Found Additional Source Comments INFORMATION SOURCE (unrecogn ized section and content) DATE CREATED AUTHOR AUTHOR'S ORGANIZ ATION 09/28/2023 [facility] DATE CREATED AUTHOR AUTHOR'S ORGANIZ ATION 11/27/2023 [facility] Source Comments (unrecognize d section and content) In the event this informatio n is protected by the Federal Confidentiality of Alcohol and Drug Abuse Patient Records regulations: The Federal rules restrict any use of the information to criminally investigate or prosecute any alcohol or drug abuse patient.[facility] the event this information is protected by the Federal Confidentiality of Alcohol and Drug Abuse Patient Records regulations: The Federal rules restrict any use of the information to criminally investigate or prosecute any alcohol or drug abuse patient.[facility] the event this information is protected by the Federal Confidentiality of Alcohol and Drug Abuse Patient Records regulations: The Federal rules restrict any use of the information to criminally investigate or prosecute any alcohol or drug abuse patient.[facility] the event this information is protected by the Federal Confidentiality of Alcohol and Drug Abuse Patient Records regulations: The Federal rules restrict any use of the information to criminally investigate or prosecute any alcohol or drug abuse patient.[facility] the event this information is protected by the Federal Confidentiality of Alcohol and Drug Abuse Patient Records regulations: The Federal rules restrict any use of the information to criminally investigate or prosecute any alcohol or drug abuse patient.[facility] the event this information is protected by the Federal Confidentiality of Alcohol and Drug Abuse Patient Records regulations: The Federal rules restrict any use of the information to criminally investigate or prosecute any alcohol or drug abuse patient.[facility] the event this information is protected by the Federal Confidentiality of Alcohol and Drug Abuse Patient Records regulations: The Federal rules restrict any use of the information to criminally investigate or prosecute any alcohol or drug abuse patient.[facility] the event this information is protected by the Federal Confidentiality of Alcohol and Drug Abuse Patient Records regulations: The Federal rules restrict any use of the information to criminally investigate or prosecute any alcohol or drug abuse patient.[facility] the event this information is protected by the Federal Confidentiality of Alcohol and Drug Abuse Patient Records regulations: The Federal rules restrict any use of the information to criminally investigate or prosecute any alcohol or drug abuse patient.[facility] the event this information is protected by the Federal Confidentiality of Alcohol and Drug Abuse Patient Records regulations: The Federal rules restrict any use of the information to criminally investigate or prosecute any alcohol or drug abuse patient.[facility] the event this information is protected by the Federal Confidentiality of Alcohol and Drug Abuse Patient Records regulations: The Federal rules restrict any use of the information to criminally investigate or prosecute any alcohol or drug abuse patient.[facility] the event this information is protected by the Federal Confidentiality of Alcohol and Drug Abuse Patient Records regulations: The Federal rules restrict any use of the information to criminally investigate or prosecute any alcohol or drug abuse patient.[facility] the event this information is protected by the Federal Confidentiality of Alcohol and Drug Abuse Patient Records regulations: The Federal rules restrict any use of the information to criminally investigate or prosecute any alcohol or drug abuse patient.[facility] the event this information is protected by the Federal Confidentiality of Alcohol and Drug Abuse Patient Records regulations: The Federal rules restrict any use of the information to criminally investigate or prosecute any alcohol or drug abuse patient.[facility] the event this information is protected by the Federal Confidentiality of Alcohol and Drug Abuse Patient Records regulations: The Federal rules restrict any use of the information to criminally investigate or prosecute any alcohol or drug abuse patient.[facility] the event this information is protected by the Federal Confidentiality of Alcohol and Drug Abuse Patient Records regulations: The Federal rules restrict any use of the information to criminally investigate or prosecute any alcohol or drug abuse patient.[facility] the event this information is protected by the Federal Confidentiality of Alcohol and Drug Abuse Patient Records regulations: The Federal rules restrict any use of the information to criminally investigate or prosecute any alcohol or drug abuse patient.[facility] the event this information is protected by the Federal Confidentiality of Alcohol and Drug Abuse Patient Records regulations: The Federal rules restrict any use of the information to criminally investigate or prosecute any alcohol or drug abuse patient.[facility] Reason for Visit (unrecogniz ed section and content) Reason Comments Refill Request Reason Comments Medication Question Reason Comments Established Patient 6 month follow up-la bs Reason Comments Follow Up [facility] fredo placed 0 05/20/2022 located top of head, denied Su Reason Comments Refill Request phenobarbital Reason Comments Follow Up Reason Comments Results Reason Onset Date Comments Refill Request 03/26/2023 Reason Onset Date Comments Refill Request 03/24/2023 Reason Onset Date Comments Refill Request 04/24/2023 Reason Onset Date Comments Refill Request 06/18/2023 NEEDS TODAY Reason Comments Erroneous encounter-disregard Reason Comments Appointment insurance is OON Reason Onset Date Comments Seizures 10/23/2023 Reason Comments New Patient Hx seizures High bp Reason Onset Date Comments Med Refill 11/25/2023 Care Teams (unrecognized sec tion and content) Diving Judge Relationship Specialty Start Date End Date Sarah Rogers MD [address], [place] [id number] PCP - General Internal Medicine 04/16/14 Diving Judge Relationship Specialty Start Date End Date Sarah Rogers MD [address], [place] [phone] PCP - General Internal Medicine 04/16/14 Diving Judge Relationship Specialty Start Date End Date Sarah Rogers MD [address] [place] [address] PCP - General Internal Medicine 04/16/14 Diving Judge Relationship Specialty Start Date End Date Sarah Rogers MD [address] [facility] [place] [address] PCP - General Internal Medicine 04/16/14 Diving Judge Relationship Specialty Start Date End Date Sarah Rogers MD [address] [place] [place] [address] PCP - General Internal Medicine 04/16/14 Diving Judge Relationship Specialty Start Date End Date Sarah Rogers MD [address] [facility] [place] [address] PCP - General Internal Medicine 04/16/14 Diving Judge Relationship Specialty Start Date End Date Sarah Rogers MD [address] [facility] [place] [address] PCP - General Internal Medicine 04/16/14 Diving Judge Relationship Specialty Start Date End Date Sarah Rogers MD [address] [facility] [place] [address] PCP - General Internal Medicine 04/16/14 Diving Judge Relationship Specialty Start Date End Date Sarah Rogers MD [address] [facility] [place] [address] PCP - General Internal Medicine 04/16/14 Diving Judge Relationship Specialty Start Date End Date Sarah Rogers MD [address] [facility] [place] [address] PCP - General Internal Medicine 04/16/14 Diving Judge Relationship Specialty Start Date End Date Sarah Rogers MD [address] [facility] [place] [address] PCP - General Internal Medicine 04/16/14 Diving Judge Relationship Specialty Start Date End Date Sarah Rogers MD [address] [place], [place] [id number] PCP - General 08/18/18 Diving Judge Relationship Specialty Start Date End Date Sarah Rogers MD [address] [place], [place] [id number] PCP - General Internal Medicine 04/16/14 Diving Judge Relationship Specialty Start Date End Date Sarah Rogers MD [address] [place], [place] [id number] PCP - General 08/18/18 Diving Judge Relationship Specialty Start Date End Date Tila Sandoval DO [address] [place] [id number] PCP - General Internal Medicine 11/25/23 11/25/23 FOR RECORDS PERTAINING TO PATIENTS WHO ARE OR HAVE BEEN ENROLLED IN A CHEMICAL DEPENDENCY/SUBSTANCEABUSE PROGRAM, SOME INFORMATION MAY BE OMITTED. This clinical summary was aggregated from multiple sources. Caution should be exercised in using it in the provision of clinical care. This summary normalizes information from multiple sources, and as a consequence, information in this document may materially change the coding, format and clinical context of patient data. In addition, data may be omitted in some cases. CLINICAL DECISIONS SHOULD BE BASED ON THE PRIMARY CLINICAL RECORDS. [facility]. provides no warranty or guarantee of the accuracy or completeness of information in this document.
[2023-12-05 13:52] LABS: Phenytoin (Dilantin) Level 10.4 mL (10.0-20.0)
[2023-12-05 13:55] LABS: Anion Gap 5 (5-15); BUN 13 mg/dL (7-18); BUN/Creat Ratio 16.8 RATIO (10-20); Calcium,Total 9.4 mg/dL (8.5-10.1); Chloride 90 mmol/L (98-107); Creatinine, Serum 0.77 mg/dL (0.55-1.02); EST Glomerular Filtration Rate 80 mL/min (>60); Est Glom Filt Rate - Afr Amer 97 mL/min (>60); Estimated Creatinine Clearance 92.01 ml/min; Glucose 473 mg/dL (74-106); Potassium 3.2 mmol/L (3.5-5.1); Sodium Level 128 mmol/L (136-145)
[2023-12-05 14:58] LABS: Mucous, Urine 0 SEEN /hpf (<or=2+); Red Blood Cells-Urine 0 SEEN /hpf (0-5)
[2023-12-05 14:59] LABS: Color, Urine Yellow (Yellow); Glucose, Dipstick 1000 mg/dl (Normal); Ketone-Dipstick Negative (Negative); Leukocyte Esterase-Dipstick 500 /ul (Negative); Nitrite-Dipstick Negative (Negative); Occult Blood-Urine 50 /ul (Negative); Protein-Dipstick 15 mg/dl (Negative); Specific Gravity, Urine 1.015 (1.002-1.030); Urine Bilirubin Dipstick Negative (Negative); Urine Clarity Sl. Cloudy (Clear); Urine Urobilinogen 1 mg/dl (Normal)
[2023-12-05 15:06] LABS: Bacteria 3+ /hpf (None Seen); White Blood Cells >100 SEEN /hpf (0-5)
[2023-12-05 15:07] LABS: Squamous Epithelial Cells - UA 0-5 SEEN /hpf (5-10)
--- NOTE | 2023-12-05 15:24 | PCM.HP.STD ---
HPI - General General Date of Admission: 12/05/23 Date of Service: 12/05/23 Chief Complaint: Malaise HPI Narrative SAL TORRES, is a 63 F who presents generalized malaise, dysgeusia and a rash on her vagina for the last few days. She has noticed polyuria and polydipsia of ongoing since the last few days and suspected that her blood sugars are highly elevated. With progressive fatigue, and some weight loss she decided to visit the ED. There is no associated dysuria. Vaginal rash she feels is from her polyuria and repeated cleaning. She had initially seen some boils in the area but they have responded. There is some pain associated with the rash. Has a history of yeast infections in the past. Her WBC is 8.2, hemoglobin 14.5, platelet of 257, sodium 128, potassium 3.2, glucose of 473 with leukoesterase of 500 negative nitrates, and more than 100 WBCs. Her phenytoin level is 10.4. [facility] Medical History (Updated 12/05/23 @ 17:19 by Kelsi Juarez) Diabetes Encounter for screening for COVID-19 GERD (gastroesophageal reflux disease) High cholesterol Hypertension Rheumatoid arthritis Seizure Home Medications phenobarbital 97.2 mg tablet 97.2 mg PO BID 03/26/14 [History Last Taken 12/05/23] phenytoin sodium extended 100 mg capsule 200 mg PO BID 03/26/14 [History Last Taken 12/05/23] amlodipine 5 mg tablet 5 mg PO DAILY 07/22/16 [History Last Taken 12/05/23] hydrochlorothiazide 12.5 mg capsule 12.5 mg PO DAILY 12/05/23 [History Last Taken 12/05/23] simvastatin 40 mg tablet 40 mg PO QPM 12/05/23 [History Last Taken 12/04/23] Allergy/AdvReac Type Severity Reaction Status Date / Time ibuprofen Allergy Swelling Verified 12/05/23 12:55 Penicillins Allergy Angioedema Verified 12/05/23 12:55 sulfamethoxazole Allergy Hives Verified 12/05/23 12:55 [From ] trimethoprim [From ] Allergy Hives Verified 12/05/23 12:55 Social History household members: none Smoking Status: Never smoker substance use type: does not use ROS Constitutional Constitutional: Reports change in weight, fatigue, malaise and weakness Eyes Eyes: Denies blurry vision, change in eye color, change in vision, discharge from eye(s), double vision, erythema, eye pain, loss of vision or other ENT HEENT: Denies abnormal hearing, dysphagia, ear pain, epistaxis, headache(s), hearing loss, nasal congestion, nasal discharge, post nasal drip, sinus pressure, sore throat or other Cardiovascular Cardiovascular: Denies chest pain, claudication, dyspnea on exertion, edema, lightheadedness, orthopnea, palpitations, paroxysmal nocturnal dyspnea, rapid heart rate, syncope or other Respiratory/Chest Respiratory/Chest: Denies cough, dyspnea, excessive phlegm production, hemoptysis, productive cough, shortness of breath at rest, shortness of breath with exertion, wheezing or other Gastrointestinal Gastrointestinal: Denies abdominal pain, coffee ground emesis, constipation, diarrhea, dyspepsia, hematemesis, hematochezia, loose stools, melena, nausea, vomiting or other Genitourinary Genitourinary: Denies burning urination, difficulty urinating, dysuria, hematuria, nocturia, urinary frequency, urinary hesitancy, urinary incontinence, urinary urgency or other Musculoskeletal Musculoskeletal: Denies arthralgias, back pain, joint pain, joint stiffness, joint swelling, myalgias, neck pain or other Neurologic Neurologic: Denies abnormal gait, abnormal speech, confusion, disequilibrium, dizziness, focal weakness, headache(s), numbness, paresthesias, seizure-like activity, seizures, syncope, tingling, tremor(s) or other Psychiatric Psychiatric: Denies anxiety, depression, homicidal ideation, suicidal ideation or other Endocrine Endocrinology: Denies change in body appearance, cold intolerance, excessive sweating, heat intolerance, polydipsia, polyuria or other Hematologic/Lymphatic Hematologic/Lymphatic: Denies anemia, easy bleeding, easy bruising, lymphadenopathy or other Allergic/Immunologic Allergic/Immunologic: Denies rhinitis, hives, eczemia, asthma or other Vital Signs Vital Signs Vital Signs: 12/05/23 12:53 12/05/23 13:15 Temperature 98 F Temperature Source Temporal Pulse Rate 88 Respiratory Rate 16 Respiratory Effort Normal Non-Labored Respiratory Pattern Normal Blood Pressure 131/87 H Blood Pressure Mean 101 Pulse Ox 98 Oxygen Delivery Method Room Air Weight Weight: 205 lb 2 oz Body Mass Index (BMI) 30.2 Physical Exam Narrative Done in the presence of volunteer specialist nurse Mirta Cardio regular rate and regular rhythm GI normal to inspection, nondistended, normoactive bowel sounds Extremity normal to inspection Skin Skin Narrative: Perianal skin appeared dry, no papules or pustules are present, no rash. No discharge present. Neuro oriented x3 Psych affect normal Results Medical Records Data Attestation: I reviewed the patient's medical records Lab / Micro Data 12/05/23 13:15 12/05/23 13:15 Labs: Laboratory Results - last 24 hr 12/05/23 13:15: WBC 8.2, RBC 4.78, Hgb 14.5, Hct 41.9, MCV 87.7, MCH 30.3, MCHC 34.6, RDW Std Deviation 39.8, RDW Coeff of Ketan 12.5, Plt Count 257, MPV 10.5, Immature Gran % (Auto) 0.400, Neut % (Auto) 73.0 H, Lymph % (Auto) 17.3 L, [place] % (Auto) 8.2, Eos % (Auto) 1.0, Baso % (Auto) 0.1, Absolute Neuts (auto) 6.0, Absolute Lymphs (auto) 1.42, Nucleated RBC % 0, Sodium 128 L, Potassium 3.2 L, Chloride 90 L, Carbon Dioxide 33.0 H, Anion Gap 5, BUN 13, Creatinine 0.77, Estim Creat Clear Calc 92.01, Est GFR (MDRD) Af Amer 97, Est GFR (MDRD) Non-Af 80, BUN/Creatinine Ratio 16.8, Glucose 473 H*, Calcium 9.4, Phenytoin 10.4, Phenobarbital 35.5 12/05/23 14:45: Urine Color Yellow, Urine Clarity Sl. Cloudy, Urine pH 5.0, Ur Specific [place] 1.015, Urine Protein 15 H, Urine Glucose (UA) 1000 H, Urine Ketones Negative, Urine Occult Blood 50 H, Urine Nitrite Negative, Urine Bilirubin Negative, Urine Urobilinogen 1 H, Ur Leukocyte Esterase 500 H, Urine RBC 0 SEEN, Urine WBC >100 SEEN, Ur Squamous Epith Cells 0-5 SEEN, Urine Bacteria 3+, Urine Mucus 0 SEEN Micro: Microbiology 12/05/23 13:24 Mucosa - Nasopharyngeal SARS-CoV-2, Influenza & RSV (PCR) - Final Assessment & Plan Assessment/Plan (1) Acute cystitis: PLAN: Plan 63-year-old female with history of hypertension, GERD, seizure disorder presents to the ED with features of malaise polyuria polydipsia and was found to have severe hyperglycemia. She was previously told that her sugars are in 300 but no therapy was recommended. 1. Hyperglycemia: Not on any therapy, sugars are elevated, there is no anion gap, urine ketones are negative. Will start her on insulin sliding scale to see her requirements. She has never been on insulin before. Will need outpatient follow-up. -Insulin as per sliding scale -A1c levels, TSH 2. Vaginal rash: On evaluation there was no pustules or papules seen in the region, the mucosa was dry and there is no discharge or itching. Xeroderma is the most likely etiology. -Will await the HSV swab. -Emollient therapy as needed 3. Urinary tract infection: There is no white count but pyuria is present plus leuk esterase is positive, will start her on Ciprofloxacin -Ciprofloxacin 500 mg twice daily -Urine cultures, bacterial culture 4. Seizure disorder: Continue phenytoin as prior recommended 5. Hypertension: Continue amlodipine 5 mg
[2023-12-05] MEDS: Insulin Lispro 100 UNIT/ML INSULN.PEN 10 UNIT SC (15:36)
[2023-12-05] MEDS: Ciprofloxacin 400 MG/200 ML BAG 200 MG IV (15:37)
[2023-12-05] MEDS: Potassium Chloride Oral Tablet 20 MEQ 40 MEQ PO (15:37)
[2023-12-05 15:51] VITALS: BP 110/75; PULSE 75; RESP 18; O2SAT 98
--- OUTSIDE RECORDS SUMMARY | 2023-12-05 16:07 | XMS RPT_ITS | CCD ---
Author Name Unknown Address [address] [place] [address] Organization [facility] Care Team Providers Care Test Conductor Name Role Phone PROVIDER, UNKNOWN Unavailable Unavailable PROVIDER, UNKNOWN Unavailable Unavailable NASIM BREWER Unavailable Unavailable Sarah Rogers MD Primary Care Provider Sarah Rogers MD Primary Care Provider Sarah Rogers MD Primary Care Provider Tila Sandoval DO Primary Care Provider [phone] KHARI MARTIN Attending Unavailable SARAH ROGERS Primary Care Unavailable Allergies Allergy Classification Reported Allergen(s) Allergy Type Date of Onset Reaction(s) Facility (20 sources) Ibuprofen Drug Allergy 07-17-20 13 Swelling, Hives [facility] Work Phone: [phone] (4 sources) Penicillins Drug Allergy 04-16-20 14 Swelling [facility] Work Phone: [phone] (20 sources) Sulfamethoxazole / Trimethoprim Drug Allergy 07-17-20 13 Rash, Hives [facility] Work Phone: [phone] (14 sources) Penicillins Drug Allergy 04-16-20 14 Swelling [facility] Work Phone: [phone] (2 sources) Penicillins Drug Allergy 07-17-20 13 Hives, Swelling [facility] (2 sources) Sulfamethoxazole Allergy to substance 05-14-20 19 [facility] (2 sources) Trimethoprim Drug Allergy 05-14-20 19 [facility] Medications Current Medications Medication Drug Class(es) [...] 175.3 cm Khari Martin PA-C Work Phone: [employer] 11-04-2023 09:03-0500 Body mass index (BMI) [Ratio] 32.49 kg/m2 Khari Martin PA-C Work Phone: [employer] 11-04-2023 09:03-0500 Body temperature 97 [degF] Khari Martin PA-C Work Phone: [employer] 11-04-2023 09:03-0500 Body weight 99.79 kg Khari Martin PA-C Work Phone: [employer] 11-04-2023 09:03-0500 Diastolic blood pressure 85 mm[Hg] Khari Martin PA-C Work Phone: [employer] 11-04-2023 09:03-0500 Heart rate 77 /min Khari Martin PA-C Work Phone: [facility] 11-04-2023 09:03-0500 SaO2% (BldA) [Mass fraction] 97 % Khari Martin PA-C Work Phone: [facility] 11-04-2023 09:03-0500 Systolic blood pressure 120 mm[Hg] Khari Martin PA-C Work Phone: [facility] 09-25-2022 15:17-0500 Body height 172.7 cm Sarah Rogers MD Work Phone: [facility] 09-25-2022 15:17-0500 Body temperature 98.4 [degF] Sarah Rogers MD Work Phone: [facility] 09-25-2022 15:17-0500 Body weight 95.71 kg Sarah Rogers MD Work Phone: [facility] 09-25-2022 15:17-0500 Diastolic blood pressure 60 mm[Hg] Sarah Rogers MD Work Phone: [facility] 09-25-2022 15:17-0500 Heart rate 83 /min Sarah Rogers MD Work Phone: [facility] 09-25-2022 15:17-0500 Respiratory rate 12 /min Sarah Rogers MD Work Phone: [facility] 09-25-2022 15:17-0500 SaO2% (BldA) [Mass fraction] 99 % Sarah Rogers MD Work Phone: [facility] 09-25-2022 15:17-0500 Systolic blood pressure 118 mm[Hg] Sarah Rogers MD Work Phone: [facility] 05-29-2022 15:27-0400 Body temperature 97.39 [degF] Trudy Yeboah PSYCHOTHERAPIST SOCIAL WORKER.SITE ACQUISITION MANAGER Work Phone: [facility] 05-29-2022 15:27-0400 Body weight 95.8 kg Trudy Yeboah PSYCHOTHERAPIST SOCIAL WORKER.SITE ACQUISITION MANAGER Work Phone: [facility] 05-29-2022 15:27-0400 Diastolic blood pressure 74 mm[Hg] Trudy Yeboah PSYCHOTHERAPIST SOCIAL WORKER.SITE ACQUISITION MANAGER Work Phone: [facility] 05-29-2022 15:27-0400 Heart rate 78 /min Trudy Yeboah PSYCHOTHERAPIST SOCIAL WORKER.SITE ACQUISITION MANAGER Work Phone: [facility] 05-29-2022 15:27-0400 Respiratory rate 18 /min Trudy Yeboah PSYCHOTHERAPIST SOCIAL WORKER.SITE ACQUISITION MANAGER Work Phone: [facility] 05-29-2022 15:27-0400 SaO2% (BldA) [Mass fraction] 97 % Trudy Yeboah PSYCHOTHERAPIST SOCIAL WORKER.SITE ACQUISITION MANAGER Work Phone: [facility] 05-29-2022 15:27-0400 Systolic blood pressure 122 mm[Hg] Trudy Yeboah PSYCHOTHERAPIST SOCIAL WORKER.SITE ACQUISITION MANAGER Work Phone: [facility] 04-28-2022 15:52-0400 Body height 172.7 cm Sarah Rogers MD Work Phone: [facility] 04-28-2022 15:52-0400 Body temperature 98.29 [degF] Sarah Rogers MD Work Phone: [facility] 04-28-2022 15:52-0400 Body weight 96.16 kg Sarah Rogers MD Work Phone: [facility] 04-28-2022 15:52-0400 Diastolic blood pressure 72 mm[Hg] Sarah Rogers MD Work Phone: [facility] 04-28-2022 15:52-0400 Heart rate 72 /min Sarah Rogers MD Work Phone: [facility] 04-28-2022 15:52-0400 Respiratory rate 12 /min Sarah Rogers MD Work Phone: [facility] 04-28-2022 15:52-0400 SaO2% (BldA) [Mass fraction] 97 % Sarah Rogers MD Work Phone: [facility] 04-28-2022 15:52-0400 Systolic blood pressure 130 mm[Hg] Sarah Rogers MD Work Phone: [facility] Encounters Encounter Date Encounter Type Care Provider Facility Start: 11-25-2023 Refill Khari Latif Work Phone: [facility] Procedures Date Procedure Procedure [...] panel - Serum or Plasma Lipid Screening [facility] Start: 08-07-2026 Lipid panel Lipid Screening [facility] Start: 08-07-2026 LIPID SCREEN LIPID SCREEN [facility] Start: 09-25-2025 DIABETES SCREEN DIABETES SCREEN [facility] Start: 09-25-2025 Diabetes Screening Diabetes Screening [facility] Start: 04-28-2025 DIABETES SCREEN DIABETES SCREEN [facility] Start: 11-04-2024 Depression Screening Depression Screening [facility] Start: 11-04-2024 Diabetes mellitus screening Diabetes Screening [facility] Start: 08-07-2024 DIABETES SCREEN DIABETES SCREEN [facility] Start: 04-16-2024 DTaP/Tdap/Td Vaccines (2 - Td or Tdap) DTaP/Tdap/Td Vaccines (2 - Td or Tdap) [facility] Start: 04-16-2024 Urine microalbumin profile [facility] Start: 01-26-2024 End: 01-26-2024 Patient encounter procedure 01/26/2024 10:20 AM EDT Office Visit [facility] [address] [place] [address] Tila Sandoval DO [address] [place] [address] [facility] Start: 11-04-2023 End: 11-02-2024 CBC W Auto Differential panel - Blood CBC auto differential Lab Routine Screening for deficiency anemia Expected: 11/04/2023 (Approximate), Expires: 11/02/2024 [facility] Immunizations Immunization Date Immunization Notes Care Provider Fa cility 12-29-2018 influenza virus vaccine, unspecified formulation Prema Aguilar PA-C Work Phone: [facility] 04-16-2014 tetanus toxoid, redu maria r diphtheria toxoid, and acellular pertussis vaccine, adsorbed Sarah Rogers MD Work Phone: [facility] Work Phone: Payers Date Payer Category Payer Unknown 2021 Unknown [id number] 2003 Medicaid [place] [employer] [id number] 2003-Present [phone] [place] [id number] Medicaid [id number] 2003 Medicaid [id number] Social History Date Type Detail Facility Start: 01-27-2018 End: 09-25-2022 Tobacco smoking status TXIS Never smoked tobacco [facility] Work Phone: Start: 10-28-2021 End: 11-04-2023 Alcohol intake Current non-drinker of alcohol (finding) [facility] Start: 1960 Sex Assigned At Not on file [facility] Start: 01-03-2022 End: 09-25-2022 Exposure to SARS-CoV-2 (event) Not sure [facility] Work Phone: Start: 01-27-2018 End: 09-25-2022 Tobacco use and exposure Smokeless tobacco non-user [facility] Work Phone: Start: 09-25-2022 End: 11-04-2023 History of Social function [facility] Start: 09-25-2022 End: 11-04-2023 Tobacco use panel [facility] Adult Depression Screening Assessment 0 [facility] Has the [employer], [employer], [employer], or water company threatened to shut off services in your home in past 12Mo No [facility] Do you belong to any clubs or organizations such as temple groups, unions, fraternal or athletic groups, or school groups? Yes [facility] Are you now , , , , never or living with a partner? [facility] How often to you hav e a drink containing alcohol? Monthly or less [facility] How many standard dr inks containing alcohol do you have on a typical day? 1 or 2 [facility] How often do you hav e 6 or more drinks on 1 occasion? Never [facility] Do you feel stress - tense, restless, nervous, or anxious, or unable to sleep at night because your mind is troubled all the time - these days [OSQ] Only a little [facility] (I/We) worried wheth er (my/our) food would run out before (I/we) got money to buy more. Never true [facility] Start: 11-04-2023 Alcohol Comment social rare [facility] Start: 1960 Sex Assigned At Female [facility] Start: 11-04-2023 Gender identity Identifies as female gender (finding) [facility] Start: 11-04-2023 Sexual orientation Heterosexual (finding) [facility] Clinical Notes 01-24-2022 to 11-25-2023 Telephone Encounter - Tila Sandoval DO - 11/25/2023 1:10 PM ESTTelephone Encounter - Tila Sandoval DO - 11/25/2023 1:10 PM ESTTelephone Encounter - Mary Collado - 11/25/2023 11:29 AM EST Note Date & Type Note Facility 11-25-2023 Telephone encounter Note I have never seen this patient before. [employer] Work Phone: 11-25-2023 Miscellaneous Notes I have [...] No documented in this encounter [facility] 11-25-2023 Telephone encounter Note Medication name: [...] prior to picking up the medication: No [facility] 11-04-2023 Evaluation + Plan note Associated Problem(s): Epilepsy (HCC) - Chronic stable has been previously seen by neurology and full previous workup and continues on phenobarb and Dilantin. There is been no changes to her dosing regimen or medications we will recheck those levels today and authorize medication refills of Dilantin and phenobarbital [facility] 11-04-2023 Miscellaneous Notes Associated Problem(s): Epilepsy [...] prediabetes. documented in this encounter [facility] 11-04-2023 Evaluation + Plan note Associated Problem(s): HTN (hypertension) - Chronic and stable patient is to continue on hydrochlorothiazide 12.5 mg daily although reportedly ran out of that and has been off it can consider discontinuing hydrochlorothiazide. - Patient is to continue amlodipine 5 mg daily. [facility] 11-04-2023 Evaluation + Plan note Associated Problem(s): Hyperlipidemia - Chronic and previously unstable with an LDL checked 2 years ago was 111 for now we will continue on Zocor 40 mg daily and reassess LDL level. [facility] 11-04-2023 Evaluation + Plan note Associated Problem(s): Hyperglycemia - Chronic and stable previous elevated sugar with family history of diabetes and patient has a personal history of elevated blood sugar and prediabetes. [facility] 11-04-2023 History of Present illness Narrative Images from the original note were not included. [facility] [address] [place] [address] [address] [facility] [address] Dept: [phone] Dept Loc: [phone] Visit type: New Patient Reason for Visit: [...] tablet (5 mg) by mouth daily., Starting [facility] 11/04/2023, Normal - hydroCHLOROthiazide (Microzide) 12.5 MG capsule; Take 1 capsule (12.5 mg) by mouth daily., Starting [facility] 11/04/2023, Normal 5. Mixed hyperlipidemia Assessment & Plan: - Chronic and previously unstable with an LDL checked 2 years ago was 111 for now we will continue on Zocor 40 mg daily and reassess LDL level. Orders: - simvastatin (Zocor) 40 MG tablet; Take 1 tablet (40 mg) by mouth Nightly., Starting [facility] 11/04/2023, Normal Follow up if symptoms worsen or fail to improve, for Next scheduled follow-up. Subjective HPI this is a 63-year-old female with underlying history of hypertension, epilepsy, 40 years, and hyperlipidemia who contacted the [facility] on 10/23 for concerns of regarding seizures and needing her medications for seizures. Patient reported that she does not have a primary care physician and needs her medications. Patient was ultimately instructed by the [facility] to seek evaluation in the emergency room. As the patient was reporting having breakthrough seizures at least 2 times that day. Review of the records does show that the patient was followed up with [facility] and she had Dilantin and phenobarb prescriptions [...] prior to signing but minor errors in bed and breakfast cook may have occurred. documented in this encounter [facility] 10-25-[address] Fitzgerald called and stated he will send Dilantin 100 mg ER capsule and Phenobarbital 9.72 mg scripts for patient's seizures to patient's preferred pharmacy. Patient called and notified. Patient called stating she need refill of phenobarbital medication for her seizures. Patient stated she took the last dose this morning. Dr. Fitzgerald paged. documented in this encounter [facility] 10-23-2023 Telephone encounter Note S: Patient spoke with CAC nurse regarding seizures B: Onset of symptoms/concern ongoing since 2021 A: Patient is a new patient at [facility] and has been experiencing seizures. She [...] occurs on the same day Protocols used: [id number] [facility] 10-23-2023 Miscellaneous Notes S: Patient spoke with CAC nurse regarding seizures B: Onset of symptoms/concern ongoing since 2021 A: Patient is a new patient at [facility] and has been experiencing seizures. She [...] occurs on the same day Protocols used: [id number] documented in this encounter [facility] 09-26-2023 Miscellaneous Notes Note out of network and short term refills sent Pt's previous two referrals for financial clearance have been denied. Pt's insurance is out of network and pt will need to either find another provider who takes [place] or change to another insurance that CC [...] and be seen. Waiting on referral # [id number] to be authorized to schedule appt. Pt needs appt scheduled. Prema Aguilar PA-C documented in this encounter [facility] 06-18-2023 Miscellaneous Notes Spoke with the patient [...] patient. Althea Lynn documented in this encounter [facility] 04-25-2023 Miscellaneous Notes Patient over due for follow up. Thank you Roseanna Connor APRN.SITE ACQUISITION MANAGER Patient has been identified by name and [...] advise. Jodee Lynn documented in this encounter [facility] 04-14-2023 Note Patient Outreach (IN TMMN) REENA TORRES ([id number]) 1960 F Date Time Provider Department 04/14/23 [...] for screening mammogram for breast cancer [Z12.31] Order(s):[facility] SCREENING [[id number]] Order #: [id number] FUTURE Prescriptions as of 04/19/2023 - PHENobarbital [...] Encounter Status:Closed by EPIC, PRODUSER on 04/19/23 [facility] 04-14-2023 Miscellaneous Notes Letter mailed to [...] Prema Kelly Pss documented in this encounter [facility] 03-31-2023 Miscellaneous Notes Pt notified. Saida Luna [...] lab work done. documented in this encounter [facility] 12-15-2022 Note Patient Outreach (IN TMMN) REENA TORRES ([id number]) 1960 F Date Time Provider Department 12/15/22 [...] than 130 mg/dL [E78.5] Order(s):SCHEDULE LAB TESTING [[id number]] Order #: [id number] FUTURE BASIC METABOLIC PNL [SQBMP] Order #: [id number] FUTURE LIPID PANEL BASIC [SQLIPB] Order #: [id number] FUTURE Prescriptions as of 12/18/2022 - PHENobarbital [...] Encounter Status:Closed by EPIC, PRODUSER on 12/18/22 [facility] 09-30-2022 Miscellaneous Notes Left message for [...] Sarah Rogers MD documented in this encounter [facility] 09-25-2022 History of Present illness Narrative Reason [...] Laterality Date COLONOSCOPY EGD 12/08/12 Dr.Essam Wood[place] ENDOSCOPY PROC HAND/FINGER SURGERY UNLISTED trigger finger, [...] Sarah Rogers MD documented in this encounter [facility] 09-18-2022 Miscellaneous Notes Patient has been identified [...] Carie Toribio LPN documented in this encounter [facility] 05-29-2022 History of Present illness Narrative Images from the original note were not included. This note was created using [employer]. Sukhdeep Torres is a 61 year old [...] history is provided by the patient. No automobile inspector was used. Wound Check This is a [...] Laterality Date COLONOSCOPY EGD 12/08/12 Dr.Essam Woodall [place], [place] ENDOSCOPY PROC HAND/FINGER SURGERY UNLISTED trigger [...] Trudy Yeboah APRN.MALLORY documented in this encounter [facility] 04-28-2022 History of Present illness Narrative Reason [...] Procedure Laterality Date COLONOSCOPY EGD 12/08/12 Dr[place] HAND/FINGER SURGERY UNLISTED trigger [...] Sarah Rogers MD documented in this encounter [facility] 03-26-2022 Miscellaneous Notes Last seen pcp 10/28/21 Next appt with pcp 04/28/22. Patient calling in refills, I was able to fill all medications from her medication list however she has asked for mediation I did not find. Refill to go to [email or web address] Phenobarbital 97.2 mg tablet takes twice daily Please call patient when refill is sent to the pharmacy at [phone] documented in this encounter [facility] 03-26-2022 Miscellaneous Notes Last see pcp 10/28/21. [...] Virgenjohn Ponce [employer] documented in this encounter [facility] 01-24-2022 Miscellaneous Notes Pt is requesting a [...] desk for review. Please get forms and [facility] and place on [facility] or Dr. Rogers's desk to review. Thank you Roseanna Connor APRN.CNP Patient calling from our parking lot, she has leave of absence forms that need completed and faxed back before 6 pm . She works at [employer] and had UTI, could not work due to urinating to frequently, left work from 01/09 is to return to work on 01/15 had lower abdominal pain, was at [facility] ER. Patient is dropping forms off in main lobby right now. Please advise documented in this encounter [facility] Diagnosis Seizures (HCC) Other convulsions [facility] Diagnosis Prediabetes- Primary Other abnormal glucose Elevated blood sugar Other abnormal glucose Primary hypertension Unspecified essential hypertension Hyperlipidemia with target low density lipoprotein (LDL) cholesterol less than 130 mg/dL [facility] Diagnosis Visit for suture removal- Primary Encounter for removal of sutures Visit for wound check Encounter for other specified aftercare [facility] Diagnosis Seizures (HCC) Other convulsions [facility] Seizures (HCC)- Primary Other convulsions Primary hypertension Unspecified essential hypertension Hyperlipidemia with target low density lipoprotein (LDL) cholesterol less than 130 mg/dL [facility] Diagnosis Hypertension Unspecified essential hypertension Hyperlipidemia with target low density lipoprotein (LDL) cholesterol less than 130 mg/dL [facility] Diagnosis Annual physical exam- Primary Routine general medical examination at a health care facility GERD with esophagitis Seizures (HCC) Other convulsions Hypertension, unspecified type Hyperlipidemia with target low density lipoprotein (LDL) cholesterol less than 130 mg/dL Prediabetes Other abnormal glucose Medication management Encounter for long-term (current) use of other medications [facility] Diagnosis Encounter for screening mammogram for [facility] cancer [facility] Diagnosis Seizures (HCC) Other convulsions [facility] Diagnosis Seizures (HCC) Other convulsions [facility] Diagnosis Hyperglycemia- Primary Other abnormal glucose Intractable epilepsy without status epilepticus, unspecified epilepsy type (HCC) Screening for deficiency anemia Screening for other and unspecified deficiency anemia Primary hypertension Unspecified essential hypertension Mixed hyperlipidemia [facility] Diagnosis Nonintractable epilepsy without status epilepticus, unspecified epilepsy type (HCC)- Primary [facility] Diagnostic Procedure Only (Routine) - Pending Review Specialty Diagnoses / Procedures Referred By Contgisela t Referred To Contact [facility] Diagnoses Encounter for screening mammogram for breast cancer Procedures [facility] SCREENING SCREENING MAMMOGRAPHY BI 2-VIEW BREAST INC CAD Sarah Rogers MD [address] [place] [address] [facility] [address] [place] [address] Referral ID Status Reason Start Date Expiration Date Visits Requested Visits Authorized [id number] Pending Review Auto-Generat ed Referral 04/14/2023 05/13/2024 1 1 [facility] Summary Purpose Family History No Family History Records FoundNo Family History Records FoundNo Family History Records Found Advance Directives No Advanced Directives Records FoundNo Advanced Directives Records FoundNo Advanced Directives Records Found Additional Source Comments INFORMATION SOURCE (unrecogn ized section and content) DATE CREATED AUTHOR AUTHOR'S ORGANIZ ATION 09/28/2023 [facility] DATE CREATED AUTHOR AUTHOR'S ORGANIZ ATION 11/27/2023 [facility] Source Comments (unrecognize d section and content) In the event this informatio n is protected by the Federal Confidentiality of Alcohol and Drug Abuse Patient Records regulations: The Federal rules restrict any use of the information to criminally investigate or prosecute any alcohol or drug abuse patient.[facility] this information is protected by the Federal Confidentiality of Alcohol and Drug Abuse Patient Records regulations: The Federal rules restrict any use of the information to criminally investigate or prosecute any alcohol or drug abuse patient.[facility] [place]In the event this information is protected by the Federal Confidentiality of Alcohol and Drug Abuse Patient Records regulations: The Federal rules restrict any use of the information to criminally investigate or prosecute any alcohol or drug abuse patient.[facility] [place]In the event this information is protected by the Federal Confidentiality of Alcohol and Drug Abuse Patient Records regulations: The Federal rules restrict any use of the information to criminally investigate or prosecute any alcohol or drug abuse patient.[facility] [place]In the event this information is protected by the Federal Confidentiality of Alcohol and Drug Abuse Patient Records regulations: The Federal rules restrict any use of the information to criminally investigate or prosecute any alcohol or drug abuse patient.[facility] [place]In the event this information is protected by the Federal Confidentiality of Alcohol and Drug Abuse Patient Records regulations: The Federal rules restrict any use of the information to criminally investigate or prosecute any alcohol or drug abuse patient.[facility] [place]In the event this information is protected by the Federal Confidentiality of Alcohol and Drug Abuse Patient Records regulations: The Federal rules restrict any use of the information to criminally investigate or prosecute any alcohol or drug abuse patient.[facility] [place]In the event this information is protected by the Federal Confidentiality of Alcohol and Drug Abuse Patient Records regulations: The Federal rules restrict any use of the information to criminally investigate or prosecute any alcohol or drug abuse patient.[facility] [place]In the event this information is protected by the Federal Confidentiality of Alcohol and Drug Abuse Patient Records regulations: The Federal rules restrict any use of the information to criminally investigate or prosecute any alcohol or drug abuse patient.[facility] [place]In the event this information is protected by the Federal Confidentiality of Alcohol and Drug Abuse Patient Records regulations: The Federal rules restrict any use of the information to criminally investigate or prosecute any alcohol or drug abuse patient.[facility] [place]In the event this information is protected by the Federal Confidentiality of Alcohol and Drug Abuse Patient Records regulations: The Federal rules restrict any use of the information to criminally investigate or prosecute any alcohol or drug abuse patient.[facility] [place]In the event this information is protected by the Federal Confidentiality of Alcohol and Drug Abuse Patient Records regulations: The Federal rules restrict any use of the information to criminally investigate or prosecute any alcohol or drug abuse patient.[facility] [place]In the event this information is protected by the Federal Confidentiality of Alcohol and Drug Abuse Patient Records regulations: The Federal rules restrict any use of the information to criminally investigate or prosecute any alcohol or drug abuse patient.[facility] [place]In the event this information is protected by the Federal Confidentiality of Alcohol and Drug Abuse Patient Records regulations: The Federal rules restrict any use of the information to criminally investigate or prosecute any alcohol or drug abuse patient.[facility] [place]In the event this information is protected by the Federal Confidentiality of Alcohol and Drug Abuse Patient Records regulations: The Federal rules restrict any use of the information to criminally investigate or prosecute any alcohol or drug abuse patient.[facility] [place]In the event this information is protected by the Federal Confidentiality of Alcohol and Drug Abuse Patient Records regulations: The Federal rules restrict any use of the information to criminally investigate or prosecute any alcohol or drug abuse patient.[facility] [place]In the event this information is protected by the Federal Confidentiality of Alcohol and Drug Abuse Patient Records regulations: The Federal rules restrict any use of the information to criminally investigate or prosecute any alcohol or drug abuse patient.[facility] [place]In the event this information is protected by the Federal Confidentiality of Alcohol and Drug Abuse Patient Records regulations: The Federal rules restrict any use of the information to criminally investigate or prosecute any alcohol or drug abuse patient.[facility] [place] Reason for Visit (unrecogniz ed section and content) Reason Comments Refill Request Reason Comments Medication Question Reason Comments Established Patient 6 month follow up-la bs Reason Comments Follow Up [facility] fredo placed 0 05/20/2022 located top [...] Care Teams (unrecognized sec tion and content) Test Conductor Relationship Specialty Start Date End Date Sarah Rogers MD [address] [place], [place] [id number] PCP - General Internal Medicine 04/16/14 Test Conductor Relationship Specialty Start Date End Date Sarah Rogers MD [address] [place], [place] [id number] PCP - General Internal Medicine 04/16/14 Test Conductor Relationship Specialty Start Date End Date Sarah Rogers MD [address] [place] [address] PCP - General Internal Medicine 04/16/14 Test Conductor Relationship Specialty Start Date End Date Sarah Rogers MD [address] [place] [address] PCP - General Internal Medicine 04/16/14 Test Conductor Relationship Specialty Start Date End Date Sarah Rogers MD [address] [place] [address] PCP - General Internal Medicine 04/16/14 Test Conductor Relationship Specialty Start Date End Date Sarah Rogers MD [address] [place] [address] PCP - General Internal Medicine 04/16/14 Test Conductor Relationship Specialty Start Date End Date Sarah Rogres MD [address] [place] [address] PCP - General Internal Medicine 04/16/14 Test Conductor Relationship Specialty Start Date End Date Sarah Rogers MD [address] [place] [address] PCP - General Internal Medicine 04/16/14 Test Conductor Relationship Specialty Start Date End Date Sarah Rogers MD [address] [place] [address] PCP - General Internal Medicine 04/16/14 Test Conductor Relationship Specialty Start Date End Date Sarah Rogers MD [address] [place] [address] PCP - General Internal Medicine 04/16/14 Test Conductor Relationship Specialty Start Date End Date Sarah Rogers MD [address] [place] [address] PCP - General Internal Medicine 04/16/14 Test Conductor Relationship Specialty Start Date End Date Sarah Rogers MD [address] [place], [place] [address] PCP - General 08/18/18 Test Conductor Relationship Specialty Start Date End Date Sarah Rogers MD [address] [place], [place] [id number] PCP - General Internal Medicine 04/16/14 Test Conductor Relationship Specialty Start Date End Date Sarah Rogers MD [address] [place], [place] [id number] PCP - General 08/18/18 Test Conductor Relationship Specialty Start Date End Date Tila Sandoval DO [address] [place] [id number] PCP - General Internal Medicine 11/25/23 11/25/23 [...] BE BASED ON THE PRIMARY CLINICAL RECORDS. [facility] [employer] [facility]. provides no warranty or guarantee of the accuracy or completeness of information in this document.
--- OUTSIDE RECORDS SUMMARY | 2023-12-05 16:23 | XMS RPT_ITS | CCD ---
Author Name Unknown Address [address] [place] [address] Organization [facility] Care Team Providers Care Securities Underwriter Name Role Phone PROVIDER, UNKNOWN Unavailable Unavailable PROVIDER, UNKNOWN Unavailable Unavailable NASIM BREWER Unavailable Unavailable Sarah Rogers MD Primary Care Provider [phone] Sarah Rogers MD Primary Care Provider Sarah Rogers MD Primary Care Provider Tila Sandoval DO Primary Care Provider KHARI MARTIN Attending Unavailable SARAH ROGERS Primary Care Unavailable Allergies Allergy Classification Reported Allergen(s) Allergy Type Date of Onset Reaction(s) Facility (20 sources) Ibuprofen Drug Allergy 07-17-20 13 Swelling, Hives [facility] Work Phone: [phone] (4 sources) Penicillins Drug Allergy 04-16-20 14 Swelling [facility] Work Phone: [phone] (20 sources) Sulfamethoxazole / Trimethoprim Drug Allergy 07-17-20 13 Rash, Hives [facility] Work Phone: [phone] (14 sources) Penicillins Drug Allergy 04-16-20 14 Swelling [facility] Work Phone: [phone] (2 sources) Penicillins Drug Allergy 07-17-20 13 Hives, Swelling [facility] (2 sources) Sulfamethoxazole Allergy to substance 05-14-20 19 [facility] (2 sources) Trimethoprim Drug Allergy 05-14-20 19 [facility] Medications Current Medications Medication Drug Class(es) Dates [...] (3 sources) Patient encounter status; Translations: [Other long filler cigar roller machine (current) drug therapy] Episodic Other screening for [...] 175.3 cm Khari Martin PA-C Work Phone: [employer] 11-04-2023 09:03-0500 Body mass index (BMI) [Ratio] 32.49 kg/m2 Khari Martin PA-C Work Phone: [employer] 11-04-2023 09:03-0500 Body temperature 97 [degF] Khari Martin PA-C Work Phone: [employer] 11-04-2023 09:03-0500 Body weight 99.79 kg Khari Martin PA-C Work Phone: [employer] 11-04-2023 09:03-0500 Diastolic blood pressure 85 mm[Hg] Khari Martin PA-C Work Phone: [employer] 11-04-2023 09:03-0500 Heart rate 77 /min Khari Martin PA-C Work Phone: [facility] 11-04-2023 09:03-0500 SaO2% (BldA) [Mass fraction] 97 % Khari Martin PA-C Work Phone: [facility] 11-04-2023 09:03-0500 Systolic blood pressure 120 mm[Hg] Khari Martin PA-C Work Phone: [facility] 09-25-2022 15:17-0500 Body height 172.7 cm Sarah Rogers MD Work Phone: [facility] 09-25-2022 15:17-0500 Body temperature 98.4 [degF] Sarah Rogers MD Work Phone: [facility] 09-25-2022 15:17-0500 Body weight 95.71 kg Sarah Rogers MD Work Phone: [facility] 09-25-2022 15:17-0500 Diastolic blood pressure 60 mm[Hg] Sarah Rogers MD Work Phone: [facility] 09-25-2022 15:17-0500 Heart rate 83 /min Sarah Rogers MD Work Phone: [facility] 09-25-2022 15:17-0500 Respiratory rate 12 /min Sarah Rogers MD Work Phone: [facility] 09-25-2022 15:17-0500 SaO2% (BldA) [Mass fraction] 99 % Sarah Rogers MD Work Phone: [facility] 09-25-2022 15:17-0500 Systolic blood pressure 118 mm[Hg] Sarah Rogers MD Work Phone: [facility] 05-29-2022 15:27-0400 Body temperature 97.39 [degF] Trudy Yeboah PULPIT OPERATOR.CIGARETTE FILTER INSPECTOR Work Phone: [facility] 05-29-2022 15:27-0400 Body weight 95.8 kg Trudy Yeboah PULPIT OPERATOR.CIGARETTE FILTER INSPECTOR Work Phone: [facility] 05-29-2022 15:27-0400 Diastolic blood pressure 74 mm[Hg] Trudy Yeboah PULPIT OPERATOR.CIGARETTE FILTER INSPECTOR Work Phone: [facility] 05-29-2022 15:27-0400 Heart rate 78 /min Trudy Yeboah PULPIT OPERATOR.CIGARETTE FILTER INSPECTOR Work Phone: [facility] 05-29-2022 15:27-0400 Respiratory rate 18 /min Trudy Yeboah PULPIT OPERATOR.CIGARETTE FILTER INSPECTOR Work Phone: [facility] 05-29-2022 15:27-0400 SaO2% (BldA) [Mass fraction] 97 % Trudy Yeboah PULPIT OPERATOR.CIGARETTE FILTER INSPECTOR Work Phone: [facility] 05-29-2022 15:27-0400 Systolic blood pressure 122 mm[Hg] Trudy Yebaoh PULPIT OPERATOR.CIGARETTE FILTER INSPECTOR Work Phone: [facility] 04-28-2022 15:52-0400 Body height 172.7 cm Sarah Rogers MD Work Phone: [facility] 04-28-2022 15:52-0400 Body temperature 98.29 [degF] Sarah Rogers MD Work Phone: [facility] 04-28-2022 15:52-0400 Body weight 96.16 kg Sarah Rogers MD Work Phone: [facility] 04-28-2022 15:52-0400 Diastolic blood pressure 72 mm[Hg] Sarah Rogers MD Work Phone: [facility] 04-28-2022 15:52-0400 Heart rate 72 /min Sarah Rogers MD Work Phone: [facility] 04-28-2022 15:52-0400 Respiratory rate 12 /min Sarah Rogers MD Work Phone: [facility] 04-28-2022 15:52-0400 SaO2% (BldA) [Mass fraction] 97 % Sarah Rogers MD Work Phone: [facility] 04-28-2022 15:52-0400 Systolic blood pressure 130 mm[Hg] Sarah Rogers MD Work Phone: [facility] Encounters Encounter Date Encounter Type Care Provider Facility Start: 11-25-2023 Refill Khari Latif Work Phone: [facility] Procedures Date Procedure Procedure [...] panel - Serum or Plasma Lipid Screening [facility] Start: 08-07-2026 Lipid panel Lipid Screening [facility] Start: 08-07-2026 LIPID SCREEN LIPID SCREEN [facility] Start: 09-25-2025 DIABETES SCREEN DIABETES SCREEN [facility] Start: 09-25-2025 Diabetes Screening Diabetes Screening [facility] Start: 04-28-2025 DIABETES SCREEN DIABETES SCREEN [facility] Start: 11-04-2024 Depression Screening Depression Screening [facility] Start: 11-04-2024 Diabetes mellitus screening Diabetes Screening [facility] Start: 08-07-2024 DIABETES SCREEN DIABETES SCREEN [facility] Start: 04-16-2024 DTaP/Tdap/Td Vaccines (2 - Td or Tdap) DTaP/Tdap/Td Vaccines (2 - Td or Tdap) [facility] Start: 04-16-2024 Urine microalbumin profile [facility] Start: 01-26-2024 End: 01-26-2024 Patient encounter procedure 01/26/2024 10:20 AM EDT Office Visit [facility] [address] [place] [address] Tila Sandoval DO [address] [place] [address] [facility] Start: 11-04-2023 End: 11-02-2024 CBC W Auto Differential panel - Blood CBC auto differential Lab Routine Screening for deficiency anemia Expected: 11/04/2023 (Approximate), Expires: 11/02/2024 [facility] Immunizations Immunization Date Immunization Notes Care Provider Fa cility 12-29-2018 influenza virus vaccine, unspecified formulation Prema Aguilar PA-C Work Phone: [facility] 04-16-2014 tetanus toxoid, redu maria r diphtheria toxoid, and acellular pertussis vaccine, adsorbed Sarah Rogers MD Work Phone: [facility] Work Phone: Payers Date Payer Category Payer Unknown 2021 Unknown [id number] 2003 Medicaid [place] [employer] [employer] [id number] 2003-Present [phone] [place] [address] Medicaid [id number] 2003 Medicaid [id number] Social History Date Type Detail Facility Start: 01-27-2018 End: 09-25-2022 Tobacco smoking status NDIS Never smoked tobacco [facility] Work Phone: Start: 10-28-2021 End: 11-04-2023 Alcohol intake Current non-drinker of alcohol (finding) [facility] Start: 1960 Sex Assigned At Not on file [facility] Start: 01-03-2022 End: 09-25-2022 Exposure to SARS-CoV-2 (event) Not sure [facility] Work Phone: Start: 01-27-2018 End: 09-25-2022 Tobacco use and exposure Smokeless tobacco non-user [facility] Work Phone: Start: 09-25-2022 End: 11-04-2023 History of Social function [facility] Start: 09-25-2022 End: 11-04-2023 Tobacco use panel [facility] Adult Depression Screening Assessment 0 [facility] Has the [employer], [employer], [employer], or water company threatened to shut off services in your home in past 12Mo No [facility] Do you belong to any clubs or organizations such as islam groups, unions, fraternal or athletic groups, or school groups? Yes [facility] Are you now , , , , never or living with a partner? [facility] How often to you hav e a drink containing alcohol? Monthly or less [facility] How many standard dr inks containing alcohol do you have on a typical day? 1 or 2 [facility] How often do you hav e 6 or more drinks on 1 occasion? Never [facility] Do you feel stress - tense, restless, nervous, or anxious, or unable to sleep at night because your mind is troubled all the time - these days [OSQ] Only a little [facility] (I/We) worried wheth er (my/our) food would run out before (I/we) got money to buy more. Never true [facility] Start: 11-04-2023 Alcohol Comment social rare [facility] Start: 1960 Sex Assigned At Female [facility] Start: 11-04-2023 Gender identity Identifies as female gender (finding) [facility] Start: 11-04-2023 Sexual orientation Heterosexual (finding) [facility] Clinical Notes 01-24-2022 to 11-25-2023 Telephone Encounter - Tila Sandoval DO - 11/25/2023 1:10 PM ESTTelephone Encounter - Tila Sandoval DO - 11/25/2023 1:10 PM ESTTelephone Encounter - Mary Collado - 11/25/2023 11:29 AM EST Note Date & Type Note Facility 11-25-2023 Telephone encounter Note I have never seen this patient before. [employer] Work Phone: 11-25-2023 Miscellaneous Notes I have [...] the medication: No documented in this encounter [facility] 11-25-2023 Telephone encounter Note Medication name: PHENobarbital [...] prior to picking up the medication: No [facility] 11-04-2023 Evaluation + Plan note Associated Problem(s): Epilepsy (HCC) - Chronic stable has been previously seen by neurology and full previous workup and continues on phenobarb and Dilantin. There is been no changes to her dosing regimen or medications we will recheck those levels today and authorize medication refills of Dilantin and phenobarbital [facility] 11-04-2023 Miscellaneous Notes Associated Problem(s): Epilepsy (HCC) [...] sugar and prediabetes. documented in this encounter [facility] 11-04-2023 Evaluation + Plan note Associated Problem(s): HTN (hypertension) - Chronic and stable patient is to continue on hydrochlorothiazide 12.5 mg daily although reportedly ran out of that and has been off it can consider discontinuing hydrochlorothiazide. - Patient is to continue amlodipine 5 mg daily. [facility] 11-04-2023 Evaluation + Plan note Associated Problem(s): Hyperlipidemia - Chronic and previously unstable with an LDL checked 2 years ago was 111 for now we will continue on Zocor 40 mg daily and reassess LDL level. [facility] 11-04-2023 Evaluation + Plan note Associated Problem(s): Hyperglycemia - Chronic and stable previous elevated sugar with family history of diabetes and patient has a personal history of elevated blood sugar and prediabetes. [facility] 11-04-2023 History of Present illness Narrative Images from the original note were not included. [facility] [address] [place] [address] [address] [facility] [address] Dept: [phone] Dept Loc: [phone] Visit type: New Patient Reason for Visit: [...] tablet (5 mg) by mouth daily., [facility] 11/04/2023, Normal - hydroCHLOROthiazide (Microzide) 12.5 MG capsule; Take 1 capsule (12.5 mg) by mouth daily., [facility] 11/04/2023, Normal 5. Mixed hyperlipidemia Assessment & Plan: - Chronic and previously unstable with an LDL checked 2 years ago was 111 for now we will continue on Zocor 40 mg daily and reassess LDL level. Orders: - simvastatin (Zocor) 40 MG tablet; Take 1 tablet (40 mg) by mouth Nightly., [facility] 11/04/2023, Normal Follow up if symptoms worsen or fail to improve, for Next scheduled follow-up. Subjective HPI this is a 63-year-old female with underlying history of hypertension, epilepsy, 40 years, and hyperlipidemia who contacted the [facility] on 10/23 for concerns of regarding seizures and needing her medications for seizures. Patient reported that she does not have a primary care physician and needs her medications. Patient was ultimately instructed by the [facility] to seek evaluation in the emergency room. As the patient was reporting having breakthrough seizures at least 2 times that day. Review of the records does show that the patient was followed up with [facility] and she had Dilantin and phenobarb [...] prior to signing but minor errors in last ironer may have occurred. documented in this encounter [facility] 10-25-[address] Fitzgerald called and stated he will send Dilantin 100 mg ER capsule and Phenobarbital 9.72 mg scripts for patient's seizures to patient's preferred pharmacy. Patient called and notified. Patient called stating she need refill of phenobarbital medication for her seizures. Patient stated she took the last dose this morning. Dr. Fitzgerald paged. documented in this encounter [facility] 10-23-2023 Telephone encounter Note S: Patient spoke with CAC nurse regarding seizures B: Onset of symptoms/concern ongoing since 2021 A: Patient is a new patient at [facility] and has been experiencing seizures. She [...] occurs on the same day Protocols used: [id number] [facility] 10-23-2023 Miscellaneous Notes S: Patient spoke with [facility] nurse regarding seizures B: Onset of symptoms/concern ongoing since 2021 A: Patient is a new patient at [facility] and has been experiencing seizures. She [...] occurs on the same day Protocols used: [id number] documented in this encounter [facility] 09-26-2023 Miscellaneous Notes Note out of network and short term refills sent Pt's previous two referrals for financial clearance have been denied. Pt's insurance is out of network and pt will need to either find another provider who takes [place] or change to another insurance that CC [...] and be seen. Waiting on referral # [id number] to be authorized to schedule appt. Pt needs appt scheduled. Prema Aguilar PA-C documented in this encounter [facility] 06-18-2023 Miscellaneous Notes Spoke with the patient [...] patient. Althea Lynn documented in this encounter [facility] 04-25-2023 Miscellaneous Notes Patient over due for follow up. Thank you Roseanna Connor APRN.CIGARETTE FILTER INSPECTOR Patient has been identified by name and [...] advise. Jodee Lynn documented in this encounter [facility] 04-14-2023 Note Patient Outreach (IN TMMN) REENA TORRES ([id number]) 1960 F Date Time Provider Department 04/14/23 SARAH ROGERS During your visit today, we recorded the following information about you: Allergies As of Date: 04/14/2023 Noted Allergy Reaction IBUPROFEN 04/16/2014 7 - Swelling PENICILLINS 04/16/2014 7 - Swelling SEPTRA (SULFAMETHOXAZOLE-TRIMETHO* 014 2 - Rash Date Reviewed: 09/25/2022 Reviewed by: Caire Toribio LPN - Fully Assessed Visit Diagnosis:Encounter for screening mammogram for breast cancer [Z12.31] Order(s):[facility] SCREENING [[id number]] Order #: [id number] FUTURE Prescriptions as of 04/19/2023 - PHENobarbital [...] Encounter Status:Closed by EPIC, PRODUSER on 04/19/23 [facility] 04-14-2023 Miscellaneous Notes Letter mailed [...] Prema Kelly Pss documented in this encounter [facility] 03-31-2023 Miscellaneous Notes Pt notified. Saida Luna [...] lab work done. documented in this encounter [facility] 12-15-2022 Note Patient Outreach (IN TMMN) REENA TORRES ([id number]) 1960 F Date Time Provider Department 12/15/22 [...] than 130 mg/dL [E78.5] Order(s):SCHEDULE LAB TESTING [[id number]] Order #: [id number] FUTURE BASIC METABOLIC PNL [SQBMP] Order #: [id number] FUTURE LIPID PANEL BASIC [SQLIPB] Order #: [id number] FUTURE Prescriptions as of 12/18/2022 - PHENobarbital [...] Encounter Status:Closed by EPIC, PRODUSER on 12/18/22 [facility] 09-30-2022 Miscellaneous Notes Left message [...] Sarah Rogers MD documented in this encounter [facility] 09-25-2022 History of Present illness Narrative Reason [...] Laterality Date COLONOSCOPY EGD 12/08/12 Dr.Essam Woodall [place] ENDOSCOPY PROC HAND/FINGER SURGERY UNLISTED trigger finger, [...] Sarah Rogers MD documented in this encounter [facility] 09-18-2022 Miscellaneous Notes Patient has been identified [...] Carie Toribio LPN documented in this encounter [facility] 05-29-2022 History of Present illness Narrative Images from the original note were not included. This note was created using [employer]. Sukhdeep Torres is a 61 year old [...] history is provided by the patient. No speech language pathology assistant was used. Wound Check This is a [...] Laterality Date COLONOSCOPY EGD 12/08/12 Dr.Essam Woodall [place], [place] ENDOSCOPY PROC HAND/FINGER SURGERY UNLISTED trigger [...] Trudy Yeboah APRN.[facility]ALLORY documented in this encounter [facility] 04-28-2022 History of Present illness Narrative Reason [...] Procedure Laterality Date COLONOSCOPY EGD 12/08[place]12 Dr[place] HAND/FINGER SURGERY UNLISTED trigger [...] Sarah Rogers MD documented in this encounter [facility] 03-26-2022 Miscellaneous Notes Last seen pcp 10/28/21 Next appt with pcp 04/28/22. Patient calling in refills, I was able to fill all medications from her medication list however she has asked for mediation I did not find. Refill to go to [facility] Phenobarbital 97.2 mg tablet takes twice daily Please call patient when refill is sent to the pharmacy at [phone] Electronically signed by Virgen Ponce [facility] at 03/26/2022 10:40 AM EDTdocumented in this encounter [facility] 03-26-2022 Miscellaneous Notes Last see pcp 10/28/21. [...] Virgenjohn Ponce [employer] documented in this encounter [facility] 01-24-2022 Miscellaneous Notes Pt is requesting a [...] desk for review. Please get forms and [facility] and place on [facility] or Dr. Rogers's desk to review. Thank you Roseanna Connor APRN.CNP Patient calling from our parking lot, she has leave of absence forms that need completed and faxed back before 6 pm . She works at [employer] and had UTI, could not work due to urinating to frequently, left work from 01/09 is to return to work on 01/15 had lower abdominal pain, was at [facility]. Patient is dropping forms off in main lobby right now. Please advise documented in this encounter [facility] Diagnosis Seizures (HCC) Other convulsions [facility] Diagnosis Prediabetes- Primary Other abnormal glucose Elevated blood sugar Other abnormal glucose Primary hypertension Unspecified essential hypertension Hyperlipidemia with target low density lipoprotein (LDL) cholesterol less than 130 mg/dL [facility] Diagnosis Visit for suture removal- Primary Encounter for removal of sutures Visit for wound check Encounter for other specified aftercare [facility] Diagnosis Seizures (HCC) Other convulsions [facility] Seizures (HCC)- Primary Other convulsions Primary hypertension Unspecified essential hypertension Hyperlipidemia with target low density lipoprotein (LDL) cholesterol less than 130 mg/dL [facility] Diagnosis Hypertension Unspecified essential hypertension Hyperlipidemia with target low density lipoprotein (LDL) cholesterol less than 130 mg/dL [facility] Diagnosis Annual physical exam- Primary Routine general medical examination at a health care facility GERD with esophagitis Seizures (HCC) Other convulsions Hypertension, unspecified type Hyperlipidemia with target low density lipoprotein (LDL) cholesterol less than 130 mg/dL Prediabetes Other abnormal glucose Medication management Encounter for long-term (current) use of other medications [facility] Diagnosis Encounter for screening mammogram for breast cancer [facility] Diagnosis Seizures (HCC) Other convulsions [facility] Diagnosis Seizures (HCC) Other convulsions [facility] Diagnosis Hyperglycemia- Primary Other abnormal glucose Intractable epilepsy without status epilepticus, unspecified epilepsy type (HCC) Screening for deficiency anemia Screening for other and unspecified deficiency anemia Primary hypertension Unspecified essential hypertension Mixed hyperlipidemia [facility] Diagnosis Nonintractable epilepsy without status epilepticus, unspecified epilepsy type (HCC)- Primary [facility] Diagnostic Procedure Only (Routine) - Pending Review Specialty Diagnoses / Procedures Referred By Contgisela t Referred To Contact [facility] Diagnoses Encounter for screening mammogram for breast cancer Procedures [facility] SCREENING SCREENING MAMMOGRAPHY BI 2-VIEW BREAST INC CAD Sarah Rogers MD [address] [place] [address] [facility] [address] [place] [address] Referral ID Status Reason Start Date Expiration Date Visits Requested Visits Authorized [id number] Pending Review Auto-Generat ed Referral 04/14/2023 05/13/2024 1 1 [facility] Summary Purpose Family History No Family History Records FoundNo Family History Records FoundNo Family History Records Found Advance Directives No Advanced Directives Records FoundNo Advanced Directives Records FoundNo Advanced Directives Records Found Additional Source Comments INFORMATION SOURCE (unrecogn ized section and content) DATE CREATED AUTHOR AUTHOR'S ORGANIZ ATION 09/28/2023 [facility] DATE CREATED AUTHOR AUTHOR'S ORGANIZ ATION 11/27/2023 [facility] Source Comments (unrecognize d section and content) In the event this informatio n is protected by the Federal Confidentiality of Alcohol and Drug Abuse Patient Records regulations: The Federal rules restrict any use of the information to criminally investigate or prosecute any alcohol or drug abuse patient.[facility] the event this information is protected by the Federal Confidentiality of Alcohol and Drug Abuse Patient Records regulations: The Federal rules restrict any use of the information to criminally investigate or prosecute any alcohol or drug abuse patient.[facility] event this information is protected by the Federal Confidentiality of Alcohol and Drug Abuse Patient Records regulations: The Federal rules restrict any use of the information to criminally investigate or prosecute any alcohol or drug abuse patient.[facility] Center[facility] the event this information is protected by the Federal Confidentiality of Alcohol and Drug Abuse Patient Records regulations: The Federal rules restrict any use of the information to criminally investigate or prosecute any alcohol or drug abuse patient.[facility] CenterIn the event this information is protected by the Federal Confidentiality of Alcohol and Drug Abuse Patient Records regulations: The Federal rules restrict any use of the information to criminally investigate or prosecute any alcohol or drug abuse patient.[facility] CenterIn the event this information is protected by the Federal Confidentiality of Alcohol and Drug Abuse Patient Records regulations: The Federal rules restrict any use of the information to criminally investigate or prosecute any alcohol or drug abuse patient.[facility] CenterIn the event this information is protected by the Federal Confidentiality of Alcohol and Drug Abuse Patient Records regulations: The Federal rules restrict any use of the information to criminally investigate or prosecute any alcohol or drug abuse patient.[facility] CenterIn the event this information is protected by the Federal Confidentiality of Alcohol and Drug Abuse Patient Records regulations: The Federal rules restrict any use of the information to criminally investigate or prosecute any alcohol or drug abuse patient.[facility] CenterIn the event this information is protected by the Federal Confidentiality of Alcohol and Drug Abuse Patient Records regulations: The Federal rules restrict any use of the information to criminally investigate or prosecute any alcohol or drug abuse patient.[facility] CenterIn the event this information is protected by the Federal Confidentiality of Alcohol and Drug Abuse Patient Records regulations: The Federal rules restrict any use of the information to criminally investigate or prosecute any alcohol or drug abuse patient.[facility] CenterIn the event this information is protected by the Federal Confidentiality of Alcohol and Drug Abuse Patient Records regulations: The Federal rules restrict any use of the information to criminally investigate or prosecute any alcohol or drug abuse patient.[facility] CenterIn the event this information is protected by the Federal Confidentiality of Alcohol and Drug Abuse Patient Records regulations: The Federal rules restrict any use of the information to criminally investigate or prosecute any alcohol or drug abuse patient.[facility] CenterIn the event this information is protected by the Federal Confidentiality of Alcohol and Drug Abuse Patient Records regulations: The Federal rules restrict any use of the information to criminally investigate or prosecute any alcohol or drug abuse patient.[facility] CenterIn the event this information is protected by the Federal Confidentiality of Alcohol and Drug Abuse Patient Records regulations: The Federal rules restrict any use of the information to criminally investigate or prosecute any alcohol or drug abuse patient.[facility] CenterIn the event this information is protected by the Federal Confidentiality of Alcohol and Drug Abuse Patient Records regulations: The Federal rules restrict any use of the information to criminally investigate or prosecute any alcohol or drug abuse patient.[facility] CenterIn the event this information is protected by the Federal Confidentiality of Alcohol and Drug Abuse Patient Records regulations: The Federal rules restrict any use of the information to criminally investigate or prosecute any alcohol or drug abuse patient.[facility] CenterIn the event this information is protected by the Federal Confidentiality of Alcohol and Drug Abuse Patient Records regulations: The Federal rules restrict any use of the information to criminally investigate or prosecute any alcohol or drug abuse patient.[facility] CenterIn the event this information is protected by the Federal Confidentiality of Alcohol and Drug Abuse Patient Records regulations: The Federal rules restrict any use of the information to criminally investigate or prosecute any alcohol or drug abuse patient.[facility] Reason for Visit (unrecogniz ed section and content) Reason Comments Refill Request Reason Comments Medication Question Reason Comments Established Patient 6 month follow up-la bs Reason Comments Follow Up [facility] fredo placed 0 05/20/2022 located top [...] Care Teams (unrecognized sec tion and content) Securities Underwriter Relationship Specialty Start Date End Date Sarah Rogers MD [address], [place] [id number] PCP - General Internal Medicine 04/16/14 Securities Underwriter Relationship Specialty Start Date End Date Sarah Rogers MD [address], [place] [id number] PCP - General Internal Medicine 04/16/14 Securities Underwriter Relationship Specialty Start Date End Date Sarah Rogers MD [address] [place] [address] PCP - General Internal Medicine 04/16/14 Securities Underwriter Relationship Specialty Start Date End Date Sarah Rogers MD [address] [facility] [place] [address] PCP - General Internal Medicine 04/16/14 Securities Underwriter Relationship Specialty Start Date End Date Sarah Rogers MD [address] [facility] [place] [address] PCP - General Internal Medicine 04/16/14 Securities Underwriter Relationship Specialty Start Date End Date Sarah Rogers MD [address] [facility] [place] [address] PCP - General Internal Medicine 04/16/14 Securities Underwriter Relationship Specialty Start Date End Date Sarah Rogers MD [address] [facility] [place] [address] PCP - General Internal Medicine 04/16/14 Securities Underwriter Relationship Specialty Start Date End Date Sarah Roegrs MD [address] [facility] [place] [address] PCP - General Internal Medicine 04/16/14 Securities Underwriter Relationship Specialty Start Date End Date Sarah Rogers MD [address] [facility] [place] [address] PCP - General Internal Medicine 04/16/14 Securities Underwriter Relationship Specialty Start Date End Date Sarah Rogers MD [address] [facility] [place] [address] PCP - General Internal Medicine 04/16/14 Securities Underwriter Relationship Specialty Start Date End Date Sarah Rogers MD [address] [facility] [place] [address] PCP - General Internal Medicine 04/16/14 Securities Underwriter Relationship Specialty Start Date End Date Sarah Rogers MD [address], [place] [id number] PCP - General 08/18/18 Securities Underwriter Relationship Specialty Start Date End Date Sarah Rogers MD [address], [place] [id number] PCP - General Internal Medicine 04/16/14 Securities Underwriter Relationship Specialty Start Date End Date Sarah Rogers MD [address], [place] [id number] PCP - General 08/18/18 Securities Underwriter Relationship Specialty Start Date End Date Tila Sandoval DO [address] [place] [id number] PCP - General Internal Medicine 11/25/23 11/25/23 [...] BE BASED ON THE PRIMARY CLINICAL RECORDS. [facility]. provides no warranty or guarantee of the accuracy or completeness of information in this document.
[2023-12-05 16:58] VITALS: BMI 27.9
[2023-12-05 17:06] VITALS: BP 109/73; PULSE 71; RESP 18; TEMP 36.4; O2SAT 100
[2023-12-05] MEDS: Insulin Lispro 100 UNIT/ML INSULN.PEN SC ×2 (17:27→21:29)
[2023-12-05 17:36] LABS: Bedside Glucose 348 mg/dL (74-106)
[2023-12-05] MEDS: Ciprofloxacin 500 MG Tablet PO (21:24)
[2023-12-05] MEDS: Phenobarbital 32.4 MG Tablet 97.2000000000000028 MG PO (21:24)
[2023-12-05 21:37] VITALS: BP 123/68; PULSE 86; RESP 16; TEMP 37.1; O2SAT 97
[2023-12-05 22:17] LABS: Bedside Glucose 396 mg/dL (74-106)
[2023-12-05] MEDS: Phenytoin Na 100 MG Capsule 200 MG PO (23:39)
[2023-12-06 03:59] VITALS: BP 102/59; PULSE 72; RESP 16; TEMP 36.8; O2SAT 96
[2023-12-06] MEDS: 0.9% Normal Saline (1000mL) 1,000 ML 150 ML IV (04:02)
[2023-12-06] MEDS: Insulin Lispro 100 UNIT/ML INSULN.PEN SC ×5 (04:07→20:26)
[2023-12-06 06:17] LABS: Absolute Lymphocyte Count 2.19 X10^3/uL (0.83-4.51); Absolute Neutrophil Count 4.7 X10^3/uL (2.0-7.7); Basophil# 0.01 X10^3/uL; Basophil% 0.1 % (0-1); Eosinophil# 0.11 X10^3/uL; Eosinophils% 1.4 % (0-5); Hematocrit 35.2 % (37-47); Hemoglobin 12.1 g/dL (12.0-15.0); Lymphocyte # 2.19 X10^3/ul (0.83-4.51); Lymphocyte % 28.3 % (19-41); Mean Corp Hgb Conc 34.4 g/dL (32-36); Mean Corpuscular Volume 87.1 fL (81-99); Mean Platelet Vol. 10.9 fl (6.2-12.0); Monocyte# 0.74 X10^3/uL; Monocyte% 9.6 % (0-10); NRBC Flagged by Analyzer 0 % (0-5); Neutrophil # 4.66 X10^3/uL (2.7-7.7); Neutrophil % 60.2 % (47-70); Platelet Count 239 K/mm3 (150-450); RBC Distribution Width CV 12.6 % (11.6-14.6); RBC Distribution Width SD 39.9 fl (35.1-43.9); Red Blood Count 4.04 M/mm3 (4.2-5.4); White Blood Count 7.7 K/mm3 (4.4-11.0)
[2023-12-06 06:41] LABS: Bedside Glucose 257 mg/dL (74-106)
[2023-12-06 06:51] LABS: Bedside Glucose 264 mg/dL (74-106)
[2023-12-06 07:09] LABS: ALB/GLOB Ratio 0.8 RATIO (0.9-2.4); AST(SGOT) 11 U/L (15-37); Alanine Aminotransfer ALT/SGPT 20 U/L (13-56); Albumin, Serum 2.9 g/dL (3.2-5.0); Alkaline Phosphatase 217 U/L (45-117); Anion Gap 5 (5-15); BUN 15 mg/dL (7-18); BUN/Creat Ratio 29.8 RATIO (10-20); Bilirubin, Direct 0.16 mg/dL (0.00-0.30); Calcium,Total 8.5 mg/dL (8.5-10.1); Chloride 104 mmol/L (98-107); EST Glomerular Filtration Rate 132 mL/min (>60); Est Glom Filt Rate - Afr Amer 159 mL/min (>60); Estimated Creatinine Clearance 145.12 ml/min; Globulin 3.5 g/dL (2.2-4.2); Glucose 297 mg/dL (74-106); Magnesium 1.9 mg/dL (1.6-2.6); Phosphorus 2.6 mg/dL (2.5-4.9); Potassium 3.1 mmol/L (3.5-5.1); Protein, Total 6.4 g/dL (6.4-8.2); Sodium Level 136 mmol/L (136-145)
[2023-12-06 08:13] VITALS: BP 108/66; PULSE 75; RESP 16; TEMP 36.8; O2SAT 95
[2023-12-06] MEDS: Ciprofloxacin 500 MG Tablet PO ×2 (09:13→20:20)
[2023-12-06] MEDS: Phenytoin Na 100 MG Capsule 200 MG PO ×2 (09:13→17:16)
[2023-12-06] MEDS: Phenobarbital 32.4 MG Tablet 97.2000000000000028 MG PO ×2 (09:13→20:20)
[2023-12-06] MEDS: Enoxaparin 40 MG/0.4 ML Syringe SC (09:14)
[2023-12-06] MEDS: Potassium Chloride Oral Tablet 20 MEQ 60 MEQ PO (09:16)
--- NOTE | 2023-12-06 11:45 | CASEMGMT ---
RN CM Face to Face with patient for initial transition planning/care coordination assessment. RN CM introduced self and role at [facility]. Patient lying in bed, alert and oriented. Patient willing to participate in assessment and is able to answer all questions appropriately. Care providers, pharmacy, and demographics verified. Patient wishes to discharge home, denies need for home health at this time. Patient states he has no further needs or concerns at this time. CM to follow for discharge planning needs that may arise. PCP: Tila Sandoval with [facility] Specialists: none Preferred Pharmacy: [facility] Insurance: [employer] through [employer] Prescription Benefit: yes Living Will/HPOA: none LNOK: daughters, grandsons Living Arrangements: Patient lives with 2 daughter and 2 grandson in a 3 story home. Patient is independent and able to ambulate stairs. Transportation: self, daughter DME/HHC: Patient denies DME in the home. Patient will need glucometer at discharge. Patient is aware of DM testing and medication as grandson is type I DM. Disposition Plan: Patient to discharge home with family support and follow-up plans in place. Alma ALICEA, RN, CM
--- NOTE | 2023-12-06 12:00 | CASEMGMT ---
Social Work Reason for visit: Self pay status Met with patient, introducing to self and social work role. Checked in with patient about listed self pay status. Patient reports to have [employer] through [employer], which patient received through the Market[employer]. Reports insurance card is locked inside of patient's car at home, and patient has car keys at hospital; unable to have family come to get the car keys to get the insurance card. Impressed upon the patient the need for hospital to get insurance card, so as to attempt to bill insurance for patient. Patient reports will have to do this after leaves, as would be hard pressed to get any of patient's children to come to the hospital to assist. Patient shares that children do not like coming to hospital, and also have busy work schedules. Patient was talkative about events leading to hospitalization, discussed being at work, and having to crawl out of work because of this acute illness. Patient became tearful when recounting having to call patient's daughter to pick patient up, as patient felt badly for having daughter miss work for the patient. Supportive listening and encouragement given, reinforced that patient is important, patient's needs are important. Patient reports she and two daughters all work at [employer] and one of the daughters also has a second job at [employer]. Did explore with patient any concerns for SDOH, meeting basic needs at home. Patient denies any type of SDOH concerns. This program writer called registration department and spoke with Trudy, to see if patient's insurance could be verified without a card. Patient's insurance is not in the system to run verification without the card and policy number available. Plan: Plans to discharge home, and reports will get the insurance card back to the hospital. -HEATHER Awad
[2023-12-06 12:11] LABS: Bedside Glucose 450 mg/dL (74-106)
[2023-12-06 12:13] LABS: Hemoglobin A1c 11.1 % (3.8-5.6)
[2023-12-06] MEDS: Insulin NPH Human 100 UNITS/ML PEN 12 UNITS SC (15:02)
[2023-12-06 15:09] VITALS: BP 129/71; PULSE 75; RESP 18; TEMP 36.8; O2SAT 96
--- NOTE | 2023-12-06 15:20 | PN.HOSP_ITS ---
Reason for Visit Reason for Visit: Diagnoses Acute cystitis without hematuria (12/05/23) Subjective Subjective Patient admitted yesterday with worsening polyuria and polydipsia as well as progressive fatigue. No acute events overnight. Patient seen at bedside this morning. Sitting up comfortably in bed, conversing normally, no acute distress. Patient is fatigued appearing. States that she feels somewhat improved today compared yesterday. She is continue to be thirsty and has been drinking good amount of water, but she has not had to urinate as often. She does not have much of an appetite. She otherwise denies any acute pain or discomfort. No other acute concerns this time. Objective Data Objective Data Vital Signs: Vital Signs Temp Pulse Resp BP Pulse Ox O2 Del Method 98.2 F 75 18 129/71 H 96 Room Air 12/06/23 15:12/06/23 15:12/06/23 15:12/06/23 15:12/06/23 15:12/06/23 15:09 Oxygen Delivery Method Room Air Weight: 90.8 kg Body Mass Index (BMI) 27.9 Intake & Output: Intake and Output for Last 24 Hours 12/04/23 12/05/23 12/06/23 23:59 23:59 23:59 Intake Total 1200 / 1200 2477.5 / 2477.5 Balance 1200 / 1200 2477.5 / 2477.5 Medical Nutrition Assessment Dietitian: Malnutrition Criteria Met Start: 12/06/23 12:27 Freq: Status: Active Protocol: Document 12/06/23 12:27 SLA (Rec: 12/06/23 12:27 [facility] Desktop) Nutrition Malnutrition Evidence of Malnutrition Exists Yes Malnutrition (severe): Acute Illness/Injury Evidenced By Suboptimal Energy Intake ( Severe),Weight Loss (Severe) Clinical Problem Acute Disease or Injury Related Malnutrition Etiology related to new dx of diabetes & uncontrolled bld gluc cryptanalyst and inadequate energy intake Signs/Symptoms as evidenced by 7.4% unintended wt loss in past 1 month and pt eating <50% of est nutritional needs x past 3 -5 days Status Active Problem Altered Nutrient-Related Laboratory Values Etiology related to new dx of diabetes Signs/Symptoms as evidenced by gluc 473 (2/4) and 297 (2/5) Status Active Problem Recommendation Dietitian Recommendations/Changes Will change diet to 1800 pratik Consistent CHO / Cardiac diet to better meet est nutritional needs Will provide additional diet information at time of follow up if desired by pt. Lab / Micro Data 12/06/23 05:10 12/06/23 05:10 Labs: Laboratory Results - last 24 hr 12/05/23 17:04: POC Glucose 348 H 12/05/23 21:27: POC Glucose 396 H 12/06/23 04:05: POC Glucose 257 H 12/06/23 05:10: WBC 7.7, RBC 4.04 L, Hgb 12.1, Hct 35.2 L, MCV 87.1, MCH 30.0, MCHC 34.4, RDW Std Deviation 39.9, RDW Coeff of Ketan 12.6, Plt Count 239, MPV 10.9, Immature Gran % (Auto) 0.400, Neut % (Auto) 60.2, Lymph % (Auto) 28.3, Mon o % (Auto) 9.6, Eos % (Auto) 1.4, Baso % (Auto) 0.1, Absolute Neuts (auto) 4.7, Absolute Lymphs (auto) 2.19, Nucleated RBC % 0, Sodium 136, Potassium 3.1 L, Chloride 104, Carbon Dioxide 27.0, Anion Gap 5, BUN 15, Creatinine 0.50 L, Estim Creat Clear Calc 145.12, Est GFR (MDRD) Af Amer 159, Est GFR (MDRD) Non-Af 132, BUN/Creatinine Ratio 29.8 H, Glucose 297 H, Hemoglobin A1c 11.1 H, Calcium 8.5, Phosphorus 2.6, Magnesium 1.9, Total Bilirubin 0.30, Direct Bilirubin 0.16, AST 11 L, ALT 20, Alkaline Phosphatase 217 H, Total Protein 6.4, Albumin 2.9 L, Globulin 3.5, Albumin/Globulin Ratio 0.8 L, TSH 0.70 12/06/23 06:31: POC Glucose 264 H 12/06/23 11:49: POC Glucose 450 H Micro: Microbiology 12/05/23 13:24 Mucosa - Nasopharyngeal SARS-CoV-2, Influenza & RSV (PCR) - Final Physical Exam Const alert, oriented x3 and no apparent distress Constitutional Narrative: Pleasant middle-aged female, overweight, fatigued appearing, otherwise sitting up comfortably in bed, conversing normally, no acute distress. General Appearance: cooperative and comfortable HEENT normocephalic, head/scalp atraumatic, hearing grossly normal bilaterally, nasal mucous membranes and turbinates normal and moist oral mucous membranes Eyes PERRL, EOMs intact bilaterally and conjunctivae normal Neck full ROM, no lymphadenopathy and supple Lymph Lymphatic: no lymphadenopathy noted Chest inspection of chest normal Resp normal respiratory effort, normal air movement, no use of accessory muscles and clear to auscultation bilaterally Cardio regular rate, regular rhythm, no murmurs and peripheral pulses 2+ throughout GI normal to inspection, nondistended, normoactive bowel sounds, soft to palpation, non-tender and non-distended Back/Spine normal ROM Extremity normal to inspection, full ROM and no pedal edema Skin no rashes or lesions noted Neuro no focal motor deficits and no sensory deficits noted Speech: speech normal Psych mental status grossly normal Assessment & Plan Assessment/Plan (1) Diabetes: (2) Acute cystitis: PLAN: Plan Patient is a 63-year-old female who presented to [facility] ED on 12/05/2023 with worsening polyuria and polydipsia. 1. New onset diabetes mellitus Presented with blood glucose 473. No anion gap noted, no ketones in urine, no concern for DKA. Reported blood sugars in the 300s to 400s in the past, no previous diagnosis of diabetes and has never been on any diabetic agents per patient. A1c 11.1% on 12/06. Presumed type 2 diabetes mellitus. ? Given significantly elevated A1c, will initiate patient on basal plus prandial insulin. Will start Lantus 25 units at night, Humalog 8 units 3 times daily AC plus sliding scale insulin, adjust regimen as needed. Will plan to discharge patient on insulin with appropriate supplies. 2. Acute cystitis UA on admit with 500 leukocyte esterase, negative nitrates, 3+ bacteria. Patient reporting mild symptoms of burning with urination as well as urinary frequency. Urine culture pending. No recent urine cultures for comparison. ? Continue p.o. ciprofloxacin 500 mg twice daily, will plan for 7-day course total. 3. Vaginal rash ? No pustules or papules seen on initial evaluation, mucosa was dry with no discharge or itching. Suspected etiology is xeroderma. HSV swab pending. Emollient therapy as needed. 4. Hypokalemia ? Replete as needed. 5. Pseudohyponatremia, resolved ? Sodium 128 on admit, corrected sodium 133. Resolved on 12/06 after IV fluids. Chronic medical conditions: ? Hypertension: Holding home amlodipine and hydrochlorothiazide for now, restart when able. ? Seizure disorder: Continue home phenobarbital and phenytoin. Phenytoin level within normal range on admission. ? Hyperlipidemia: Continue home statin. DVT prophylaxis: Lovenox CODE STATUS: Full code, verified Expected disposition: Home, 1 to 2 days Total clinical time spent by myself addressing the patient's medical issues, reviewing all the data, and collaborating with patient's care team: 35 minutes. Charges/Coding Visit Charges Inpatient E&M: 05206 Subs Hosp L2
[2023-12-06 15:24] LABS: Bedside Glucose 365 mg/dL (74-106)
--- NOTE | 2023-12-06 16:22 | CHAPLAIN ---
Type of Pastoral Visit __x_ Initial Visit ___ Follow-up Visit ___ On-call Visit ___ General Patient Visit ___ Spiritual Assessment ___ Family Conference ___ Bereavement ___ Rapid Response ___ Code Blue ___ Other (describe below) Pastoral Care Referral From _x__ Patient ___ Family ___ Nurse ___ Physician ___ Tailoring Teacher ___ Cargo Services Coordinator ___ Other (describe below) Sacrament/Intervention _x__ Active listening ___ Anointing ___ Nondenominational ___ Bereavement ___ Communion ___ Jazmin exploration ___ _x__ Life review _x__ Prayer ___ Reconciliation ___ Sacrament of Sick ___ Supportive presence ___ Wedding ___ Other (describe below) Pastoral Comments patient talks about missing work and finding out she has a new illness; pt talks about other family members with the same illness; pt sometimes answers the questions with more comments about her family members instead of directly responding; pt welcomes a prayer
[2023-12-06 17:15] LABS: Bedside Glucose 331 mg/dL (74-106)
[2023-12-06] MEDS: Insulin Lispro 100 UNIT/ML INSULN.PEN 8 UNIT SC (17:16)
[2023-12-06] MEDS: Atorvastatin Calcium 20 MG Tablet PO (20:19)
[2023-12-06] MEDS: Insulin Glargine-YFGN 100 UNIT/ML Pen 25 UNIT SC (20:58)
[2023-12-06 21:00] VITALS: BP 128/90; PULSE 74; RESP 18; TEMP 36.7; O2SAT 99
[2023-12-06 22:47] LABS: Bedside Glucose 221 mg/dL (74-106)
[2023-12-07 05:49] LABS: Bedside Glucose 164 mg/dL (74-106)
[2023-12-07 08:04] VITALS: BP 126/79; PULSE 70; RESP 16; TEMP 36.7; O2SAT 94
[2023-12-07 08:23] LABS: ALB/GLOB Ratio 0.7 RATIO (0.9-2.4); AST(SGOT) 8 U/L (15-37); Alanine Aminotransfer ALT/SGPT 22 U/L (13-56); Albumin, Serum 2.8 g/dL (3.2-5.0); Alkaline Phosphatase 201 U/L (45-117); Anion Gap 7 (5-15); BUN 16 mg/dL (7-18); BUN/Creat Ratio 25.6 RATIO (10-20); Calcium,Total 9.1 mg/dL (8.5-10.1); Chloride 108 mmol/L (98-107); Creatinine, Serum 0.63 mg/dL (0.55-1.02); EST Glomerular Filtration Rate 103 mL/min (>60); Est Glom Filt Rate - Afr Amer 124 mL/min (>60); Estimated Creatinine Clearance 115.18 ml/min; Globulin 3.9 g/dL (2.2-4.2); Glucose 162 mg/dL (74-106); Potassium 3.9 mmol/L (3.5-5.1); Protein, Total 6.7 g/dL (6.4-8.2); Sodium Level 139 mmol/L (136-145)
[2023-12-07] MEDS: Phenytoin Na 100 MG Capsule 200 MG PO (08:42)
[2023-12-07] MEDS: Insulin Lispro 100 UNIT/ML INSULN.PEN SC ×2 (08:42→12:59)
[2023-12-07] MEDS: Insulin Lispro 100 UNIT/ML INSULN.PEN 8 UNIT SC ×2 (08:43→12:58)
[2023-12-07 09:04] LABS: Bedside Glucose 165 mg/dL (74-106)
[2023-12-07] MEDS: Phenobarbital 32.4 MG Tablet 97.2000000000000028 MG PO (09:32)
[2023-12-07] MEDS: Ciprofloxacin 500 MG Tablet PO (09:32)
[2023-12-07] MEDS: Enoxaparin 40 MG/0.4 ML Syringe SC (09:33)
--- NOTE | 2023-12-07 09:45 | CASEMGMT ---
JUAN MIGUEL BENNETT called [facility] to verify cost of insulin scripts and pen needles. Total cost is $89.99. JUAN MIGUEL BENNETT inquired with pharmacist regarding insurance information for Richa Henderson. ID# is [id number]. JUAN MIGUEL BENNETT updated hospitalist and SW regarding cost. SW updated regarding insurance coverage.
--- NOTE | 2023-12-07 12:00 | CASEMGMT ---
Social Work Collaboration with information technology program manager who is working with patient's pharmacy. Able to obtain patient's policy ID number for insurance: [id number]. Called [facility] and registration, providing name of insurance and ID number. [facility] was able to verify patient's insurance. -SHEREEN Awad
--- NOTE | 2023-12-07 12:15 | CASEMGMT ---
JUAN MIGUEL CM in to updated patient regarding cost of prescriptions, patient states she will be able to afford medication. Script received for glucometer and provided in discharge packet. Patient had no further questions or concerns.
[2023-12-07 12:41] LABS: Bedside Glucose 194 mg/dL (74-106)
--- NOTE | 2023-12-07 13:02 | DCINST_ITS ---
Discharge Instructions Diet Discharge Diet: Carb Control Diet Activity Discharge Activity: No Restrictions Weight Bearing Status: Full weight bearing Follow Up Care Please Follow Up With: REBEKAH NEWELL DO When: 1-2 weeks Test Results: Test results from this visit will be discussed in further detail at your follow- up appointment, if applicable. Pending Tests Upon Discharge: none Discharge Plan Admission Admit Date/Time: 12/05/23 16:00 Attending Provider: Abdon Ramon Primary Care Provider: REBEKAH NEWELL Consulting Providers: Brian Curtis Instructions Additional Instructions / Restrictions: Complete antibiotic course as noted below. Start checking your blood sugars 4 times per day and take insulin as noted below. Follow-up with your primary care doctor in the next 1 to 2 weeks. Can consider establishing with an processing talc and borate supervisor as well. Discharge Orders/Prescriptions Prescriptions: New insulin glargine [Basaglar KwikPen U-100 Insulin] 100 unit/mL (3 mL) insulin pen 25 unit subcut QHS Qty: 15 0RF insulin aspart U-100 100 unit/mL (3 mL) insulin pen 8 unit subcut TID Qty: 15 0RF (DME) Comfort EZ Pen [place] 33 gauge x 5/16 needle See Rx Instructions .Route Qty: 100 0RF Rx Instructions: As directed ciprofloxacin HCl 500 mg Tablet 500 mg PO BID 5 Days Qty: 10 0RF Continued phenobarbital 97.2 MG tablet 97.2 mg PO BID phenytoin sodium extended 100 MG capsule 200 mg PO BID amlodipine 5 MG tablet 5 mg PO DAILY simvastatin 40 mg tablet 40 mg PO QPM hydrochlorothiazide 12.5 mg capsule 12.5 mg PO DAILY Other Ambulatory Orders: Glucometer (Routine) Timeframe: 1 Day Location: Determined by Patient Ordered By: Dr. Abdon Ramon Referrals / Follow Up: Sarah Fraser MD [Med Staff - Manager Lan] - REBEKAH NEWELL DO [Primary Care Provider] - Disposition Disposition (needs filled in before D/C Order can be placed): Home, Self Care
--- NOTE | 2023-12-07 13:05 | DS.PCM_ITS ---
Providers Date of Admission: 12/05/23 Date of Discharge: 12/07/23 Primary Care Physician: REBEKAH NEWELL DO Reason For Visit: NEWLY DIAGNOSED DIABETES Diagnosis Discharge Diagnosis (1) Diabetes: Status: Acute Code(s): E11.9 - Type 2 diabetes mellitus without complications (2) Acute cystitis: Status: Acute Code(s): N30.00 - Acute cystitis without hematuria Medications at Discharge Home Medications phenobarbital 97.2 mg tablet 97.2 mg PO BID 03/26/14 phenytoin sodium extended 100 mg capsule 200 mg PO BID 03/26/14 amlodipine 5 mg tablet 5 mg PO DAILY 07/22/16 hydrochlorothiazide 12.5 mg capsule 12.5 mg PO DAILY 12/05/23 simvastatin 40 mg tablet 40 mg PO QPM 12/05/23 insulin aspart U-100 100 unit/mL (3 mL) subcutaneous pen 8 unit (0.08 mL) subcut TID #15 mL 12/06/23 insulin glargine 100 unit/mL (3 mL) subcutaneous pen (Basaglar KwikPen U-100 Insulin) 25 unit (0.25 mL) subcut QHS #15 mL 12/06/23 pen needle, diabetic 33 gauge x 5/16 (Comfort EZ Pen [place]) #100 ea 12/06/23 ciprofloxacin HCl 500 mg tablet 500 mg PO BID 5 days #10 tabs 12/07/23 Hospital Course Operations None Procedures None Summary of Care Provided Minutes Spent on Discharge: 35 Hospital Course: Patient is a 63-year-old female who presented to [facility] ED on 12/05/2023 with worsening polyuria and polydipsia. Hospital course as noted below. Patient discharged home in stable condition on 12/07. 1. New onset diabetes mellitus Presented with blood glucose 473. No anion gap noted, no ketones in urine, no concern for DKA. Reported blood sugars in the 300s to 400s in the past, no previous diagnosis of diabetes and has never been on any diabetic agents per patient. A1c 11.1% on 12/06. Presumed type 2 diabetes mellitus. ? Given significantly elevated A1c, initiated patient on basal plus prandial insulin while inpatient. Started patient on Lantus 25 units at night, Humalog 8 units 3 times daily AC plus sliding scale insulin. Blood sugar control improved on this regimen. Discharged patient on this regimen and prescribed patient appropriate supplies to check blood sugars 4 times daily. Recommend close outpatient follow-up with PCP and can consider establishing with endocrinology. Suspect patient could be started on oral medications to decrease insulin requirements going forward. 2. Acute cystitis UA on admit with 500 leukocyte esterase, negative nitrates, 3+ bacteria. Patient reporting mild symptoms of burning with urination as well as urinary frequency. Urine culture with pansensitive gram-negative rods. No recent urine cultures for comparison. ? Continue p.o. ciprofloxacin 500 mg twice daily on discharge with plan for 7- day course, stop date 12/11. 3. Vaginal rash ? No pustules or papules seen on initial evaluation, mucosa was dry with no discharge or itching. Suspected etiology is xeroderma. HSV swab pending on discharge. Emollient therapy as needed. 4. Hypokalemia ? Repleted as needed. 5. Pseudohyponatremia, resolved ? Sodium 128 on admit, corrected sodium 133. Resolved on 12/06 after IV fluids. Chronic medical conditions: ? Hypertension: Held home amlodipine and hydrochlorothiazide while inpatient as patient was volume down and hypotensive on admit. Okay to restart on discharge. ? Seizure disorder: Continue home phenobarbital and phenytoin. Phenytoin level within normal range on admission. ? Hyperlipidemia: Continue home statin. Total clinical time spent by myself addressing the patient's discharge needs: 35 minutes. Physical Exam Const alert, oriented x3 and no apparent distress Constitutional Narrative: Pleasant middle-aged female, overweight, fatigued appearing, otherwise sitting up comfortably in bed, conversing normally, no acute distress. General Appearance: cooperative and comfortable HEENT normocephalic, head/scalp atraumatic, hearing grossly normal bilaterally, nasal mucous membranes and turbinates normal and moist oral mucous membranes Eyes PERRL, EOMs intact bilaterally and conjunctivae normal Neck full ROM, no lymphadenopathy and supple Lymph Lymphatic: no lymphadenopathy noted Chest inspection of chest normal Resp normal respiratory effort, normal air movement, no use of accessory muscles and clear to auscultation bilaterally Cardio regular rate, regular rhythm, no murmurs and peripheral pulses 2+ throughout GI normal to inspection, nondistended, normoactive bowel sounds, soft to palpation, non-tender and non-distended Back/Spine normal ROM Extremity normal to inspection, full ROM and no pedal edema Skin no rashes or lesions noted Neuro no focal motor deficits and no sensory deficits noted Speech: speech normal Psych mental status grossly normal Medical Records Data Medical Nutrition Assessment Dietitian: Malnutrition Criteria Met Start: 12/06/23 12:27 Freq: Status: Active Protocol: Document 12/06/23 12:27 [facility] (Rec: 12/06/23 12:27 [facility] Desktop) Nutrition Malnutrition Evidence of Malnutrition Exists Yes Malnutrition (severe): Acute Illness/Injury Evidenced By Suboptimal Energy Intake ( Severe),Weight Loss (Severe) Clinical Problem Acute Disease or Injury Related Malnutrition Etiology related to new dx of diabetes & 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 Weight / BMI Weight Weight: 90.8 kg Body Mass Index (BMI) 27.9 ABG / Lab / Microbiology Data 12/06/23 05:10 12/07/23 06:37 Laboratory: Laboratory Results - last 24 hr 12/06/23 15:01: POC Glucose 365 H 12/06/23 16:56: POC Glucose 331 H 12/06/23 20:25: POC Glucose 221 H 12/07/23 05:28: POC Glucose 164 H 12/07/23 06:37: Sodium 139, Potassium 3.9, Chloride 108 H, Carbon Dioxide 24.0, Anion Gap 7, BUN 16, Creatinine 0.63, Estim Creat Clear Calc 115.18, Est GFR ( RD) Af Amer 124, Est GFR (MDRD) Non-Af 103, BUN/Creatinine Ratio 25.6 H, Glucose 162 H, Calcium 9.1, Total Bilirubin 0.20, AST 8 L, ALT 22, Alkaline Phosphatase 201 H, Total Protein 6.7, Albumin 2.8 L, Globulin 3.9, Albumin/Globulin Ratio 0.7 L 12/07/23 08:40: POC Glucose 165 H 12/07/23 12:22: POC Glucose 194 H Microbiology: Microbiology 12/05/23 14:45 Urine, Clean Catch Urine Culture - 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 12/05/23 13:24 Mucosa - Nasopharyngeal SARS-CoV-2, Influenza & RSV (PCR) - Final D/C Instructions Discharge Diet: Carb Control Diet Weight Bearing Status: Full weight bearing Pending Tests Upon Discharge: none Please Follow Up With: REBEKAH NEWELL DO When: 1-2 weeks Meaningful Use Info Meaningful Use Diagnoses (Choose all that apply): None applicable Discharge Plan Admission Admit Date/Time: 12/05/23 16:00 Attending Provider: Abdon Ramon Primary Care Provider: REBEKAH NEWELL Consulting Providers: Brian Curtis Instructions Additional Instructions / Restrictions: Complete antibiotic course as noted below. Start checking your blood sugars 4 times per day and take insulin as noted below. Follow-up with your primary care doctor in the next 1 to 2 weeks. Can consider establishing with an endocr inologist as well. Discharge Orders/Prescriptions Prescriptions: New insulin glargine [Basaglar KwikPen U-100 Insulin] 100 unit/mL (3 mL) insulin pen 25 unit subcut QHS Qty: 15 0RF insulin aspart U-100 100 unit/mL (3 mL) insulin pen 8 unit subcut TID Qty: 15 0RF (DME) Comfort EZ Pen [place] 33 gauge x 5/16 needle See Rx Instructions .Route Qty: 100 0RF Rx Instructions: As directed ciprofloxacin HCl 500 mg Tablet 500 mg PO BID 5 Days Qty: 10 0RF Continued phenobarbital 97.2 MG tablet 97.2 mg PO BID phenytoin sodium extended 100 MG capsule 200 mg PO BID amlodipine 5 MG tablet 5 mg PO DAILY simvastatin 40 mg tablet 40 mg PO QPM hydrochlorothiazide 12.5 mg capsule 12.5 mg PO DAILY Other Ambulatory Orders: Glucometer (Routine) Timeframe: 1 Day Location: Determined by Patient Ordered By: Dr. Abdon Ramon Referrals / Follow Up: Sarah Fraser MD [Med Staff - Management Assistant] - REBEKAH NEWELL DO [Primary Care Provider] - Disposition Disposition (needs filled in before D/C Order can be placed): Home, Self Care Charges/Coding Visit Charges Inpatient E&M: 27316 Disch Hosp >30min
--- NOTE | 2023-12-07 13:56 | PHA.DC.MC.R ---
Pharmacy [facility] has performed discharge medication reconciliation and counseling for this patient. 1. CIPROFLOXACIN 500MG PO BID 2. INSULIN ASPART 8UNITS SC TID 3. INSULIN GLARGINE 25UNITS SC QHS The patient's discharge medication list was reviewed for discrepancies and discrepancies were resolved. The patient was counseled on the following discharge medications and changes in medications for homegoing were reviewed. The Reason for Use, instructions for use, and potential side effects were reviewed for all new medications. The patient's questions regarding all of their medications were answered. The patient was able to verbally demonstrate an understanding of their discharge medications. Patient counseled by director of student aid, Germán. Medications at Discharge Home Medications phenobarbital 97.2 mg tablet 97.2 mg PO BID 03/26/14 phenytoin sodium extended 100 mg capsule 200 mg PO BID 03/26/14 amlodipine 5 mg tablet 5 mg PO DAILY 07/22/16 hydrochlorothiazide 12.5 mg capsule 12.5 mg PO DAILY 12/05/23 simvastatin 40 mg tablet 40 mg PO QPM 12/05/23 insulin aspart U-100 100 unit/mL (3 mL) subcutaneous pen 8 unit (0.08 mL) subcut TID #15 mL 12/06/23 insulin glargine 100 unit/mL (3 mL) subcutaneous pen (Basaglar KwikPen U-100 Insulin) 25 unit (0.25 mL) subcut QHS #15 mL 12/06/23 pen needle, diabetic 33 gauge x 5/16 (Comfort EZ Pen [place]) #100 ea 12/06/23 ciprofloxacin HCl 500 mg tablet 500 mg PO BID 5 days #10 tabs 12/07/23
[2023-12-07 14:12] VITALS: BP 116/70; PULSE 76; RESP 16; TEMP 36.6; O2SAT 96
--- NOTE | 2024-01-17 11:44 | PCM.DC.SUM ---
Providers Date of Admission: 12/05/23 Primary Care Physician: REBEKAH NEWELL DO Reason For Visit: NEWLY DIAGNOSED DIABETES Diagnosis Discharge Diagnosis (1) Diabetes: Status: Acute Code(s): E11.9 - Type 2 diabetes mellitus without complications (2) Acute cystitis: Status: Acute Code(s): N30.00 - Acute cystitis without hematuria Medications at Discharge Home Medications phenobarbital 97.2 mg tablet 97.2 mg PO BID 03/26/14 phenytoin sodium extended 100 mg capsule 200 mg PO BID 03/26/14 amlodipine 5 mg tablet 5 mg PO DAILY 07/22/16 hydrochlorothiazide 12.5 mg capsule 12.5 mg PO DAILY 12/05/23 simvastatin 40 mg tablet 40 mg PO QPM 12/05/23 insulin aspart U-100 100 unit/mL (3 mL) subcutaneous pen 8 unit (0.08 mL) subcut TID #15 mL 12/06/23 insulin glargine 100 unit/mL (3 mL) subcutaneous pen (Basaglar KwikPen U-100 Insulin) 25 unit (0.25 mL) subcut QHS #15 mL 12/06/23 pen needle, diabetic 33 gauge x 5/16 (Comfort EZ Pen [place]) #100 ea 12/06/23 ciprofloxacin HCl 500 mg tablet 500 mg PO BID 5 days #10 tabs 12/07/23 Weight / BMI Weight Weight: 90.8 kg Body Mass Index (BMI) 27.9 ABG / Lab / Microbiology Data 12/06/23 05:10 12/07/23 06:37 Microbiology: Microbiology 12/05/23 13:24 Genital vaginal Herpes Simplex Virus Culture - Final 12/05/23 14:45 Urine, Clean Catch Urine Culture - Final Escherichia coli 12/05/23 13:24 Mucosa - Nasopharyngeal SARS-CoV-2, Influenza & RSV (PCR) - Final D/C Instructions Discharge Diet: Carb Control Diet Weight Bearing Status: Full weight bearing Pending Tests Upon Discharge: none Please Follow Up With: REBEKAH NEWELL DO When: 1-2 weeks Discharge Plan Admission Admit Date/Time: 12/05/23 16:00 Attending Provider: Abdon Ramon Primary Care Provider: REBEKAH NEWELL Consulting Providers: Brian Curtis Instructions Additional Instructions / Restrictions: Complete antibiotic course as noted below. Start checking your blood sugars 4 times per day and take insulin as noted below. Follow-up with your primary care doctor in the next 1 to 2 weeks. Can consider establishing with an business integration manager as well. Discharge Orders/Prescriptions Prescriptions: New insulin glargine [Basaglar KwikPen U-100 Insulin] 100 unit/mL (3 mL) insulin pen 25 unit subcut QHS Qty: 15 0RF insulin aspart U-100 100 unit/mL (3 mL) insulin pen 8 unit subcut TID Qty: 15 0RF (DME) Comfort EZ Pen [place] 33 gauge x 5/16 needle See Rx Instructions .Route Qty: 100 0RF Rx Instructions: As directed ciprofloxacin HCl 500 mg Tablet 500 mg PO BID 5 Days Qty: 10 0RF Continued phenobarbital 97.2 MG tablet 97.2 mg PO BID phenytoin sodium extended 100 MG capsule 200 mg PO BID amlodipine 5 MG tablet 5 mg PO DAILY simvastatin 40 mg tablet 40 mg PO QPM hydrochlorothiazide 12.5 mg capsule 12.5 mg PO DAILY Other Ambulatory Orders: Glucometer (Routine) Timeframe: 1 Day Location: Determined by Patient Ordered By: Dr. Abdon Ramon Referrals / Follow Up: Sarah Fraser MD [Med Staff - Skin Former] - REBEKAH NEWELL DO [Primary Care Provider] - Disposition Disposition (needs filled in before D/C Order can be placed): Home, Self Care
== END 2023-12-07 14:53 | disposition home or self-care (01) | DRG 420 ==
LOC: ED 13:38 → MS3 16:21
PROVIDERS: Admitting Provider Internal Medicine; Emergency Provider Emergency Medicine; PCP Family Medicine; Visit Provider Hospitalist
DX: E11.65 Type 2 diabetes mellitus with hyperglycemia (principal); E46 Unspecified protein-calorie malnutrition; G40.909 Epilepsy, unspecified, not intractable, without status epilepticus; I10 Essential (primary) hypertension; E78.00 Pure hypercholesterolemia, unspecified; E87.6 Hypokalemia; Z68.30 Body mass index [BMI] 30.0-30.9, adult; N30.00 Acute cystitis without hematuria; R21 Rash and other nonspecific skin eruption; Z79.899 Other long term (current) drug therapy
CPT/HCPCS: 36415; 80048; 80053; 80184; 80185; 81001; 82248; 82962; 83036; 83735; 84100; 84443; 85025; 87077; 87086; 87088; 87186; 87255; 87631; 99284; J7030; A4216; J0744

== ENCOUNTER 2024-09-03 15:07 | Emergency (ER) | payer MEDICAID, OTHER, SELFPAY ==
[2024-09-03 15:07] VITALS: BP 145/102; PULSE 69; RESP 16; TEMP 36.9; O2SAT 99; BMI 31.0
--- NOTE | 2024-09-03 15:10 | EX.ED.UPPERE ---
HPI History of Present Illness Chief Complaint: Upper Extremity Injury [facility] Medical History (Updated 09/03/24 @ 17:[address] Dewey Mayo DO) Diabetes Rheumatoid arthritis Encounter for screening for COVID-19 Seizure GERD (gastroesophageal reflux disease) High cholesterol Hypertension Home Medications ?Medication ?Instructions ?Recorded ?Last Taken ?Type phenobarbital 97.2 mg tablet 97.2 mg PO BID 03/26/14 12/05/23 History phenytoin sodium extended 100 mg 200 mg PO BID 03/26/14 12/05/23 History capsule amlodipine 5 mg tablet 5 mg PO DAILY 07/22/16 12/05/23 History hydrochlorothiazide 12.5 mg capsule 12.5 mg PO DAILY 12/05/23 12/05/23 History simvastatin 40 mg tablet 40 mg PO QPM 12/05/23 12/04/23 History insulin aspart U-100 100 unit/mL 8 unit (0.08 mL) subcut TID #15 mL 12/06/23 Unknown Rx (3 mL) subcutaneous pen insulin glargine 100 unit/mL (3 25 unit (0.25 mL) subcut QHS #15 mL 12/06/23 Unknown Rx mL) subcutaneous pen (Basaglar KwikPen U-100 Insulin) pen needle, diabetic 33 gauge x #100 ea 12/06/23 Unknown Rx 03/16 (Comfort EZ Pen [place]) ciprofloxacin HCl 500 mg tablet 500 mg PO BID 5 days #10 tabs 12/07/23 Unknown Rx doxycycline hyclate 100 mg capsule 100 mg PO BID #14 caps 09/03/24 Unknown Rx Allergy/AdvReac Type Severity Reaction Status Date / Time ibuprofen Allergy Swelling Verified 09/03/24 15:09 Penicillins Allergy Angioedema Verified 09/03/24 15:09 sulfamethoxazole (From Allergy Hives Verified 09/03/24 15:09 Septra) trimethoprim (From Septra) Allergy Hives Verified 09/03/24 15:09 Social History household members: none Smoking Status: Never smoker substance use type: does not use EXAM Physical Exam Const Vital Signs: 09/03/24 15:07 Temperature 98.4 F Temperature Source Oral Pulse Rate 69 Respiratory Rate 16 Blood Pressure 145/102 H Blood Pressure Mean 116 Pulse Ox 99 Oxygen Delivery Method Room Air MDM MDM MDM Narrative Medical decision making narrative: HISTORY OF PRESENT ILLNESS: 63-year-old female presents with left fourth digit pain for the last couple of weeks. Notes redness and increasing pain with movement that makes it difficult for accomplish a full range of motion. REVIEW OF SYSTEMS: Pertinent positives: Finger pain, redness Pertinent negatives: fever, chills, trauma PHYSICAL EXAM: Nursing triage notes reviewed, Vital signs reviewed Constitutional: please see mdm Extremities: No edema Neuro: Intact 5/5 strength with ok sign (median), intact finger abduction (ulnar) intact wrist extension (radial n). Intact sensation in the radial, ulnar, and median nerve distributions. Skin: slight erythema over the dorsal surface of the left fourth digit, there is a swan-neck deformity noted to the distal IP, there is no fusiform swelling, there is no pain over the flexor tendons, there is no obvious deformities to suggest an open fracture MEDICAL DECISION MAKING: Chief Complaint: Finger pain External records reviewed: Reviewed prior imaging studies Factors affecting care: type 2 diabetes Social determinants of health: none History obtained from others: none Consults: none [facility] Narrative: Patient was hemodynamically stable, afebrile, nontoxic-appearing. Exam swan-neck deformity and slight erythema over the distal IP joint. I considered the following differential diagnosis: Felon, paronychia, osteomyelitis, flexor tenosynovitis The patient's clinical exam is most consistent with cellulitis. There is no fluctuance induration distress abscess. No sign of felon or paronychia. I obtained an x-ray rule out osteomyelitis. ALL IMAGES (IF OBTAINED) HAVE BEEN PERSONALLY REVIEWED AND INTERPRETED BY MYSELF. X-ray of the fingers were read and reviewed myself showed evidence of mallet deformity, no obvious fracture dislocation, no evidence of osteomyelitis. Radiologist noted fracture with dorsal plate of the fourth distal phalanx. Finger splint applied. Doxycycline given for home-going to treat presumed cellulitis. The patient and/or family, caregivers express understanding. The patient and/or family, caregivers agrees with the plan. Shared decision making: I will have a discussion with the patient and or visitors regarding risk/benefits of further testing or admission. They will be made aware of of the risk/benefits inherent in this decision they will be given the opportunity to voice understanding. Total critical care time today provided was at least 0 minutes. This excludes separately billable procedures. Critical care time (if documented) is secondary to the patient having high probability of clinically significant/life threatening deterioration in the patient's condition which required my urgent intervention. Impression: 1. Finger pain 2. History of type 2 diabetes Dispo: discharge home This note was generated with [employer] dictation software. It may contain incorrect words, spelling, and punctuation that were not noted in review of the chart prior to signing. Discharge Plan Triage Chief Complaint: Upper Extremity Injury ED Provider: Dewey Mayo Dx/Rx/DC Orders Clinical Impression: Finger fracture, left Instructions: Cellulitis, ED Mallet Finger Prescriptions: New doxycycline hyclate 100 mg capsule 100 mg PO BID Qty: 14 0RF No Action phenobarbital 97.2 MG tablet 97.2 mg PO BID phenytoin sodium extended 100 MG capsule 200 mg PO BID amlodipine 5 MG tablet 5 mg PO DAILY simvastatin 40 mg tablet 40 mg PO QPM hydrochlorothiazide 12.5 mg capsule 12.5 mg PO DAILY insulin glargine [Basaglar KwikPen U-100 Insulin] 100 unit/mL (3 mL) insulin pen 25 unit subcut QHS Qty: 15 0RF insulin aspart U-100 100 unit/mL (3 mL) insulin pen 8 unit subcut TID Qty: 15 0RF (DME) Comfort EZ Pen [place] 33 gauge x 5/16 needle See Rx Instructions .Route Qty: 100 0RF Rx Instructions: As directed ciprofloxacin HCl 500 mg Tablet 500 mg PO BID 5 Days Qty: 10 0RF Primary Care Provider: Sarah Fraser Referrals: Rolf Cruz MD [Med Staff - Active Staff] - Activity Restrictions/Additional Instructions: Thank you for trusting us with your care today! Your x-ray showed evidence of a small fracture of your finger. Please keep your finger in a splint for the next 6 weeks. Please take doxycycline until your course is complete. Please take Tylenol (2 pills, 650 mg), ibuprofen (2 pills, 400 mg) every 6 hours as needed for pain and fever control. Please return to the emergency department if your symptoms change or worsen. Please follow with hand surgery for further outpatient evaluation and management. Print Language: Mauritian Disposition Disposition: Home, Self Care Discharge Date/Time: 09/03/24 17:14
--- NOTE | 2024-09-03 15:40 | RAD_ITS ---
STUDY: XR Hand Min 3 Views REASON FOR EXAM: Female, 63 years old. left 4th digit pain TECHNIQUE: XR Hand Min 3 Views LEFT COMPARISON: None. FINDINGS: Normal radiocarpal articulation. Normal distal radioulnar joint. Normal visualized carpal bones. Normal carpal articulations Mild degenerative findings of the first carpal metacarpal joint and first metacarpophalangeal joint. Normal metacarpi. Normal metacarpophalangeal joint of the thumb. Normal interphalangeal joint of the thumb. Normal proximal and distal phalanges of the thumb. Normal metacarpophalangeal joints of the second through fifth fingers. Normal proximal and distal interphalangeal joints of the second through fifth fingers. Fracture of the dorsal plate of the fourth distal phalanx. The soft tissue structures are unremarkable. RAD/Hand Min 3 Views IMPRESSION: Mild degenerative findings of the first carpal metacarpal joint and first metacarpophalangeal joint. Fracture of the dorsal plate of the fourth distal phalanx. Electronically Signed: Zoltan Moscoso MD at 16:19 EST Reading Location ID and State: [facility] / [place] , Service support ,
[2024-09-03] MEDS: Doxycycline 100 MG CAPSULE PO (16:05)
== END 2024-09-03 17:14 | disposition home or self-care (01) ==
PROVIDERS: Emergency Provider Emergency Medicine; PCP Internal Medicine; Visit Provider Emergency Medicine
DX: S62.635A Displaced fracture of distal phalanx of left ring finger, initial encounter for closed fracture (principal); E11.9 Type 2 diabetes mellitus without complications; X58.XXXA Exposure to other specified factors, initial encounter
CPT/HCPCS: 73130; 99283